=== PATIENT | male | born 1960 | race Caucasian/White ===

== ENCOUNTER 2021-08-30 08:23 | Inpatient (IN) ==
[2021-08-30] MEDS ORDERED: *HR* LORazepam 2 MG/ML VIAL ONE (09:04)
[2021-08-30 09:15] LABS: Basophils # 0.1 K/mcL (0.0-0.2); Basophils % 1.2 %; Eosinophils # 0.2 K/mcL (0.0-0.6); Eosinophils % 2.1 %; Hematocrit 46.3 % (37.5-50.1); Hemoglobin 14.9 g/dL (12.9-16.9); Immature Granulocytes % 0.4 % (0-4); Lymphocytes # 2.6 K/mcL (0.6-4.6); Lymphocytes % 27.7 %; Mean Corpuscular HGB Conc 32.2 g/dL (31.6-35.5); Mean Corpuscular Hemoglobin 30.9 pg (28.0-33.3); Mean Corpuscular Volume 96.1 fL (83.0-100.0); Mean Platelet Volume 11.6 fL (9.4-12.4); Monocytes # 0.8 K/mcL (0.0-1.3); Monocytes % 8.4 %; Neutrophils # 5.6 K/mcL (1.6-8.9); Platelet Count 204 K/mcL (140-400); Red Blood Count 4.82 M/mcL (4.19-5.50); Red Cell Distribution Width 13.8 % (11.5-14.5); Segmented Neutrophils % 60.2 %; White Blood Count 9.2 K/mcL (4.3-11.1)
[2021-08-30 09:22] LABS: INR 1.6; Prothrombin Time 17.9 Seconds (9.4-12.1)
[2021-08-30 09:30] LABS: BUN/Creatinine Ratio 19 (6-26); Blood Urea Nitrogen 21 mg/dL (8-23); Calcium 10.5 mg/dL (8.6-10.3); Carbon Dioxide 22 mEq/L (23-29); Chloride 104 mEq/L (98-107); Glucose 249 mg/dL (70-105); Osmolality,Calculated 291 (280-300); Sodium 135 mEq/L (136-145); eGFR For African Americans > 60 (> 60); eGFR For Non-African Americans > 60 (> 60)
[2021-08-30 09:31] LABS: Troponin I < 0.03 ng/mL (< 0.04)
[2021-08-30] MEDS ORDERED: Furosemide 40 MG/4 ML VIAL IVP ONE (10:01)
[2021-08-30 10:21] LABS: D-Dimer < 215 ng/mLFEU (0-500)
[2021-08-30] MEDS ORDERED: Naloxone 0.4 MG/ML INJ IVP PRN (10:59)
[2021-08-30] MEDS ORDERED: Ondansetron 4 MG/2 ML VIAL IVP PRN (10:59)
[2021-08-30] MEDS ORDERED: Acetaminophen 325 MG TABLET PO PRN (10:59)
[2021-08-30] MEDS ORDERED: Perflutren Lipid Microsphere 1.3 ML in 0.9 % Sodium Chloride 8.7 ML IVP PRN ×2 (11:10→13:25)
[2021-08-30] MEDS ORDERED: Ipratropium/Albuterol Neb 3 ML IH PRN (11:13)
[2021-08-30] MEDS ORDERED: *HR* Dextrose 50 % in Water (Syg) 50 ML SYRINGE IVP PRN (11:17)
[2021-08-30] MEDS ORDERED: Dextrose Gel 15 GM/37.5 ML TUBE PO PRN ×2 (11:17)
[2021-08-30] MEDS ORDERED: D5% in Water 1,000 ML IVC PRN (11:17)
[2021-08-30 11:44] LABS: Influenza A PCR Negative (Negative); Influenza B PCR Negative (Negative); Resp. Syncytial Virus PCR Negative (Negative); SARS-CoV-2 by PCR (In House) Negative (Negative)
[2021-08-30] MEDS ORDERED: Metoprolol XL (24 HR) Succ 25 MG TAB.ER.24H PO SCH (13:45)
[2021-08-30] MEDS ORDERED: Furosemide 40 MG/4 ML VIAL ONE (14:06)
[2021-08-30 15:53] LABS: Estimated Average Glucose 146 mg/dl; Hemoglobin A1C 6.7 %
[2021-08-30] MEDS: Furosemide 40 MG/4 ML VIAL IVP SCH (18:17)
[2021-08-30] MEDS: Insulin LISPRO 300 UNITS/3 ML VIAL SUBQ SCH ×2 (18:18→20:34)
[2021-08-30] MEDS: Spironolactone 25 MG TABLET PO SCH (18:18)
[2021-08-30] MEDS: *HR* Rivaroxaban 10 MG TABLET PO SCH (18:18)
[2021-08-30] MEDS: Metoprolol XL (24 HR) Succ 25 MG TAB.ER.24H PO SCH (20:34)
[2021-08-31 03:54] LABS: Basophils # 0.1 K/mcL (0.0-0.2); Basophils % 0.9 %; Eosinophils # 0.2 K/mcL (0.0-0.6); Eosinophils % 2.6 %; Hematocrit 42.6 % (37.5-50.1); Hemoglobin 13.7 g/dL (12.9-16.9); Immature Granulocytes % 0.4 % (0-4); Lymphocytes % 24.4 %; Mean Corpuscular HGB Conc 32.2 g/dL (31.6-35.5); Mean Corpuscular Hemoglobin 30.9 pg (28.0-33.3); Mean Corpuscular Volume 95.9 fL (83.0-100.0); Mean Platelet Volume 11.5 fL (9.4-12.4); Monocytes # 0.8 K/mcL (0.0-1.3); Monocytes % 9.5 %; Platelet Count 168 K/mcL (140-400); Red Blood Count 4.44 M/mcL (4.19-5.50); Red Cell Distribution Width 13.9 % (11.5-14.5); Segmented Neutrophils % 62.2 %; White Blood Count 8.1 K/mcL (4.3-11.1)
[2021-08-31 04:10] LABS: Alanine Aminotransferase 20 Units/L (7-52); Albumin 4.5 g/dL (3.5-5.7); Alkaline Phosphatase 27 Units/L (34-104); Aspartate Amino Transferase 15 Units/L (13-39); BUN/Creatinine Ratio 17 (6-26); Bilirubin,Total 1.5 mg/dL (0.3-1.0); Blood Urea Nitrogen 19 mg/dL (8-23); Calcium 9.8 mg/dL (8.6-10.3); Carbon Dioxide 29 mEq/L (23-29); Chloride 100 mEq/L (98-107); Chol/HDL Ratio 2.6 (0-4.9); Cholesterol 87 mg/dL (< 200); Globulin 2.2 g/dL (2.4-3.5); Glucose 136 mg/dL (70-105); HDL Cholesterol 34 mg/dL (40-59); LDL Cholesterol,Calculated 24 mg/dL (< 100); Osmolality,Calculated 292 (280-300); Potassium 3.8 mEq/L (3.5-5.1); Sodium 139 mEq/L (136-145); Total Protein 6.7 g/dL (6.4-8.9); Triglycerides 146 mg/dL (< 150); eGFR For African Americans > 60 (> 60); eGFR For Non-African Americans > 60 (> 60)
[2021-08-31] MEDS: Furosemide 40 MG/4 ML VIAL IVP SCH ×2 (08:51→17:53)
[2021-08-31] MEDS: Metoprolol XL (24 HR) Succ 25 MG TAB.ER.24H PO SCH ×2 (08:51→21:16)
[2021-08-31] MEDS: Spironolactone 25 MG TABLET PO SCH (08:51)
[2021-08-31] MEDS: Aspirin Enteric Coated 81 MG Tablet PO SCH (08:51)
[2021-08-31] MEDS: Insulin LISPRO 300 UNITS/3 ML VIAL SUBQ SCH ×4 (08:54→20:27)
[2021-08-31] MEDS ORDERED: Furosemide 40 MG/4 ML VIAL IVP SCH (09:00)
[2021-08-31 11:22] LABS: Magnesium 1.2 mg/dL (1.6-2.6); Phosphorous 4.2 mg/dL (2.7-4.5)
[2021-08-31] MEDS: metOLazone 5 MG TABLET PO SCH (12:18)
[2021-08-31] MEDS ORDERED: Magnesium Sulfate 1 GM/102 ML PIGGYBACK IVPB ONE (16:30)
[2021-08-31] MEDS: *HR* Rivaroxaban 10 MG TABLET PO SCH (17:53)
[2021-08-31 17:58] LABS: Bilirubin,Urine Negative (Negative); Blood,Urine Negative (Negative); Clarity,Urine Clear (Clear); Color,Urine Light-Yellow (Yellow); Glucose,Urine (UA) Normal (Normal); Ketones,Urine Negative (Negative); Leukocyte Esterase,Urine Negative (Negative); Nitrite,Urine Negative (Negative); PH,Urine 5.5 pH Units (5.0-8.0); Protein,Urine Negative (Neg-Trace); Specific Gravity,Urine 1.013 (1.010-1.025); Urobilinogen,Urine Normal (Normal)
[2021-09-01 04:29] LABS: Basophils # 0.1 K/mcL (0.0-0.2); Basophils % 1.1 %; Eosinophils # 0.2 K/mcL (0.0-0.6); Hematocrit 43.7 % (37.5-50.1); Hemoglobin 14.8 g/dL (12.9-16.9); Immature Granulocytes % 0.3 % (0-4); Lymphocytes # 2.3 K/mcL (0.6-4.6); Lymphocytes % 32.4 %; Mean Corpuscular HGB Conc 33.9 g/dL (31.6-35.5); Mean Corpuscular Hemoglobin 31.3 pg (28.0-33.3); Mean Corpuscular Volume 92.4 fL (83.0-100.0); Mean Platelet Volume 11.2 fL (9.4-12.4); Monocytes # 0.8 K/mcL (0.0-1.3); Monocytes % 11.9 %; Neutrophils # 3.6 K/mcL (1.6-8.9); Platelet Count 166 K/mcL (140-400); Red Blood Count 4.73 M/mcL (4.19-5.50); Red Cell Distribution Width 13.7 % (11.5-14.5); Segmented Neutrophils % 51.3 %
[2021-09-01 04:42] LABS: BUN/Creatinine Ratio 23 (6-26); Blood Urea Nitrogen 27 mg/dL (8-23); Calcium 10.2 mg/dL (8.6-10.3); Carbon Dioxide 30 mEq/L (23-29); Chloride 96 mEq/L (98-107); Glucose 159 mg/dL (70-105); Magnesium 1.7 mg/dL (1.6-2.6); Osmolality,Calculated 292 (280-300); Potassium 3.5 mEq/L (3.5-5.1); Sodium 137 mEq/L (136-145); eGFR For African Americans > 60 (> 60); eGFR For Non-African Americans > 60 (> 60)
[2021-09-01] MEDS ORDERED: *HR* Metoprolol 5 MG/5 ML VIAL IVP ONE (06:45)
[2021-09-01] MEDS: Furosemide 40 MG/4 ML VIAL IVP SCH ×2 (09:22→17:12)
[2021-09-01] MEDS: metOLazone 5 MG TABLET PO SCH (09:22)
[2021-09-01] MEDS: Aspirin Enteric Coated 81 MG Tablet PO SCH (09:22)
[2021-09-01] MEDS: Spironolactone 25 MG TABLET PO SCH (09:22)
[2021-09-01] MEDS: Metoprolol XL (24 HR) Succ 25 MG TAB.ER.24H PO SCH (09:22)
[2021-09-01] MEDS: Insulin LISPRO 300 UNITS/3 ML VIAL SUBQ SCH ×4 (09:23→20:11)
[2021-09-01] MEDS: *HR* Rivaroxaban 10 MG TABLET PO SCH (17:13)
[2021-09-01] MEDS: Metoprolol XL (24 HR) Succ 50 MG TAB.ER.24H PO SCH (20:11)
[2021-09-02 03:42] LABS: Basophils # 0.1 K/mcL (0.0-0.2); Basophils % 1.1 %; Eosinophils # 0.2 K/mcL (0.0-0.6); Hematocrit 45.7 % (37.5-50.1); Hemoglobin 15.1 g/dL (12.9-16.9); Immature Granulocytes % 0.3 % (0-4); Lymphocytes # 2.2 K/mcL (0.6-4.6); Lymphocytes % 27.5 %; Mean Corpuscular Hemoglobin 30.6 pg (28.0-33.3); Mean Corpuscular Volume 92.5 fL (83.0-100.0); Mean Platelet Volume 10.9 fL (9.4-12.4); Monocytes % 12.4 %; Neutrophils # 4.5 K/mcL (1.6-8.9); Platelet Count 171 K/mcL (140-400); Red Blood Count 4.94 M/mcL (4.19-5.50); Red Cell Distribution Width 13.8 % (11.5-14.5); Segmented Neutrophils % 55.7 %
[2021-09-02 04:14] LABS: BUN/Creatinine Ratio 28 (6-26); Blood Urea Nitrogen 40 mg/dL (8-23); Carbon Dioxide 29 mEq/L (23-29); Chloride 93 mEq/L (98-107); Glucose 206 mg/dL (70-105); Potassium 3.4 mEq/L (3.5-5.1); Sodium 137 mEq/L (136-145); eGFR For African Americans > 60 (> 60); eGFR For Non-African Americans 50 (> 60)
[2021-09-02 04:15] LABS: Calcium 10.5 mg/dL (8.6-10.3); Magnesium 1.6 mg/dL (1.6-2.6); Osmolality,Calculated 300 (280-300); Phosphorous 5.2 mg/dL (2.7-4.5)
[2021-09-02 04:20] VITALS: TEMP 97.6
[2021-09-02] MEDS: Insulin LISPRO 300 UNITS/3 ML VIAL SUBQ SCH ×2 (10:42→13:01)
[2021-09-02] MEDS: Spironolactone 25 MG TABLET PO SCH (10:43)
[2021-09-02] MEDS: Aspirin Enteric Coated 81 MG Tablet PO SCH (10:43)
[2021-09-02] MEDS: metOLazone 5 MG TABLET PO SCH (10:57)
[2021-09-02] MEDS: Furosemide 40 MG/4 ML VIAL IVP SCH (10:57)
[2021-09-02] MEDS: Metoprolol XL (24 HR) Succ 50 MG TAB.ER.24H PO SCH ×2 (10:58→12:30)
[2021-09-02 11:13] VITALS: BP 120/86; PULSE 91; O2SAT 94
[2021-09-02] MEDS ORDERED: Metoprolol XL (24 HR) Succ 50 MG TAB.ER.24H PO SCH (21:00)
[2021-09-03] MEDS ORDERED: Furosemide 40 MG TABLET PO SCH (09:00)
[2021-09-03] MEDS ORDERED: Metoprolol XL (24 HR) Succ 50 MG TAB.ER.24H PO ONE (09:26)
== END 2021-09-02 16:05 | disposition home or self-care (01) | DRG 291 ==
LOC: EMEROOARM 08:23 → 2ANU 08:23
PROVIDERS: ADMIT General Practice; ATTEND General Practice

== ENCOUNTER 2021-09-30 07:34 | Inpatient (IN) ==
[2021-09-30] MEDS ORDERED: 0.9 % Sodium Chloride 1,000 ML ONE ×2 (07:42→08:21)
[2021-09-30] MEDS ORDERED: ISOVUE-370 200 ML INFUS..BTL ONE (08:21)
[2021-09-30] MEDS ORDERED: *HR* Heparin 10,000 UNIT/10 ML VIAL ONE (08:21)
[2021-09-30] MEDS ORDERED: Heparin 1,000 UNITS/500 mL 500 ML ONE (08:21)
[2021-09-30] MEDS ORDERED: Nitroglycerin 1,000 MCG/5 ML VIAL IV ONE (08:21)
[2021-09-30 08:25] LABS: INR 1.3
[2021-09-30] MEDS ORDERED: *HR* FentaNYL (PF) 100 MCG/2 ML VIAL ONE (08:28)
[2021-09-30] MEDS ORDERED: *HR* Midazolam HCl 2 MG/2 ML VIAL ONE (08:29)
[2021-09-30] MEDS ORDERED: Tirofiban 12.5 MG/250ML 0 MG/0 ML BAG ONE (08:59)
[2021-09-30] MEDS ORDERED: *HR* Heparin 5,000 UNIT/ML VIAL IVP PRN ×2 (10:43)
[2021-09-30 12:22] LABS: Basophils # 0.1 K/mcL (0.0-0.2); Basophils % 1.7 %; Eosinophils # 0.7 K/mcL (0.0-0.6); Eosinophils % 12.6 %; Hematocrit 42.1 % (37.5-50.1); Hemoglobin 14.1 g/dL (12.9-16.9); Immature Granulocytes % 0.3 % (0-4); Lymphocytes # 1.1 K/mcL (0.6-4.6); Lymphocytes % 18.9 %; Mean Corpuscular HGB Conc 33.5 g/dL (31.6-35.5); Mean Corpuscular Hemoglobin 31.2 pg (28.0-33.3); Mean Corpuscular Volume 93.1 fL (83.0-100.0); Mean Platelet Volume 11.7 fL (9.4-12.4); Monocytes # 0.4 K/mcL (0.0-1.3); Monocytes % 7.1 %; Neutrophils # 3.5 K/mcL (1.6-8.9); Platelet Count 145 K/mcL (140-400); Red Blood Count 4.52 M/mcL (4.19-5.50); Red Cell Distribution Width 14.5 % (11.5-14.5); Segmented Neutrophils % 59.4 %; White Blood Count 5.9 K/mcL (4.3-11.1)
[2021-09-30 12:30] LABS: Activated Partial Thrombo Time 33.2 Seconds (26.0-36.0); Heparin anti-factor XA UFH < 0.04 IU/mL (0.30-0.70)
[2021-09-30 12:39] LABS: BUN/Creatinine Ratio 18 (6-26); Blood Urea Nitrogen 24 mg/dL (8-23); Calcium 10.2 mg/dL (8.6-10.3); Carbon Dioxide 27 mEq/L (23-29); Chloride 99 mEq/L (98-107); Glucose 262 mg/dL (70-105); Osmolality,Calculated 299 (280-300); Potassium 4.1 mEq/L (3.5-5.1); Sodium 138 mEq/L (136-145); eGFR For African Americans > 60 (> 60); eGFR For Non-African Americans 55 (> 60)
[2021-09-30] MEDS ORDERED: *HR* Heparin 5,000 UNIT/ML VIAL IVP ONE (13:00)
[2021-09-30] MEDS: Heparin 25,000UNIT/250ML 1/2NS 25,000 UNIT/250 ML IV.SOLN IVC SCH (13:16)
[2021-09-30] MEDS: Metoprolol XL (24 HR) Succ 50 MG TAB.ER.24H PO SCH (21:13)
[2021-09-30] MEDS: Pregabalin 75 MG CAPSULE PO SCH (21:13)
[2021-10-01 04:50] LABS: Basophils # 0.1 K/mcL (0.0-0.2); Basophils % 1.7 %; Eosinophils # 1.1 K/mcL (0.0-0.6); Eosinophils % 17.1 %; Hematocrit 43.2 % (37.5-50.1); Hemoglobin 13.8 g/dL (12.9-16.9); Immature Granulocytes % 0.2 % (0-4); Lymphocytes # 2.5 K/mcL (0.6-4.6); Mean Corpuscular HGB Conc 31.9 g/dL (31.6-35.5); Mean Corpuscular Hemoglobin 30.1 pg (28.0-33.3); Mean Corpuscular Volume 94.3 fL (83.0-100.0); Mean Platelet Volume 11.1 fL (9.4-12.4); Monocytes # 0.6 K/mcL (0.0-1.3); Monocytes % 9.7 %; Neutrophils # 2.2 K/mcL (1.6-8.9); Platelet Count 135 K/mcL (140-400); Red Blood Count 4.58 M/mcL (4.19-5.50); Red Cell Distribution Width 14.3 % (11.5-14.5); Segmented Neutrophils % 33.3 %; White Blood Count 6.6 K/mcL (4.3-11.1)
[2021-10-01 05:10] LABS: BUN/Creatinine Ratio 18 (6-26); Blood Urea Nitrogen 22 mg/dL (8-23); Carbon Dioxide 26 mEq/L (23-29); Chloride 101 mEq/L (98-107); Glucose 151 mg/dL (70-105); Osmolality,Calculated 292 (280-300); Potassium 3.9 mEq/L (3.5-5.1); Sodium 138 mEq/L (136-145); eGFR For African Americans > 60 (> 60); eGFR For Non-African Americans 59 (> 60)
[2021-10-01] MEDS: Heparin 25,000UNIT/250ML 1/2NS 25,000 UNIT/250 ML IV.SOLN IVC SCH (07:11)
[2021-10-01] MEDS: Spironolactone 25 MG TABLET PO SCH (08:04)
[2021-10-01] MEDS: Aspirin Enteric Coated 81 MG Tablet PO SCH (08:04)
[2021-10-01] MEDS: Fenofibrate 54 MG TABLET PO SCH (08:04)
[2021-10-01] MEDS: Finasteride 5 MG TABLET PO SCH (08:04)
[2021-10-01] MEDS: Metoprolol XL (24 HR) Succ 50 MG TAB.ER.24H PO SCH ×2 (08:04→20:33)
[2021-10-01] MEDS: Cholecalciferol (D-3) 1,000 UNIT (25MCG) TABLET PO SCH (08:04)
[2021-10-01] MEDS: Pregabalin 75 MG CAPSULE PO SCH ×2 (08:04→20:32)
[2021-10-01] MEDS: Furosemide 40 MG TABLET PO SCH (08:04)
[2021-10-01] MEDS: (Fish Oil/Dha/Epa [Fish Oil 1,200 Mg Fish Oil] 1 EACH PO SCH (08:07)
[2021-10-01] MEDS ORDERED: lisinopriL 20 MG TABLET PO SCH (09:00)
[2021-10-02] MEDS: Heparin 25,000UNIT/250ML 1/2NS 25,000 UNIT/250 ML IV.SOLN IVC SCH ×2 (01:56→09:03)
[2021-10-02 05:17] LABS: Basophils % 1.9 %; Immature Granulocytes % 0.2 % (0-4); Red Cell Distribution Width 14.6 % (11.5-14.5)
[2021-10-02 05:19] LABS: Basophils # 0.1 K/mcL (0.0-0.2); Eosinophils # 0.7 K/mcL (0.0-0.6); Eosinophils % 13.7 %; Hematocrit 40.9 % (37.5-50.1); Hemoglobin 13.5 g/dL (12.9-16.9); Immature Platelets 5.6 % (1.1-6.1); Lymphocytes # 2.2 K/mcL (0.6-4.6); Lymphocytes % 41.6 %; Mean Corpuscular Hemoglobin 30.8 pg (28.0-33.3); Mean Corpuscular Volume 93.2 fL (83.0-100.0); Mean Platelet Volume 11.1 fL (9.4-12.4); Monocytes # 0.6 K/mcL (0.0-1.3); Monocytes % 10.8 %; Neutrophils # 1.7 K/mcL (1.6-8.9); Platelet Count 129 K/mcL (140-400); Red Blood Count 4.39 M/mcL (4.19-5.50); Segmented Neutrophils % 31.8 %; White Blood Count 5.3 K/mcL (4.3-11.1)
[2021-10-02 05:57] LABS: BUN/Creatinine Ratio 19 (6-26); Blood Urea Nitrogen 26 mg/dL (8-23); Calcium 9.9 mg/dL (8.6-10.3); Carbon Dioxide 27 mEq/L (23-29); Chloride 102 mEq/L (98-107); Glucose 157 mg/dL (70-105); Osmolality,Calculated 292 (280-300); Potassium 3.9 mEq/L (3.5-5.1); Sodium 137 mEq/L (136-145); eGFR For African Americans > 60 (> 60); eGFR For Non-African Americans 53 (> 60)
[2021-10-02] MEDS: Aspirin Enteric Coated 81 MG Tablet PO SCH (07:39)
[2021-10-02] MEDS: Cholecalciferol (D-3) 1,000 UNIT (25MCG) TABLET PO SCH (07:39)
[2021-10-02] MEDS: Furosemide 40 MG TABLET PO SCH (07:39)
[2021-10-02] MEDS: Pregabalin 75 MG CAPSULE PO SCH ×2 (07:40→21:09)
[2021-10-02] MEDS: lisinopriL 20 MG TABLET PO SCH (07:40)
[2021-10-02] MEDS: (Fish Oil/Dha/Epa [Fish Oil 1,200 Mg Fish Oil] 1 EACH PO SCH (07:40)
[2021-10-02] MEDS: Metoprolol XL (24 HR) Succ 50 MG TAB.ER.24H PO SCH ×2 (07:40→21:09)
[2021-10-02] MEDS: Spironolactone 25 MG TABLET PO SCH (07:40)
[2021-10-02] MEDS: Finasteride 5 MG TABLET PO SCH (07:40)
[2021-10-02] MEDS: Fenofibrate 54 MG TABLET PO SCH (07:40)
[2021-10-02] MEDS ORDERED: CeFAZolin Syr 2,000MG/20 ML 2,000 MG/20 ML SYRINGE IVPB ONE (15:22)
[2021-10-02] MEDS ORDERED: Heparin 1,000 UNITS/500 mL 1,000 ML ONE (15:39)
[2021-10-02 16:20] LABS: Basophils # 0.1 K/mcL (0.0-0.2); Basophils % 2.1 %; Eosinophils # 0.4 K/mcL (0.0-0.6); Eosinophils % 9.2 %; Hematocrit 44.4 % (37.5-50.1); Hemoglobin 14.7 g/dL (12.9-16.9); Immature Granulocytes % 0.2 % (0-4); Immature Platelets 5.3 % (1.1-6.1); Lymphocytes # 1.7 K/mcL (0.6-4.6); Lymphocytes % 35.9 %; Mean Corpuscular HGB Conc 33.1 g/dL (31.6-35.5); Mean Corpuscular Volume 93.7 fL (83.0-100.0); Mean Platelet Volume 10.8 fL (9.4-12.4); Monocytes # 0.5 K/mcL (0.0-1.3); Monocytes % 11.1 %; Platelet Count 136 K/mcL (140-400); Red Blood Count 4.74 M/mcL (4.19-5.50); Red Cell Distribution Width 14.4 % (11.5-14.5); Segmented Neutrophils % 41.5 %; White Blood Count 4.8 K/mcL (4.3-11.1)
[2021-10-02 16:29] LABS: INR 1.2; Prothrombin Time 13.6 Seconds (9.4-12.1)
[2021-10-02 16:32] LABS: Activated Partial Thrombo Time 62.7 Seconds (26.0-36.0)
[2021-10-02 16:51] LABS: Estimated Average Glucose 146 mg/dl; Hemoglobin A1C 6.7 %
[2021-10-02] MEDS ORDERED: *HR* FentaNYL (PF) 100 MCG/2 ML VIAL ONE (16:55)
[2021-10-02] MEDS ORDERED: *HR* Midazolam HCl 2 MG/2 ML VIAL ONE (16:55)
[2021-10-02 16:59] LABS: BUN/Creatinine Ratio 17 (6-26); Blood Urea Nitrogen 23 mg/dL (8-23); Calcium 10.7 mg/dL (8.6-10.3); Carbon Dioxide 27 mEq/L (23-29); Chloride 102 mEq/L (98-107); Chol/HDL Ratio 3.2 (0-4.9); Cholesterol 93 mg/dL (< 200); Glucose 136 mg/dL (70-105); HDL Cholesterol 29 mg/dL (40-59); LDL Cholesterol,Calculated 37 mg/dL (< 100); Osmolality,Calculated 296 (280-300); Potassium 4.3 mEq/L (3.5-5.1); Sodium 140 mEq/L (136-145); Triglycerides 137 mg/dL (< 150); eGFR For African Americans > 60 (> 60); eGFR For Non-African Americans 52 (> 60)
[2021-10-02] MEDS ORDERED: 0.9 % Sodium Chloride 250 ML ONE (17:08)
[2021-10-02 19:20] LABS: Basophils # 0.1 K/mcL (0.0-0.2); Basophils % 1.3 %; Eosinophils # 0.4 K/mcL (0.0-0.6); Eosinophils % 7.6 %; Hematocrit 42.9 % (37.5-50.1); Immature Platelets 5.1 % (1.1-6.1); Lymphocytes # 1.7 K/mcL (0.6-4.6); Lymphocytes % 37.2 %; Mean Corpuscular HGB Conc 32.6 g/dL (31.6-35.5); Mean Corpuscular Hemoglobin 30.6 pg (28.0-33.3); Mean Corpuscular Volume 93.7 fL (83.0-100.0); Mean Platelet Volume 10.7 fL (9.4-12.4); Monocytes # 0.5 K/mcL (0.0-1.3); Monocytes % 10.4 %; Platelet Count 127 K/mcL (140-400); Red Blood Count 4.58 M/mcL (4.19-5.50); Red Cell Distribution Width 14.3 % (11.5-14.5); Segmented Neutrophils % 43.5 %; White Blood Count 4.6 K/mcL (4.3-11.1)
[2021-10-02 19:23] LABS: INR 1.2; Prothrombin Time 13.9 Seconds (9.4-12.1)
[2021-10-02 19:26] LABS: Activated Partial Thrombo Time 42.5 Seconds (26.0-36.0)
[2021-10-02] MEDS: Chlorhexidine Rinse 15 ML MOUTHWASH MM SCH (21:09)
[2021-10-03] MEDS: Heparin 25,000UNIT/250ML 1/2NS 25,000 UNIT/250 ML IV.SOLN IVC SCH ×2 (01:00→13:41)
[2021-10-03] MEDS ORDERED: Aspirin 81 MG TAB.CHEW PO ONE (06:00)
[2021-10-03] MEDS ORDERED: CeFAZolin Syr 2,000MG/20 ML 2,000 MG/20 ML SYRINGE IVPB ONE ×2 (07:00→12:00)
[2021-10-03] MEDS: Aspirin Enteric Coated 81 MG Tablet PO SCH (07:11)
[2021-10-03] MEDS: Chlorhexidine Rinse 15 ML MOUTHWASH MM SCH ×2 (07:11→19:44)
[2021-10-03] MEDS: Pregabalin 75 MG CAPSULE PO SCH (07:11)
[2021-10-03] MEDS: Finasteride 5 MG TABLET PO SCH (07:12)
[2021-10-03] MEDS: Fenofibrate 54 MG TABLET PO SCH (07:12)
[2021-10-03] MEDS: Spironolactone 25 MG TABLET PO SCH (07:12)
[2021-10-03] MEDS: Cholecalciferol (D-3) 1,000 UNIT (25MCG) TABLET PO SCH (07:12)
[2021-10-03] MEDS: Furosemide 40 MG TABLET PO SCH (07:12)
[2021-10-03] MEDS: (Fish Oil/Dha/Epa [Fish Oil 1,200 Mg Fish Oil] 1 EACH PO SCH (07:15)
[2021-10-03] MEDS ORDERED: DOBUTamine 1,000 MG/250 ML BAG IVC SCH (07:15)
[2021-10-03] MEDS: lisinopriL 20 MG TABLET PO SCH (07:17)
[2021-10-03 07:28] LABS: Basophils % 1.3 %; Hemoglobin 14.1 g/dL (12.9-16.9); Monocytes % 9.9 %; Red Cell Distribution Width 14.5 % (11.5-14.5)
[2021-10-03 07:30] LABS: Basophils # 0.1 K/mcL (0.0-0.2); Eosinophils # 0.3 K/mcL (0.0-0.6); Eosinophils % 4.6 %; Hematocrit 42.9 % (37.5-50.1); Immature Granulocytes % 0.2 % (0-4); Immature Platelets 5.6 % (1.1-6.1); Lymphocytes # 1.6 K/mcL (0.6-4.6); Mean Corpuscular HGB Conc 32.9 g/dL (31.6-35.5); Mean Corpuscular Hemoglobin 30.7 pg (28.0-33.3); Mean Corpuscular Volume 93.5 fL (83.0-100.0); Mean Platelet Volume 10.9 fL (9.4-12.4); Monocytes # 0.6 K/mcL (0.0-1.3); Neutrophils # 3.7 K/mcL (1.6-8.9); Platelet Count 125 K/mcL (140-400); Red Blood Count 4.59 M/mcL (4.19-5.50); White Blood Count 6.3 K/mcL (4.3-11.1)
[2021-10-03] MEDS ORDERED: Norepinephrine 4 MG in 0.9 % Sodium Chloride 250 ML IVC PRN ×2 (07:45→16:28)
[2021-10-03] MEDS ORDERED: Buckersberg's Blood Cardioplegia PF SCH (07:45)
[2021-10-03] MEDS ORDERED: Heparin 15,000 UNIT in 0.9 % Sodium Chloride 500 ML IV ONE (07:45)
[2021-10-03 08:18] LABS: BUN/Creatinine Ratio 17 (6-26); Blood Urea Nitrogen 22 mg/dL (8-23); Calcium 9.9 mg/dL (8.6-10.3); Carbon Dioxide 29 mEq/L (23-29); Chloride 101 mEq/L (98-107); Glucose 159 mg/dL (70-105); Osmolality,Calculated 295 (280-300); Potassium 4.1 mEq/L (3.5-5.1); Sodium 139 mEq/L (136-145); eGFR For African Americans > 60 (> 60); eGFR For Non-African Americans 55 (> 60)
[2021-10-03] MEDS: Metoprolol XL (24 HR) Succ 50 MG TAB.ER.24H PO SCH (08:44)
[2021-10-03] MEDS: Albumin Human 5% 50.0 GM/1,000 ML IV.SOLN ONE ×2 (09:32→16:17)
[2021-10-03] MEDS ORDERED: NiCARdipine 2.5 MG/10 ML Syringe IVPB ONE (10:29)
[2021-10-03] MEDS ORDERED: *HR* Vasopressin 20 UNIT/ML VIAL ONE (10:29)
[2021-10-03] MEDS ORDERED: Papaverine 60 MG/2 ML VIAL IVP ONE (10:39)
[2021-10-03] MEDS ORDERED: *HR* Midazolam HCl 5 MG/5 ML VIAL IVP ONE (10:43)
[2021-10-03] MEDS ORDERED: *HR* FentaNYL (PF) 1,000 MCG/20 ML VIAL ONE (10:43)
[2021-10-03] MEDS ORDERED: *HR* Propofol 200 MG/20 ML VIAL IVP ONE (10:43)
[2021-10-03] MEDS ORDERED: *HR* Magnesium Sulfate 1 GM/2 ML VIAL ONE (10:47)
[2021-10-03] MEDS ORDERED: Famotidine 20 MG/2 ML VIAL ONE (10:47)
[2021-10-03] MEDS ORDERED: Tranexamic Acid 1,000 MG/10 ML VIAL ONE (10:52)
[2021-10-03] MEDS ORDERED: Lidocaine 2% Syringe 100 MG/5 ML ONE (10:57)
[2021-10-03] MEDS ORDERED: *HR* Rocuronium Bromide 50 MG/5 ML VIAL ONE ×2 (10:59→13:37)
[2021-10-03] MEDS ORDERED: Albumin Human 5% 12.5 GM/250 ML IV.SOLN ONE ×2 (11:01→14:54)
[2021-10-03] MEDS ORDERED: Heparin 1,000 UNITS/500 mL IV.SOLN IR ONE (13:00)
[2021-10-03] MEDS ORDERED: D5% in Water 250 ML IV BAG IV ONE (13:00)
[2021-10-03 13:23] LABS: ABG Base Excess 2 mEq/L (-2 to 3); ABG Chloride 101 mEq/L (98-107); ABG Glucose 147 mg/dL (60-95); ABG HCO3 31 mEq/L (21-27); ABG Ionized Calcium 1.32 mmol/L (1.15-1.35); ABG Oxygen Saturation 100 % (95-98); ABG PCO2 64 mmHg (35-45); ABG PO2 324 mmHg (85-104); ABG TCO2 33 mEq/L (20-26)
[2021-10-03] MEDS ORDERED: *HR* Metoprolol 5 MG/5 ML VIAL IVP ONE (13:56)
[2021-10-03 14:22] LABS: ABG Base Excess 1 mEq/L (-2 to 3); ABG Chloride 102 mEq/L (98-107); ABG Glucose 170 mg/dL (60-95); ABG HCO3 26 mEq/L (21-27); ABG Ionized Calcium 1.19 mmol/L (1.15-1.35); ABG Oxygen Saturation 98 % (95-98); ABG PCO2 40 mmHg (35-45); ABG PH 7.42 pH Units (7.32-7.45); ABG PO2 96 mmHg (85-104); ABG TCO2 27 mEq/L (20-26)
[2021-10-03] MEDS ORDERED: Calcium Gluconate 1,000 MG/10 ML VIAL ONE (14:51)
[2021-10-03] MEDS ORDERED: Protamine Sulfate 250 MG/25 ML VIAL IVP ONE (14:51)
[2021-10-03 14:56] LABS: ABG Base Excess -1 mEq/L (-2 to 3); ABG Chloride 103 mEq/L (98-107); ABG Glucose 245 mg/dL (60-95); ABG HCO3 23 mEq/L (21-27); ABG Ionized Calcium 1.15 mmol/L (1.15-1.35); ABG Oxygen Saturation 100 % (95-98); ABG PCO2 34 mmHg (35-45); ABG PH 7.43 pH Units (7.32-7.45); ABG PO2 216 mmHg (85-104); ABG TCO2 24 mEq/L (20-26)
[2021-10-03] MEDS ORDERED: *HR* Amiodarone 150 MG/3 ML VIAL IVPB ONE (15:03)
[2021-10-03] MEDS ORDERED: Amiodarone Premix 360 MG/200 ML BAG IVC ONE ×3 (15:03→16:28)
[2021-10-03] MEDS ORDERED: Sennosides 8.6 MG TABLET PO PRN ×2 (16:01→16:28)
[2021-10-03] MEDS ORDERED: Potassium Chloride 40 MEQ/200 ML BAG IVPB PRN ×2 (16:01→16:28)
[2021-10-03] MEDS ORDERED: *HR* OxyCODONE/APAP 5/325 TABLET PO PRN ×2 (16:01→16:28)
[2021-10-03] MEDS ORDERED: *HR* FentaNYL (PF) 100 MCG/2 ML VIAL IVP PRN ×2 (16:01→16:28)
[2021-10-03] MEDS ORDERED: Insulin Regular, Human 100 UNIT/ML IV PRN ×2 (16:01→16:28)
[2021-10-03] MEDS ORDERED: Acetaminophen 325 MG TABLET PO PRN (16:01)
[2021-10-03] MEDS ORDERED: Ondansetron 4 MG/2 ML VIAL IVP PRN ×2 (16:01→16:28)
[2021-10-03] MEDS ORDERED: *HR* Dextrose 50 % in Water (Syg) 50 ML SYRINGE IVP PRN ×2 (16:01→16:28)
[2021-10-03] MEDS ORDERED: Calcium Gluconate 1gm/50mL 1 GM/50 ML BAG IVPB PRN ×2 (16:01→16:28)
[2021-10-03] MEDS ORDERED: Norepinephrine 4 MG/254 ML IV.SOLN IVC SCH (16:15)
[2021-10-03 16:24] LABS: ABG Base Excess -4 mEq/L (-2 to 3); ABG HCO3 23 mEq/L (21-27); ABG Oxygen Saturation 97 % (95-98); ABG PCO2 45 mmHg (35-45); ABG PH 7.31 pH Units (7.32-7.45); ABG PO2 97 mmHg (85-104); ABG TCO2 24 mEq/L (20-26); Blood Gas VT 500 cc
[2021-10-03] MEDS ORDERED: Heparin 25,000UNIT/250ML 1/2NS 25,000 UNIT/250 ML IV.SOLN IVC SCH (16:28)
[2021-10-03] MEDS ORDERED: *HR* Heparin 5,000 UNIT/ML VIAL IVP PRN ×2 (16:28)
[2021-10-03 16:30] LABS: Basophils # 0.2 K/mcL (0.0-0.2); Basophils % 0.9 %; Eosinophils # 0.3 K/mcL (0.0-0.6); Eosinophils % 1.4 %; Hematocrit 40.7 % (37.5-50.1); Hemoglobin 13.4 g/dL (12.9-16.9); Immature Granulocytes % 1.1 % (0-4); Lymphocytes # 1.3 K/mcL (0.6-4.6); Lymphocytes % 6.9 %; Mean Corpuscular HGB Conc 32.9 g/dL (31.6-35.5); Mean Corpuscular Hemoglobin 31.1 pg (28.0-33.3); Mean Corpuscular Volume 94.4 fL (83.0-100.0); Mean Platelet Volume 11.3 fL (9.4-12.4); Monocytes # 0.9 K/mcL (0.0-1.3); Monocytes % 4.7 %; Neutrophils # 15.7 K/mcL (1.6-8.9); Platelet Count 194 K/mcL (140-400); Red Blood Count 4.31 M/mcL (4.19-5.50); Red Cell Distribution Width 14.2 % (11.5-14.5)
[2021-10-03 16:32] LABS: White Blood Count 18.5 K/mcL (4.3-11.1)
[2021-10-03 16:36] LABS: INR 1.5; Prothrombin Time 16.4 Seconds (9.4-12.1)
[2021-10-03 16:38] LABS: ABG Base Excess -3 mEq/L (-2 to 3); ABG HCO3 23 mEq/L (21-27); ABG Oxygen Saturation 99 % (95-98); ABG PCO2 45 mmHg (35-45); ABG PH 7.32 pH Units (7.32-7.45); ABG PO2 149 mmHg (85-104); ABG TCO2 25 mEq/L (20-26)
[2021-10-03 16:38] LABS: Activated Partial Thrombo Time 23.1 Seconds (26.0-36.0)
[2021-10-03 16:45] LABS: BUN/Creatinine Ratio 16 (6-26); Blood Urea Nitrogen 22 mg/dL (8-23); Calcium 9.4 mg/dL (8.6-10.3); Carbon Dioxide 24 mEq/L (23-29); Chloride 102 mEq/L (98-107); Glucose 289 mg/dL (70-105); Magnesium 1.6 mg/dL (1.6-2.6); Osmolality,Calculated 298 (280-300); Potassium 3.8 mEq/L (3.5-5.1); Sodium 137 mEq/L (136-145); eGFR For African Americans > 60 (> 60); eGFR For Non-African Americans 54 (> 60)
[2021-10-03] MEDS: Dexmedetomidine HCl 400 MCG/100 ML MLS IVC SCH ×2 (17:35→23:04)
[2021-10-03] MEDS: FentaNYL (PF) 1,000 MCG/100 ML IV.SOLN IVC SCH (17:36)
[2021-10-03] MEDS: Norepinephrine 4 MG/254 ML IV.SOLN IVC SCH ×2 (17:37→23:36)
[2021-10-03] MEDS ORDERED: Albumin Human 5% 25.0 GM/500 ML IV.SOLN ONE (17:38)
[2021-10-03] MEDS: Albumin Human 5% 12.5 GM/250 ML IV.SOLN IVPB PRN ×9 (17:40→21:13)
[2021-10-03] MEDS: DOBUTamine 1,000 MG/250 ML BAG IVC SCH (17:41)
[2021-10-03] MEDS ORDERED: 0.9 % Sodium Chloride 500 ML ONE (18:36)
[2021-10-03] MEDS ORDERED: 0.9 % Sodium Chloride 500 ML IVC PRN (18:39)
[2021-10-03] MEDS: CeFAZolin 2 GM/120 ML BAG IVPB SCH (19:45)
[2021-10-03] MEDS ORDERED: CeFAZolin 2 GM/120 ML BAG IVPB SCH (20:00)
[2021-10-03 20:13] LABS: ABG Base Excess -2 mEq/L (-2 to 3); ABG HCO3 24 mEq/L (21-27); ABG Oxygen Saturation 95 % (95-98); ABG PCO2 44 mmHg (35-45); ABG PH 7.33 pH Units (7.32-7.45); ABG PO2 83 mmHg (85-104); ABG TCO2 25 mEq/L (20-26); Blood Gas Modality ASSIST CONTROL; Blood Gas VT 500 cc
[2021-10-03] MEDS: Amiodarone Premix 360 MG/200 ML BAG IVC SCH (20:19)
[2021-10-03] MEDS ORDERED: Chlorhexidine Rinse 15 ML MOUTHWASH MM SCH (21:00)
[2021-10-03] MEDS ORDERED: Amiodarone Premix 360 MG/200 ML BAG IVC SCH (22:04)
[2021-10-04] MEDS ORDERED: Furosemide 20 MG/2 ML VIAL IVP ONE (00:08)
[2021-10-04 00:09] LABS: ABG Base Excess -4 mEq/L (-2 to 3); ABG HCO3 23 mEq/L (21-27); ABG Oxygen Saturation 93 % (95-98); ABG PCO2 49 mmHg (35-45); ABG PH 7.28 pH Units (7.32-7.45); ABG PO2 74 mmHg (85-104); ABG TCO2 24 mEq/L (20-26); Blood Gas VT 500 cc
[2021-10-04] MEDS: Acetaminophen 325 MG TABLET PO PRN ×2 (02:48→20:53)
[2021-10-04] MEDS: Dexmedetomidine HCl 400 MCG/100 ML MLS IVC SCH ×8 (02:54→23:17)
[2021-10-04 03:18] LABS: Basophils % 0.2 %; Eosinophils % 0.1 %; Hematocrit 31.6 % (37.5-50.1); Hemoglobin 10.5 g/dL (12.9-16.9); Immature Granulocytes % 0.5 % (0-4); Immature Platelets 8.2 % (1.1-6.1); Lymphocytes # 0.8 K/mcL (0.6-4.6); Lymphocytes % 6.5 %; Mean Corpuscular HGB Conc 33.2 g/dL (31.6-35.5); Mean Corpuscular Hemoglobin 31.4 pg (28.0-33.3); Mean Corpuscular Volume 94.6 fL (83.0-100.0); Mean Platelet Volume 11.5 fL (9.4-12.4); Monocytes # 1.2 K/mcL (0.0-1.3); Monocytes % 10.2 %; Neutrophils # 10.1 K/mcL (1.6-8.9); Platelet Count 134 K/mcL (140-400); Red Blood Count 3.34 M/mcL (4.19-5.50); Segmented Neutrophils % 82.5 %; White Blood Count 12.2 K/mcL (4.3-11.1)
[2021-10-04 03:22] LABS: INR 1.6; Prothrombin Time 17.4 Seconds (9.4-12.1)
[2021-10-04] MEDS: CeFAZolin 2 GM/120 ML BAG IVPB SCH (03:38)
[2021-10-04 04:00] LABS: Calcium 9.2 mg/dL (8.6-10.3); Magnesium 1.9 mg/dL (1.6-2.6); Potassium 4.8 mEq/L (3.5-5.1)
[2021-10-04] MEDS: FentaNYL (PF) 1,000 MCG/100 ML IV.SOLN IVC SCH ×4 (04:06→21:08)
[2021-10-04 04:18] LABS: ABG Base Excess -3 mEq/L (-2 to 3); ABG HCO3 24 mEq/L (21-27); ABG Oxygen Saturation 93 % (95-98); ABG PCO2 52 mmHg (35-45); ABG PH 7.27 pH Units (7.32-7.45); ABG PO2 75 mmHg (85-104); ABG TCO2 26 mEq/L (20-26); Blood Gas VT 500 cc
[2021-10-04] MEDS ORDERED: Furosemide 40 MG/4 ML VIAL IVP ONE (06:11)
[2021-10-04] MEDS ORDERED: Furosemide 40 MG/4 ML VIAL ONE (06:12)
[2021-10-04] MEDS: DOBUTamine 1,000 MG/250 ML BAG IVC SCH (06:22)
[2021-10-04] MEDS ORDERED: *HR* Midazolam HCl 5 MG/5 ML VIAL IVP ONE ×3 (07:03→12:45)
[2021-10-04] MEDS ORDERED: *HR* Midazolam HCl 2 MG/2 ML VIAL IVP ONE (07:40)
[2021-10-04] MEDS: Amiodarone Premix 360 MG/200 ML BAG IVC SCH (07:46)
[2021-10-04] MEDS: Pantoprazole 40 MG VIAL IVP SCH (08:26)
[2021-10-04] MEDS: Fenofibrate 54 MG TABLET PO SCH (08:27)
[2021-10-04] MEDS: Finasteride 5 MG TABLET PO SCH (08:28)
[2021-10-04] MEDS: lisinopriL 20 MG TABLET PO SCH (08:28)
[2021-10-04] MEDS: Chlorhexidine Rinse 15 ML MOUTHWASH MM SCH ×2 (08:28→20:03)
[2021-10-04] MEDS: Aspirin 81 MG TAB.CHEW PO SCH (08:35)
[2021-10-04] MEDS: Docusate Oral Soln 100 MG/10 ML UDC GTUBE SCH ×2 (08:35→20:03)
[2021-10-04] MEDS: Norepinephrine 4 MG/254 ML IV.SOLN IVC SCH ×6 (08:50→20:15)
[2021-10-04] MEDS ORDERED: Pantoprazole 40 MG VIAL IVP SCH (09:00)
[2021-10-04] MEDS ORDERED: Aspirin Enteric Coated 81 MG Tablet PO SCH (09:00)
[2021-10-04] MEDS: Patient Taking Own Medication 1 EACH PO SCH (09:41)
[2021-10-04 10:08] LABS: ABG Base Excess 0 mEq/L (-2 to 3); ABG HCO3 25 mEq/L (21-27); ABG Oxygen Saturation 92 % (95-98); ABG PCO2 40 mmHg (35-45); ABG PO2 63 mmHg (85-104); ABG TCO2 26 mEq/L (20-26); Blood Gas Modality ASSIST CONTROL; Blood Gas VT 500 cc
[2021-10-04] MEDS: Furosemide 240 MG in 0.9 % Sodium Chloride 96 ML IVC SCH (11:05)
[2021-10-04] MEDS: Albumin 25% 25gram/100mL 25 GM/100 ML IV.SOLN IVPB SCH ×3 (11:19→23:00)
[2021-10-04] MEDS: ceFAZolin 2,000 MG in 0.9 % Sodium Chloride 100 ML IVPB SCH ×2 (11:41→19:03)
[2021-10-04] MEDS: *HR* Heparin 5,000 UNIT/ML VIAL SQ SCH ×2 (14:07→21:02)
[2021-10-04] MEDS: niCARdipine 20 MG/200 ML MLS IVC SCH ×4 (15:08→20:15)
[2021-10-04] MEDS: Artificial Tears SOLN 15 ML BOTTLE BOTH EYES SCH ×3 (15:11→20:02)
[2021-10-04] MEDS: Insulin LISPRO 300 UNITS/3 ML VIAL SUBQ SCH ×2 (19:07→23:00)
[2021-10-04 20:06] LABS: ABG Base Excess 0 mEq/L (-2 to 3); ABG HCO3 25 mEq/L (21-27); ABG Oxygen Saturation 94 % (95-98); ABG PCO2 41 mmHg (35-45); ABG PH 7.39 pH Units (7.32-7.45); ABG PO2 72 mmHg (85-104); ABG TCO2 26 mEq/L (20-26); Blood Gas VT 500 cc
[2021-10-05] MEDS: FentaNYL (PF) 1,000 MCG/100 ML IV.SOLN IVC SCH ×6 (01:25→23:00)
[2021-10-05] MEDS: Dexmedetomidine HCl 400 MCG/100 ML MLS IVC SCH ×10 (01:32→23:09)
[2021-10-05] MEDS: ceFAZolin 2,000 MG in 0.9 % Sodium Chloride 100 ML IVPB SCH (03:01)
[2021-10-05] MEDS: Insulin LISPRO 300 UNITS/3 ML VIAL SUBQ SCH ×6 (03:03→23:00)
[2021-10-05 03:15] LABS: VBG Ionized Calcium 1.12 mmol/L (1.15-1.35)
[2021-10-05 03:19] LABS: Red Cell Distribution Width 14.3 % (11.5-14.5)
[2021-10-05 03:21] LABS: Basophils # 0.1 K/mcL (0.0-0.2); Basophils % 0.6 %; Eosinophils % 0.5 %; Hematocrit 29.9 % (37.5-50.1); Hemoglobin 9.6 g/dL (12.9-16.9); Immature Granulocytes % 0.8 % (0-4); Immature Platelets 8.6 % (1.1-6.1); Lymphocytes # 0.9 K/mcL (0.6-4.6); Lymphocytes % 10.7 %; Mean Corpuscular HGB Conc 32.1 g/dL (31.6-35.5); Mean Corpuscular Hemoglobin 30.9 pg (28.0-33.3); Mean Corpuscular Volume 96.1 fL (83.0-100.0); Mean Platelet Volume 11.2 fL (9.4-12.4); Monocytes % 12.4 %; Neutrophils # 6.2 K/mcL (1.6-8.9); Red Blood Count 3.11 M/mcL (4.19-5.50); White Blood Count 8.2 K/mcL (4.3-11.1)
[2021-10-05 03:23] LABS: Platelet Count 72 K/mcL (140-400)
[2021-10-05] MEDS: Amiodarone Premix 360 MG/200 ML BAG IVC SCH (03:23)
[2021-10-05 03:36] LABS: Calcium 9.3 mg/dL (8.6-10.3); Phosphorous 3.3 mg/dL (2.7-4.5); Potassium 3.9 mEq/L (3.5-5.1)
[2021-10-05 04:30] LABS: ABG Base Excess 2 mEq/L (-2 to 3); ABG HCO3 27 mEq/L (21-27); ABG Oxygen Saturation 91 % (95-98); ABG PCO2 42 mmHg (35-45); ABG PH 7.41 pH Units (7.32-7.45); ABG PO2 61 mmHg (85-104); ABG TCO2 28 mEq/L (20-26); Blood Gas VT 500 cc
[2021-10-05] MEDS: *HR* Heparin 5,000 UNIT/ML VIAL SQ SCH ×3 (05:05→21:00)
[2021-10-05] MEDS: Albumin 25% 25gram/100mL 25 GM/100 ML IV.SOLN IVPB SCH ×3 (07:07→23:00)
[2021-10-05] MEDS: Artificial Tears SOLN 15 ML BOTTLE BOTH EYES SCH ×4 (07:08→20:01)
[2021-10-05] MEDS: Chlorhexidine Rinse 15 ML MOUTHWASH MM SCH ×2 (07:12→20:00)
[2021-10-05] MEDS: Docusate Oral Soln 100 MG/10 ML UDC GTUBE SCH ×2 (07:12→20:00)
[2021-10-05] MEDS: Pantoprazole 40 MG VIAL IVP SCH (07:13)
[2021-10-05] MEDS: lisinopriL 20 MG TABLET PO SCH (07:13)
[2021-10-05] MEDS: Fenofibrate 54 MG TABLET PO SCH (07:13)
[2021-10-05] MEDS: Aspirin 81 MG TAB.CHEW PO SCH (07:13)
[2021-10-05] MEDS: Finasteride 5 MG TABLET PO SCH (07:13)
[2021-10-05] MEDS: Patient Taking Own Medication 1 EACH PO SCH (07:15)
[2021-10-05] MEDS: niCARdipine 20 MG/200 ML MLS IVC SCH ×5 (07:15→20:26)
[2021-10-05] MEDS: Norepinephrine 4 MG/254 ML IV.SOLN IVC SCH ×4 (08:14→21:01)
[2021-10-05] MEDS: Furosemide 240 MG in 0.9 % Sodium Chloride 96 ML IVC SCH ×2 (08:16→09:42)
[2021-10-05] MEDS: Pregabalin 75 MG CAPSULE PO SCH ×2 (08:22→20:00)
[2021-10-05] MEDS ORDERED: Insulin DETEMIR 100 UNIT/ML X5UNITS SUBQ ONE (09:48)
[2021-10-05] MEDS: Acetaminophen 325 MG TABLET PO PRN ×2 (10:37→22:02)
[2021-10-05] MEDS: DOBUTamine 1,000 MG/250 ML BAG IVC SCH (13:39)
[2021-10-05 14:52] LABS: Magnesium 2.6 mg/dL (1.6-2.6)
[2021-10-05] MEDS: QUEtiapine Fumarate 25 MG TABLET PO SCH (20:00)
[2021-10-05] MEDS ORDERED: *HR* Metoprolol 5 MG/5 ML VIAL IVP ONE ×2 (20:18→20:20)
[2021-10-05] MEDS ORDERED: Insulin DETEMIR 100 UNIT/ML X5UNITS SUBQ SCH (21:00)
[2021-10-06] MEDS: Amiodarone Premix 360 MG/200 ML BAG IVC SCH ×2 (01:00→19:10)
[2021-10-06] MEDS: Dexmedetomidine HCl 400 MCG/100 ML MLS IVC SCH ×11 (01:00→23:47)
[2021-10-06] MEDS: Insulin LISPRO 300 UNITS/3 ML VIAL SUBQ SCH ×6 (03:01→23:06)
[2021-10-06] MEDS: FentaNYL (PF) 1,000 MCG/100 ML IV.SOLN IVC SCH ×5 (03:13→22:35)
[2021-10-06 03:14] LABS: VBG Ionized Calcium 1.18 mmol/L (1.15-1.35)
[2021-10-06 03:31] LABS: Albumin 4.9 g/dL (3.5-5.7); Albumin/Globulin Ratio 3.1 (1.1-2.2); Basophils # 0.1 K/mcL (0.0-0.2); Basophils % 0.8 %; Bilirubin,Total 1.5 mg/dL (0.3-1.0); Calcium 9.5 mg/dL (8.6-10.3); Eosinophils % 0.1 %; Globulin 1.6 g/dL (2.4-3.5); Hematocrit 27.5 % (37.5-50.1); Hemoglobin 8.8 g/dL (12.9-16.9); Immature Granulocytes % 0.7 % (0-4); Lymphocytes # 1.5 K/mcL (0.6-4.6); Lymphocytes % 17.9 %; Magnesium 2.3 mg/dL (1.6-2.6); Mean Corpuscular Hemoglobin 30.9 pg (28.0-33.3); Mean Corpuscular Volume 96.5 fL (83.0-100.0); Mean Platelet Volume 11.7 fL (9.4-12.4); Phosphorous 2.2 mg/dL (2.7-4.5); Potassium 3.8 mEq/L (3.5-5.1); Red Blood Count 2.85 M/mcL (4.19-5.50); Red Cell Distribution Width 14.3 % (11.5-14.5); Segmented Neutrophils % 69.5 %; Total Protein 6.5 g/dL (6.4-8.9); White Blood Count 8.6 K/mcL (4.3-11.1)
[2021-10-06 03:32] LABS: Platelet Count 84 K/mcL (140-400)
[2021-10-06 04:08] LABS: ABG Base Excess 2 mEq/L (-2 to 3); ABG HCO3 26 mEq/L (21-27); ABG Oxygen Saturation 90 % (95-98); ABG PCO2 37 mmHg (35-45); ABG PH 7.46 pH Units (7.32-7.45); ABG PO2 55 mmHg (85-104); ABG TCO2 27 mEq/L (20-26); Blood Gas VT 500 cc
[2021-10-06] MEDS: *HR* Heparin 5,000 UNIT/ML VIAL SQ SCH ×3 (05:02→21:01)
[2021-10-06] MEDS: niCARdipine 20 MG/200 ML MLS IVC SCH ×5 (08:21→22:39)
[2021-10-06] MEDS: Albumin 25% 25gram/100mL 25 GM/100 ML IV.SOLN IVPB SCH ×3 (08:30→23:05)
[2021-10-06] MEDS: Chlorhexidine Rinse 15 ML MOUTHWASH MM SCH ×2 (08:31→20:01)
[2021-10-06] MEDS: Docusate Oral Soln 100 MG/10 ML UDC GTUBE SCH ×2 (08:31→20:01)
[2021-10-06] MEDS: Piperacillin/Tazobactam 3.375 GM in 0.9 % Sodium Chloride Mini Bag 100 ML IVPB SCH ×3 (08:31→23:05)
[2021-10-06] MEDS: Finasteride 5 MG TABLET PO SCH (08:32)
[2021-10-06] MEDS: Aspirin 81 MG TAB.CHEW PO SCH (08:32)
[2021-10-06] MEDS: Pregabalin 75 MG CAPSULE PO SCH ×2 (08:32→20:01)
[2021-10-06] MEDS: Pantoprazole 40 MG VIAL IVP SCH (08:33)
[2021-10-06] MEDS: Patient Taking Own Medication 1 EACH PO SCH (08:33)
[2021-10-06] MEDS: Fenofibrate 54 MG TABLET PO SCH (08:33)
[2021-10-06 08:34] LABS: Bacteria,Urine Few per hpf (None-Few); Bilirubin,Urine Negative (Negative); Blood,Urine Large (Negative); Clarity,Urine Clear (Clear); Color,Urine Light-Yellow (Yellow); Glucose,Urine (UA) 500 mg/dL (Normal); Hyaline Casts,Urine Many per lpf (None Seen); Ketones,Urine Negative (Negative); Leukocyte Esterase,Urine Trace (Negative); Mucus,Urine Moderate per lpf (None-Few); Nitrite,Urine Negative (Negative); PH,Urine 5.5 pH Units (5.0-8.0); Protein,Urine 30 mg/dL (Neg-Trace); Specific Gravity,Urine 1.014 (1.010-1.025); Squamous Epithelial Cell,Urine Moderate per hpf (None-Few); Urobilinogen,Urine Normal (Normal)
[2021-10-06] MEDS: Artificial Tears SOLN 15 ML BOTTLE BOTH EYES SCH ×4 (08:34→20:10)
[2021-10-06] MEDS ORDERED: Vancomycin 1,750 MG/517.5 ML IV.SOLN IVPB SCH (09:00)
[2021-10-06] MEDS ORDERED: Amiodarone Premix 150 MG/100 ML BAG IVPB ONE (10:30)
[2021-10-06] MEDS: Furosemide 240 MG in 0.9 % Sodium Chloride 96 ML IVC SCH (10:39)
[2021-10-06] MEDS ORDERED: Albumin Human 5% 12.5 GM/250 ML IV.SOLN IVPB ONE (11:03)
[2021-10-06 15:18] LABS: Protein/Creatinine Ratio,Urine 0.52 mg/mg (0.00-0.20); Sodium, Urine 12.6 mEq/L
[2021-10-06] MEDS: DOBUTamine 1,000 MG/250 ML BAG IVC SCH (15:46)
[2021-10-06] MEDS: Acetaminophen IV 1,000 MG/100 ML BAG IVPB SCH ×2 (16:47→21:01)
[2021-10-06] MEDS: Norepinephrine 4 MG/254 ML IV.SOLN IVC SCH ×3 (18:40→23:47)
[2021-10-06] MEDS: Insulin DETEMIR 100 UNIT/ML X5UNITS SUBQ SCH (19:42)
[2021-10-06] MEDS: QUEtiapine Fumarate 25 MG TABLET PO SCH (20:01)
[2021-10-07] MEDS: Dexmedetomidine HCl 400 MCG/100 ML MLS IVC SCH ×8 (02:05→23:45)
[2021-10-07] MEDS: Acetaminophen IV 1,000 MG/100 ML BAG IVPB SCH ×4 (03:10→22:49)
[2021-10-07 03:24] LABS: Basophils # 0.1 K/mcL (0.0-0.2); Basophils % 1.2 %; Eosinophils # 0.1 K/mcL (0.0-0.6); Hematocrit 26.1 % (37.5-50.1); Hemoglobin 8.4 g/dL (12.9-16.9); Immature Granulocytes % 0.4 % (0-4); Lymphocytes # 1.5 K/mcL (0.6-4.6); Lymphocytes % 16.9 %; Mean Corpuscular HGB Conc 32.2 g/dL (31.6-35.5); Mean Corpuscular Hemoglobin 31.1 pg (28.0-33.3); Mean Corpuscular Volume 96.7 fL (83.0-100.0); Mean Platelet Volume 11.3 fL (9.4-12.4); Monocytes # 1.2 K/mcL (0.0-1.3); Monocytes % 13.5 %; Platelet Count 107 K/mcL (140-400); Red Cell Distribution Width 14.6 % (11.5-14.5); White Blood Count 8.9 K/mcL (4.3-11.1)
[2021-10-07 03:48] LABS: Calcium 9.3 mg/dL (8.6-10.3); Magnesium 2.4 mg/dL (1.6-2.6); Phosphorous 2.7 mg/dL (2.7-4.5); Potassium 3.9 mEq/L (3.5-5.1)
[2021-10-07] MEDS: FentaNYL (PF) 1,000 MCG/100 ML IV.SOLN IVC SCH ×4 (04:00→22:00)
[2021-10-07 04:01] LABS: ABG Base Excess 0 mEq/L (-2 to 3); ABG HCO3 24 mEq/L (21-27); ABG Oxygen Saturation 93 % (95-98); ABG PCO2 33 mmHg (35-45); ABG PH 7.47 pH Units (7.32-7.45); ABG PO2 62 mmHg (85-104); ABG TCO2 25 mEq/L (20-26); Blood Gas VT 500 cc
[2021-10-07] MEDS: Insulin LISPRO 300 UNITS/3 ML VIAL SUBQ SCH ×2 (04:04→07:15)
[2021-10-07] MEDS: *HR* Heparin 5,000 UNIT/ML VIAL SQ SCH ×3 (05:02→21:02)
[2021-10-07] MEDS: Amiodarone Premix 360 MG/200 ML BAG IVC SCH (06:21)
[2021-10-07] MEDS: niCARdipine 20 MG/200 ML MLS IVC SCH ×5 (06:49→22:55)
[2021-10-07] MEDS: Albumin 25% 25gram/100mL 25 GM/100 ML IV.SOLN IVPB SCH ×2 (06:50→14:57)
[2021-10-07] MEDS: Piperacillin/Tazobactam 3.375 GM in 0.9 % Sodium Chloride Mini Bag 100 ML IVPB SCH ×2 (06:54→14:59)
[2021-10-07] MEDS: Furosemide 240 MG in 0.9 % Sodium Chloride 96 ML IVC SCH (07:08)
[2021-10-07] MEDS: Finasteride 5 MG TABLET PO SCH (07:13)
[2021-10-07] MEDS: Chlorhexidine Rinse 15 ML MOUTHWASH MM SCH ×2 (07:13→20:53)
[2021-10-07] MEDS: Pantoprazole 40 MG VIAL IVP SCH (07:13)
[2021-10-07] MEDS: Docusate Oral Soln 100 MG/10 ML UDC GTUBE SCH ×2 (07:13→20:56)
[2021-10-07] MEDS: Aspirin 81 MG TAB.CHEW PO SCH (07:13)
[2021-10-07] MEDS: Fenofibrate 54 MG TABLET PO SCH (07:13)
[2021-10-07] MEDS: Pregabalin 75 MG CAPSULE PO SCH ×2 (07:13→20:57)
[2021-10-07] MEDS: Norepinephrine 4 MG/254 ML IV.SOLN IVC SCH ×4 (07:14→20:20)
[2021-10-07] MEDS: Cholecalciferol (D-3) 1,000 UNIT (25MCG) TABLET PO SCH (07:14)
[2021-10-07] MEDS: Artificial Tears SOLN 15 ML BOTTLE BOTH EYES SCH ×4 (07:15→20:47)
[2021-10-07] MEDS: Patient Taking Own Medication 1 EACH PO SCH (07:16)
[2021-10-07] MEDS: Insulin DETEMIR 100 UNIT/ML X5UNITS SUBQ SCH (07:16)
[2021-10-07] MEDS ORDERED: *HR* Metoprolol 5 MG/5 ML VIAL IVP PRN (08:47)
[2021-10-07] MEDS ORDERED: carvediloL 6.25 MG TABLET PO SCH (09:15)
[2021-10-07] MEDS ORDERED: 0.9 % Sodium Chloride 1,000 ML ONE ×2 (10:50→15:54)
[2021-10-07] MEDS: DOBUTamine 1,000 MG/250 ML BAG IVC SCH (13:20)
[2021-10-07] MEDS ORDERED: Lidocaine -MPF 1% 5 ML AMPUL INFILT ONE (13:40)
[2021-10-07] MEDS: MethylPREDNISolone 40 MG/ML VIAL IVP SCH (18:10)
[2021-10-07] MEDS: QUEtiapine Fumarate 25 MG TABLET PO SCH (20:57)
[2021-10-07 21:38] LABS: ABG Base Excess 0 mEq/L (-2 to 3); ABG HCO3 25 mEq/L (21-27); ABG Oxygen Saturation 87 % (95-98); ABG PCO2 44 mmHg (35-45); ABG PH 7.37 pH Units (7.32-7.45); ABG PO2 55 mmHg (85-104); ABG TCO2 27 mEq/L (20-26); Blood Gas Modality ASSIST CONTROL; Blood Gas VT 500 cc
[2021-10-07] MEDS ORDERED: *HR* Midazolam HCl 5 MG/5 ML VIAL IVP ONE ×2 (21:45→21:47)
[2021-10-07] MEDS ORDERED: Furosemide 40 MG/4 ML VIAL IVP ONE (21:58)
[2021-10-08] MEDS ORDERED: MethylPREDNISolone 40 MG/ML VIAL IVP SCH
[2021-10-08] MEDS: MethylPREDNISolone 40 MG/ML VIAL IVP SCH ×3 (00:39→15:44)
[2021-10-08] MEDS: Albumin 25% 25gram/100mL 25 GM/100 ML IV.SOLN IVPB SCH ×3 (00:41→15:45)
[2021-10-08] MEDS: Piperacillin/Tazobactam 3.375 GM in 0.9 % Sodium Chloride Mini Bag 100 ML IVPB SCH ×2 (00:44→08:27)
[2021-10-08] MEDS: Dexmedetomidine HCl 400 MCG/100 ML MLS IVC SCH ×9 (02:40→22:51)
[2021-10-08] MEDS: niCARdipine 20 MG/200 ML MLS IVC SCH ×6 (02:59→23:42)
[2021-10-08] MEDS: Amiodarone Premix 360 MG/200 ML BAG IVC SCH (03:25)
[2021-10-08] MEDS: FentaNYL (PF) 1,000 MCG/100 ML IV.SOLN IVC SCH ×3 (04:00→17:37)
[2021-10-08] MEDS: Acetaminophen IV 1,000 MG/100 ML BAG IVPB SCH ×4 (04:00→22:00)
[2021-10-08 04:29] LABS: VBG Ionized Calcium 1.15 mmol/L (1.15-1.35)
[2021-10-08 04:31] LABS: Basophils % 0.4 %; Eosinophils % 0.2 %; Hemoglobin 8.4 g/dL (12.9-16.9); Immature Granulocytes % 0.4 % (0-4); Lymphocytes # 0.3 K/mcL (0.6-4.6); Lymphocytes % 4.6 %; Mean Corpuscular HGB Conc 32.3 g/dL (31.6-35.5); Mean Corpuscular Hemoglobin 30.8 pg (28.0-33.3); Mean Corpuscular Volume 95.2 fL (83.0-100.0); Mean Platelet Volume 11.9 fL (9.4-12.4); Monocytes # 0.3 K/mcL (0.0-1.3); Monocytes % 4.6 %; Neutrophils # 5.1 K/mcL (1.6-8.9); Platelet Count 113 K/mcL (140-400); Red Blood Count 2.73 M/mcL (4.19-5.50); Red Cell Distribution Width 14.6 % (11.5-14.5); Segmented Neutrophils % 89.8 %; White Blood Count 5.7 K/mcL (4.3-11.1)
[2021-10-08 04:34] LABS: ABG Base Excess 2 mEq/L (-2 to 3); ABG HCO3 27 mEq/L (21-27); ABG Oxygen Saturation 90 % (95-98); ABG PCO2 43 mmHg (35-45); ABG PH 7.41 pH Units (7.32-7.45); ABG PO2 58 mmHg (85-104); ABG TCO2 29 mEq/L (20-26); Blood Gas Modality ASSIST CONTROL; Blood Gas VT 500 cc
[2021-10-08 04:53] LABS: Albumin 4.9 g/dL (3.5-5.7); Albumin/Globulin Ratio 2.9 (1.1-2.2); Bilirubin,Direct 0.7 mg/dL (0.0-0.2); Bilirubin,Indirect 0.7 mg/dL (0.0-1.0); Bilirubin,Total 1.4 mg/dL (0.3-1.0); Calcium 9.4 mg/dL (8.6-10.3); Globulin 1.7 g/dL (2.4-3.5); Magnesium 2.5 mg/dL (1.6-2.6); Phosphorous 2.5 mg/dL (2.7-4.5); Potassium 4.1 mEq/L (3.5-5.1); Total Protein 6.6 g/dL (6.4-8.9)
[2021-10-08] MEDS: *HR* Heparin 5,000 UNIT/ML VIAL SQ SCH ×3 (05:59→21:59)
[2021-10-08] MEDS: Norepinephrine 4 MG/254 ML IV.SOLN IVC SCH (06:09)
[2021-10-08 07:24] LABS: ABG Base Excess -3 mEq/L (-2 to 3); ABG Chloride 105 mEq/L (98-107); ABG Glucose 239 mg/dL (60-95); ABG HCO3 22 mEq/L (21-27); ABG Ionized Calcium 1.22 mmol/L (1.15-1.35); ABG Oxygen Saturation 98 % (95-98); ABG PCO2 37 mmHg (35-45); ABG PH 7.38 pH Units (7.32-7.45); ABG PO2 99 mmHg (85-104); ABG TCO2 23 mEq/L (20-26)
[2021-10-08] MEDS: Artificial Tears SOLN 15 ML BOTTLE BOTH EYES SCH ×4 (08:29→21:54)
[2021-10-08] MEDS: Aspirin 81 MG TAB.CHEW PO SCH (08:30)
[2021-10-08] MEDS: Cholecalciferol (D-3) 1,000 UNIT (25MCG) TABLET PO SCH (08:30)
[2021-10-08] MEDS: Docusate Oral Soln 100 MG/10 ML UDC GTUBE SCH ×2 (08:30→20:46)
[2021-10-08] MEDS: Chlorhexidine Rinse 15 ML MOUTHWASH MM SCH ×2 (08:30→20:46)
[2021-10-08] MEDS: Fenofibrate 54 MG TABLET PO SCH (08:30)
[2021-10-08] MEDS: Finasteride 5 MG TABLET PO SCH (08:30)
[2021-10-08] MEDS: Pregabalin 75 MG CAPSULE PO SCH (08:30)
[2021-10-08] MEDS: Pantoprazole 40 MG VIAL IVP SCH (08:31)
[2021-10-08] MEDS: Patient Taking Own Medication 1 EACH PO SCH (09:05)
[2021-10-08] MEDS: Ertapenem 1,000 MG in 0.9 % Sodium Chloride Mini Bag 100 ML IVPB SCH (09:08)
[2021-10-08] MEDS ORDERED: Albumin 25% 25gram/100mL 25 GM/100 ML IV.SOLN IVPB ONE (09:58)
[2021-10-08] MEDS ORDERED: Furosemide 40 MG/4 ML VIAL IVP ONE ×2 (10:45→12:02)
[2021-10-08 10:54] LABS: Appearance of Body Fluid Hazy (Clear); Volume of Body Fluid 18 mL
[2021-10-08] MEDS ORDERED: Furosemide 20 MG/2 ML VIAL IVP SCH (12:00)
[2021-10-08] MEDS: Furosemide 240 MG in 0.9 % Sodium Chloride 96 ML IVC SCH (13:28)
[2021-10-08] MEDS ORDERED: Insulin Regular, Human 100 UNIT/ML IV PRN (15:01)
[2021-10-08] MEDS ORDERED: Artificial Tears SOLN 15 ML BOTTLE BOTH EYES PRN (15:15)
[2021-10-08 18:48] LABS: ABG Base Excess 2 mEq/L (-2 to 3); ABG HCO3 27 mEq/L (21-27); ABG Oxygen Saturation 93 % (95-98); ABG PCO2 43 mmHg (35-45); ABG PH 7.41 pH Units (7.32-7.45); ABG PO2 67 mmHg (85-104); ABG TCO2 28 mEq/L (20-26); Blood Gas Modality ASSIST CONTROL; Blood Gas VT 500 cc
[2021-10-08] MEDS: QUEtiapine Fumarate 25 MG TABLET PO SCH (20:44)
[2021-10-08] MEDS: DOBUTamine 1,000 MG/250 ML BAG IVC SCH (22:45)
[2021-10-09] MEDS: Albumin 25% 25gram/100mL 25 GM/100 ML IV.SOLN IVPB SCH ×4 (00:40→23:54)
[2021-10-09] MEDS: FentaNYL (PF) 1,000 MCG/100 ML IV.SOLN IVC SCH ×5 (01:25→22:51)
[2021-10-09] MEDS: Dexmedetomidine HCl 400 MCG/100 ML MLS IVC SCH ×9 (01:27→22:08)
[2021-10-09] MEDS: Amiodarone Premix 360 MG/200 ML BAG IVC SCH ×2 (03:05→18:23)
[2021-10-09 04:37] LABS: ABG Base Excess 2 mEq/L (-2 to 3); ABG HCO3 27 mEq/L (21-27); ABG Oxygen Saturation 95 % (95-98); ABG PCO2 40 mmHg (35-45); ABG PH 7.43 pH Units (7.32-7.45); ABG PO2 73 mmHg (85-104); ABG TCO2 28 mEq/L (20-26); Blood Gas Modality AF; Blood Gas VT 500 cc
[2021-10-09] MEDS: niCARdipine 20 MG/200 ML MLS IVC SCH ×4 (04:37→17:05)
[2021-10-09] MEDS: Acetaminophen IV 1,000 MG/100 ML BAG IVPB SCH ×3 (04:38→17:06)
[2021-10-09 04:45] LABS: VBG Ionized Calcium 1.19 mmol/L (1.15-1.35)
[2021-10-09 05:18] LABS: Basophils % 0.1 %; Hematocrit 27.1 % (37.5-50.1); Hemoglobin 8.5 g/dL (12.9-16.9); Immature Granulocytes % 0.4 % (0-4); Lymphocytes # 0.4 K/mcL (0.6-4.6); Lymphocytes % 5.9 %; Mean Corpuscular HGB Conc 31.4 g/dL (31.6-35.5); Mean Corpuscular Hemoglobin 30.2 pg (28.0-33.3); Mean Corpuscular Volume 96.4 fL (83.0-100.0); Mean Platelet Volume 12.1 fL (9.4-12.4); Monocytes # 0.6 K/mcL (0.0-1.3); Monocytes % 8.6 %; Neutrophils # 6.3 K/mcL (1.6-8.9); Nucleated Red Blood Cells 0.3 /100 WBC (0); Platelet Count 167 K/mcL (140-400); Red Blood Count 2.81 M/mcL (4.19-5.50); White Blood Count 7.4 K/mcL (4.3-11.1)
[2021-10-09 05:30] LABS: Magnesium 2.6 mg/dL (1.6-2.6); Phosphorous 2.2 mg/dL (2.7-4.5)
[2021-10-09] MEDS: *HR* Heparin 5,000 UNIT/ML VIAL SQ SCH ×3 (05:52→22:06)
[2021-10-09 05:58] LABS: Calcium 9.6 mg/dL (8.6-10.3); Potassium 3.8 mEq/L (3.5-5.1)
[2021-10-09] MEDS: Chlorhexidine Rinse 15 ML MOUTHWASH MM SCH ×2 (08:55→20:07)
[2021-10-09] MEDS: Fenofibrate 54 MG TABLET PO SCH (08:55)
[2021-10-09] MEDS: Docusate Oral Soln 100 MG/10 ML UDC GTUBE SCH ×2 (08:55→20:07)
[2021-10-09] MEDS: Finasteride 5 MG TABLET PO SCH (08:55)
[2021-10-09] MEDS: Cholecalciferol (D-3) 1,000 UNIT (25MCG) TABLET PO SCH (08:56)
[2021-10-09] MEDS: Ertapenem 1,000 MG in 0.9 % Sodium Chloride Mini Bag 100 ML IVPB SCH (08:56)
[2021-10-09] MEDS: Artificial Tears SOLN 15 ML BOTTLE BOTH EYES SCH ×4 (08:58→20:07)
[2021-10-09] MEDS: Aspirin 81 MG TAB.CHEW PO SCH (08:59)
[2021-10-09] MEDS: Pantoprazole 40 MG VIAL IVP SCH (09:01)
[2021-10-09] MEDS: *HR* LORazepam 2 MG/ML VIAL IVP PRN (15:23)
[2021-10-09] MEDS: QUEtiapine Fumarate 25 MG TABLET PO SCH (20:07)
[2021-10-09 21:34] LABS: VBG Ionized Calcium 1.18 mmol/L (1.15-1.35)
[2021-10-09 21:42] LABS: Calcium 9.5 mg/dL (8.6-10.3); Magnesium 2.5 mg/dL (1.6-2.6); Potassium 3.7 mEq/L (3.5-5.1)
[2021-10-09] MEDS: Norepinephrine 4 MG/254 ML IV.SOLN IVC SCH (23:53)
[2021-10-10] MEDS: Dexmedetomidine HCl 400 MCG/100 ML MLS IVC SCH ×10 (00:21→21:48)
[2021-10-10] MEDS: Acetaminophen IV 1,000 MG/100 ML BAG IVPB SCH ×4 (02:40→15:28)
[2021-10-10 03:36] LABS: Hematocrit 26.2 % (37.5-50.1); Hemoglobin 8.1 g/dL (12.9-16.9); Immature Granulocytes % 0.4 % (0-4); Lymphocytes % 14.2 %; Mean Corpuscular HGB Conc 30.9 g/dL (31.6-35.5); Mean Corpuscular Hemoglobin 29.8 pg (28.0-33.3); Mean Corpuscular Volume 96.3 fL (83.0-100.0); Monocytes # 0.9 K/mcL (0.0-1.3); Neutrophils # 4.9 K/mcL (1.6-8.9); Nucleated Red Blood Cells 0.3 /100 WBC (0); Platelet Count 186 K/mcL (140-400); Red Blood Count 2.72 M/mcL (4.19-5.50); Red Cell Distribution Width 14.2 % (11.5-14.5); Segmented Neutrophils % 72.4 %; White Blood Count 6.7 K/mcL (4.3-11.1)
[2021-10-10 03:51] LABS: Calcium 9.6 mg/dL (8.6-10.3); Potassium 3.8 mEq/L (3.5-5.1)
[2021-10-10] MEDS: FentaNYL (PF) 1,000 MCG/100 ML IV.SOLN IVC SCH ×5 (04:21→21:49)
[2021-10-10 04:23] LABS: ABG Base Excess 4 mEq/L (-2 to 3); ABG HCO3 29 mEq/L (21-27); ABG Oxygen Saturation 96 % (95-98); ABG PCO2 44 mmHg (35-45); ABG PH 7.43 pH Units (7.32-7.45); ABG PO2 79 mmHg (85-104); ABG TCO2 30 mEq/L (20-26); Blood Gas VT 500 cc
[2021-10-10] MEDS: Amiodarone Premix 360 MG/200 ML BAG IVC SCH (05:16)
[2021-10-10] MEDS: *HR* Heparin 5,000 UNIT/ML VIAL SQ SCH ×3 (05:17→21:15)
[2021-10-10] MEDS: Norepinephrine 4 MG/254 ML IV.SOLN IVC SCH ×5 (07:19→17:39)
[2021-10-10] MEDS: Furosemide 240 MG in 0.9 % Sodium Chloride 96 ML IVC SCH ×3 (07:20→13:01)
[2021-10-10] MEDS: DOBUTamine 1,000 MG/250 ML BAG IVC SCH (07:21)
[2021-10-10] MEDS: niCARdipine 20 MG/200 ML MLS IVC SCH ×4 (07:21→12:13)
[2021-10-10] MEDS: Albumin 25% 25gram/100mL 25 GM/100 ML IV.SOLN IVPB SCH ×2 (07:34→15:58)
[2021-10-10] MEDS: Ertapenem 1,000 MG in 0.9 % Sodium Chloride Mini Bag 100 ML IVPB SCH (07:35)
[2021-10-10] MEDS: Docusate Oral Soln 100 MG/10 ML UDC GTUBE SCH ×2 (07:35→21:16)
[2021-10-10] MEDS: Pantoprazole 40 MG VIAL IVP SCH (07:35)
[2021-10-10] MEDS: Chlorhexidine Rinse 15 ML MOUTHWASH MM SCH ×2 (07:35→21:15)
[2021-10-10] MEDS: Fenofibrate 54 MG TABLET PO SCH (07:36)
[2021-10-10] MEDS: Aspirin 81 MG TAB.CHEW PO SCH (07:37)
[2021-10-10] MEDS: Cholecalciferol (D-3) 1,000 UNIT (25MCG) TABLET PO SCH (07:37)
[2021-10-10] MEDS: Finasteride 5 MG TABLET PO SCH (07:37)
[2021-10-10] MEDS: Artificial Tears SOLN 15 ML BOTTLE BOTH EYES SCH ×4 (07:38→21:16)
[2021-10-10 08:21] LABS: Alpha 2 Globulin (PEP) 0.82 g/dL (0.48-1.05); Beta Globulin (PEP) 0.47 g/dL (0.48-1.10)
[2021-10-10] MEDS: *HR* LORazepam 2 MG/ML VIAL IVP PRN (10:28)
[2021-10-10 11:10] LABS: IFE Reflexed IFE Done; Immunoglobulin A 114 mg/dL (68-408); Immunoglobulin G 297 mg/dL (768-1632); Immunoglobulin M 18 mg/dL (35-263)
[2021-10-10] MEDS: *HR* Amiodarone 200 MG TABLET PO SCH (16:48)
[2021-10-10] MEDS: Nystatin SUSP 5 ML UD.LIQ PO SCH ×2 (17:35→21:00)
[2021-10-10] MEDS: QUEtiapine Fumarate 25 MG TABLET PO SCH (21:14)
[2021-10-11] MEDS: niCARdipine 20 MG/200 ML MLS IVC SCH ×6 (00:10→17:07)
[2021-10-11] MEDS: Albumin 25% 25gram/100mL 25 GM/100 ML IV.SOLN IVPB SCH ×3 (00:22→16:41)
[2021-10-11] MEDS: Dexmedetomidine HCl 400 MCG/100 ML MLS IVC SCH ×10 (00:31→22:00)
[2021-10-11] MEDS: FentaNYL (PF) 1,000 MCG/100 ML IV.SOLN IVC SCH ×5 (02:52→22:26)
[2021-10-11 04:15] LABS: ABG Base Excess 7 mEq/L (-2 to 3); ABG HCO3 33 mEq/L (21-27); ABG Oxygen Saturation 95 % (95-98); ABG PCO2 51 mmHg (35-45); ABG PH 7.42 pH Units (7.32-7.45); ABG PO2 74 mmHg (85-104); ABG TCO2 34 mEq/L (20-26); Blood Gas VT 500 cc
[2021-10-11 04:50] LABS: INR 1.4; Prothrombin Time 15.8 Seconds (9.4-12.1)
[2021-10-11 04:51] LABS: Activated Partial Thrombo Time 26.3 Seconds (26.0-36.0)
[2021-10-11 05:09] LABS: Calcium 10.1 mg/dL (8.6-10.3); Potassium 3.6 mEq/L (3.5-5.1)
[2021-10-11] MEDS ORDERED: Potassium Chloride 40 MEQ/200 ML BAG IVPB PRN (05:17)
[2021-10-11] MEDS: *HR* Heparin 5,000 UNIT/ML VIAL SQ SCH ×3 (05:24→21:19)
[2021-10-11 06:19] LABS: Basophils % 0.4 %; Eosinophils # 0.2 K/mcL (0.0-0.6); Eosinophils % 2.6 %; Hematocrit 28.6 % (37.5-50.1); Immature Granulocytes % 0.3 % (0-4); Lymphocytes # 1.2 K/mcL (0.6-4.6); Lymphocytes % 16.5 %; Mean Corpuscular HGB Conc 31.5 g/dL (31.6-35.5); Mean Corpuscular Hemoglobin 30.7 pg (28.0-33.3); Mean Corpuscular Volume 97.6 fL (83.0-100.0); Mean Platelet Volume 10.6 fL (9.4-12.4); Monocytes # 0.9 K/mcL (0.0-1.3); Monocytes % 12.4 %; Neutrophils # 4.9 K/mcL (1.6-8.9); Platelet Count 212 K/mcL (140-400); Red Blood Count 2.93 M/mcL (4.19-5.50); Red Cell Distribution Width 14.5 % (11.5-14.5); Segmented Neutrophils % 67.8 %; White Blood Count 7.3 K/mcL (4.3-11.1)
[2021-10-11] MEDS: Norepinephrine 4 MG/254 ML IV.SOLN IVC SCH ×4 (07:34→17:07)
[2021-10-11] MEDS: Ertapenem 1,000 MG in 0.9 % Sodium Chloride Mini Bag 100 ML IVPB SCH (08:00)
[2021-10-11] MEDS: Docusate Oral Soln 100 MG/10 ML UDC GTUBE SCH ×2 (08:01→21:19)
[2021-10-11] MEDS: *HR* Amiodarone 200 MG TABLET PO SCH ×2 (08:01→21:00)
[2021-10-11] MEDS: Fenofibrate 54 MG TABLET PO SCH (08:01)
[2021-10-11] MEDS: Chlorhexidine Rinse 15 ML MOUTHWASH MM SCH ×2 (08:01→21:20)
[2021-10-11] MEDS: Nystatin SUSP 5 ML UD.LIQ PO SCH ×4 (08:01→21:19)
[2021-10-11] MEDS: Pantoprazole 40 MG VIAL IVP SCH (08:01)
[2021-10-11 08:02] LABS: Magnesium 2.1 mg/dL (1.6-2.6); Phosphorous 2.9 mg/dL (2.7-4.5)
[2021-10-11] MEDS: Aspirin 81 MG TAB.CHEW PO SCH (08:02)
[2021-10-11] MEDS: Artificial Tears SOLN 15 ML BOTTLE BOTH EYES SCH ×4 (08:02→21:29)
[2021-10-11] MEDS: Cholecalciferol (D-3) 1,000 UNIT (25MCG) TABLET PO SCH (08:02)
[2021-10-11] MEDS: Finasteride 5 MG TABLET PO SCH (08:02)
[2021-10-11 10:01] LABS: Bilirubin,Urine Negative (Negative); Blood,Urine Moderate (Negative); Clarity,Urine Clear (Clear); Color,Urine Light-Yellow (Yellow); Glucose,Urine (UA) Normal (Normal); Hyaline Casts,Urine Few per lpf (None Seen); Ketones,Urine Negative (Negative); Leukocyte Esterase,Urine Small (Negative); Mucus,Urine Few per lpf (None-Few); Nitrite,Urine Negative (Negative); PH,Urine 5.5 pH Units (5.0-8.0); Protein,Urine Negative (Neg-Trace); RBC,Urine 15-30 per hpf (0-3); Specific Gravity,Urine 1.012 (1.010-1.025); Squamous Epithelial Cell,Urine Few per hpf (None-Few); Urobilinogen,Urine Normal (Normal)
[2021-10-11 15:40] LABS: VBG Ionized Calcium 1.23 mmol/L (1.15-1.35)
[2021-10-11 15:45] LABS: Calcium 10.2 mg/dL (8.6-10.3); Magnesium 2.2 mg/dL (1.6-2.6); Phosphorous 3.5 mg/dL (2.7-4.5); Potassium 3.9 mEq/L (3.5-5.1)
[2021-10-11] MEDS ORDERED: Potassium Chloride Elixir 20 MEQ/15 ML UDC GTUBE ONE (16:06)
[2021-10-11] MEDS: Phenylephrine 20 MG in 0.9 % Sodium Chloride 250 ML IVC SCH (17:06)
[2021-10-11] MEDS: DOBUTamine 1,000 MG/250 ML BAG IVC SCH (17:07)
[2021-10-11] MEDS: Furosemide 240 MG in 0.9 % Sodium Chloride 96 ML IVC SCH (18:41)
[2021-10-11] MEDS: QUEtiapine Fumarate 25 MG TABLET PO SCH (21:19)
[2021-10-11 22:35] LABS: Calcium 10.4 mg/dL (8.6-10.3); Potassium 4.1 mEq/L (3.5-5.1)
[2021-10-12] MEDS: Dexmedetomidine HCl 400 MCG/100 ML MLS IVC SCH ×11 (00:21→22:54)
[2021-10-12] MEDS: Norepinephrine 4 MG/254 ML IV.SOLN IVC SCH ×5 (02:39→23:34)
[2021-10-12] MEDS: FentaNYL (PF) 1,000 MCG/100 ML IV.SOLN IVC SCH ×3 (03:08→14:42)
[2021-10-12 04:20] LABS: VBG Ionized Calcium 1.22 mmol/L (1.15-1.35)
[2021-10-12 04:21] LABS: Basophils % 0.3 %; Eosinophils # 0.5 K/mcL (0.0-0.6); Eosinophils % 6.6 %; Hematocrit 27.9 % (37.5-50.1); Hemoglobin 8.7 g/dL (12.9-16.9); Immature Granulocytes % 0.3 % (0-4); Lymphocytes % 14.9 %; Mean Corpuscular HGB Conc 31.2 g/dL (31.6-35.5); Mean Corpuscular Hemoglobin 30.6 pg (28.0-33.3); Mean Corpuscular Volume 98.2 fL (83.0-100.0); Mean Platelet Volume 10.6 fL (9.4-12.4); Monocytes # 0.9 K/mcL (0.0-1.3); Monocytes % 12.5 %; Neutrophils # 4.4 K/mcL (1.6-8.9); Platelet Count 230 K/mcL (140-400); Red Blood Count 2.84 M/mcL (4.19-5.50); Red Cell Distribution Width 14.5 % (11.5-14.5); Segmented Neutrophils % 65.4 %; White Blood Count 6.8 K/mcL (4.3-11.1)
[2021-10-12 04:22] LABS: ABG Base Excess 11 mEq/L (-2 to 3); ABG HCO3 37 mEq/L (21-27); ABG Oxygen Saturation 94 % (95-98); ABG PCO2 53 mmHg (35-45); ABG PH 7.45 pH Units (7.32-7.45); ABG PO2 70 mmHg (85-104); ABG TCO2 38 mEq/L (20-26); Blood Gas VT 500 cc
[2021-10-12 04:35] LABS: Calcium 10.7 mg/dL (8.6-10.3); Potassium 4.1 mEq/L (3.5-5.1)
[2021-10-12 04:37] LABS: Albumin 5.1 g/dL (3.5-5.7); Albumin/Globulin Ratio 3.2 (1.1-2.2); Bilirubin,Direct 0.5 mg/dL (0.0-0.2); Bilirubin,Indirect 0.9 mg/dL (0.0-1.0); Bilirubin,Total 1.4 mg/dL (0.3-1.0); Calcium 10.4 mg/dL (8.6-10.3); Globulin 1.6 g/dL (2.4-3.5); Magnesium 2.4 mg/dL (1.6-2.6); Phosphorous 3.1 mg/dL (2.7-4.5); Potassium 4.1 mEq/L (3.5-5.1); Total Protein 6.7 g/dL (6.4-8.9)
[2021-10-12] MEDS: niCARdipine 20 MG/200 ML MLS IVC SCH ×6 (04:42→23:18)
[2021-10-12] MEDS: *HR* Heparin 5,000 UNIT/ML VIAL SQ SCH ×3 (05:35→21:35)
[2021-10-12] MEDS: Docusate Oral Soln 100 MG/10 ML UDC GTUBE SCH ×2 (08:23→20:36)
[2021-10-12] MEDS: Chlorhexidine Rinse 15 ML MOUTHWASH MM SCH ×2 (08:23→20:36)
[2021-10-12] MEDS: Pantoprazole 40 MG VIAL IVP SCH (08:23)
[2021-10-12] MEDS: Ertapenem 1,000 MG in 0.9 % Sodium Chloride Mini Bag 100 ML IVPB SCH (08:28)
[2021-10-12] MEDS: Artificial Tears SOLN 15 ML BOTTLE BOTH EYES SCH ×4 (08:33→23:35)
[2021-10-12] MEDS: Finasteride 5 MG TABLET PO SCH (08:34)
[2021-10-12] MEDS: Fenofibrate 54 MG TABLET PO SCH (08:34)
[2021-10-12] MEDS: Cholecalciferol (D-3) 1,000 UNIT (25MCG) TABLET PO SCH (08:35)
[2021-10-12] MEDS: Pregabalin 75 MG CAPSULE GTUBE SCH ×2 (08:36→20:37)
[2021-10-12] MEDS: Albumin 25% 25gram/100mL 25 GM/100 ML IV.SOLN IVPB SCH ×4 (08:36→23:02)
[2021-10-12] MEDS: Aspirin 81 MG TAB.CHEW PO SCH (08:36)
[2021-10-12] MEDS: Nystatin SUSP 5 ML UD.LIQ PO SCH ×4 (08:37→20:36)
[2021-10-12] MEDS: *HR* Amiodarone 200 MG TABLET PO SCH ×2 (08:38→20:37)
[2021-10-12] MEDS ORDERED: *HR* Midazolam HCl 5 MG/5 ML VIAL IVP ONE ×2 (08:59→09:04)
[2021-10-12 11:02] LABS: Adenovirus Not Detected (Not Detect); Bordetella Pertussis Not Detected (Not Detect); Chlamydophila pneumoniae Not Detected (Not Detect); Coronavirus 229E Not Detected (Not Detect); Coronavirus HKU1 Not Detected (Not Detect); Coronavirus NL63 Not Detected (Not Detect); Coronavirus OC43 Not Detected (Not Detect); Human Metapneumovirus Not Detected (Not Detect); Human Rhinovirus/Enterovirus Not Detected (Not Detect); Influenza A Subtype 2009 H1 Not Detected (Not Detect); Influenza B Not Detected (Not Detect); Mycoplasma pneumoniae Not Detected (Not Detect); Parainfluenza Virus 1 Not Detected (Not Detect); Parainfluenza Virus 2 Not Detected (Not Detect); Parainfluenza Virus 3 Not Detected (Not Detect); Parainfluenza Virus 4 Not Detected (Not Detect); Respiratory Syncytial Virus Not Detected (Not Detect); SARS-CoV-2 Not Detected (Not Detect)
[2021-10-12] MEDS: Phenylephrine 20 MG in 0.9 % Sodium Chloride 250 ML IVC SCH (14:42)
[2021-10-12 14:46] LABS: Appearance of Body Fluid Cloudy (Clear); Volume of Body Fluid 16 mL
[2021-10-12] MEDS: DOBUTamine 1,000 MG/250 ML BAG IVC SCH (15:24)
[2021-10-12] MEDS: QUEtiapine Fumarate 25 MG TABLET PO SCH (20:36)
[2021-10-12] MEDS ORDERED: *HR* Midazolam HCl 2 MG/2 ML VIAL IVP PRN (22:14)
[2021-10-12] MEDS ORDERED: Vancomycin 2,000 MG/520 ML IV.SOLN IVPB ONE (22:34)
[2021-10-12] MEDS ORDERED: Dexmedetomidine HCl 400 MCG/100 ML MLS IVC ONE (22:51)
[2021-10-12] MEDS ORDERED: Vancomycin 1,750 MG in 0.9 % Sodium Chloride 250 ML IVPB SCH (23:00)
[2021-10-13] MEDS ORDERED: Dexmedetomidine HCl 400 MCG/100 ML MLS IVC ONE (00:33)
[2021-10-13] MEDS: Dexmedetomidine HCl 400 MCG/100 ML MLS IVC SCH (00:55)
[2021-10-13] MEDS: Norepinephrine 4 MG/254 ML IV.SOLN IVC SCH ×4 (01:32→14:52)
[2021-10-13] MEDS: niCARdipine 20 MG/200 ML MLS IVC SCH ×5 (03:41→16:15)
[2021-10-13 03:43] LABS: ABG Base Excess 9 mEq/L (-2 to 3); ABG HCO3 34 mEq/L (21-27); ABG Oxygen Saturation 92 % (95-98); ABG PCO2 45 mmHg (35-45); ABG PH 7.48 pH Units (7.32-7.45); ABG PO2 59 mmHg (85-104); ABG TCO2 35 mEq/L (20-26); Blood Gas VT 500 cc
[2021-10-13 04:30] LABS: Basophils % 0.3 %; Eosinophils # 0.6 K/mcL (0.0-0.6); Eosinophils % 5.9 %; Hematocrit 28.3 % (37.5-50.1); Hemoglobin 8.7 g/dL (12.9-16.9); Immature Granulocytes % 0.6 % (0-4); Lymphocytes # 1.4 K/mcL (0.6-4.6); Lymphocytes % 13.4 %; Mean Corpuscular HGB Conc 30.7 g/dL (31.6-35.5); Mean Corpuscular Hemoglobin 30.3 pg (28.0-33.3); Mean Corpuscular Volume 98.6 fL (83.0-100.0); Mean Platelet Volume 10.6 fL (9.4-12.4); Monocytes # 1.3 K/mcL (0.0-1.3); Monocytes % 12.7 %; Platelet Count 286 K/mcL (140-400); Red Blood Count 2.87 M/mcL (4.19-5.50); Red Cell Distribution Width 14.6 % (11.5-14.5); Segmented Neutrophils % 67.1 %
[2021-10-13 04:32] LABS: White Blood Count 10.4 K/mcL (4.3-11.1)
[2021-10-13 04:37] LABS: VBG Ionized Calcium 1.22 mmol/L (1.15-1.35)
[2021-10-13 04:49] LABS: Albumin/Globulin Ratio 2.9 (1.1-2.2); Bilirubin,Direct 0.8 mg/dL (0.0-0.2); Bilirubin,Total 1.8 mg/dL (0.3-1.0); Calcium 10.5 mg/dL (8.6-10.3); Globulin 1.7 g/dL (2.4-3.5); Magnesium 2.2 mg/dL (1.6-2.6); Phosphorous 2.3 mg/dL (2.7-4.5); Potassium 3.5 mEq/L (3.5-5.1); Total Protein 6.7 g/dL (6.4-8.9)
[2021-10-13] MEDS: *HR* Heparin 5,000 UNIT/ML VIAL SQ SCH ×3 (05:09→21:42)
[2021-10-13] MEDS: FentaNYL (PF) 1,000 MCG/100 ML IV.SOLN IVC SCH (05:49)
[2021-10-13] MEDS: Docusate Oral Soln 100 MG/10 ML UDC GTUBE SCH ×2 (08:14→21:37)
[2021-10-13] MEDS: Fenofibrate 54 MG TABLET PO SCH (08:14)
[2021-10-13] MEDS: Aspirin 81 MG TAB.CHEW PO SCH (08:14)
[2021-10-13] MEDS: Ertapenem 1,000 MG in 0.9 % Sodium Chloride Mini Bag 100 ML IVPB SCH (08:15)
[2021-10-13] MEDS: Albumin 25% 25gram/100mL 25 GM/100 ML IV.SOLN IVPB SCH ×2 (08:15→16:14)
[2021-10-13] MEDS: Pregabalin 75 MG CAPSULE GTUBE SCH ×2 (08:15→21:37)
[2021-10-13] MEDS: *HR* Amiodarone 200 MG TABLET PO SCH (08:15)
[2021-10-13] MEDS: Finasteride 5 MG TABLET PO SCH (08:15)
[2021-10-13] MEDS: Cholecalciferol (D-3) 1,000 UNIT (25MCG) TABLET PO SCH (08:15)
[2021-10-13] MEDS: Nystatin SUSP 5 ML UD.LIQ PO SCH ×4 (08:16→21:38)
[2021-10-13] MEDS: Artificial Tears SOLN 15 ML BOTTLE BOTH EYES SCH ×4 (08:16→21:00)
[2021-10-13] MEDS: Pantoprazole 40 MG VIAL IVP SCH (08:16)
[2021-10-13] MEDS: Chlorhexidine Rinse 15 ML MOUTHWASH MM SCH ×2 (08:16→21:42)
[2021-10-13] MEDS: *HR* Metoprolol 5 MG/5 ML VIAL IVP PRN ×2 (08:44→20:44)
[2021-10-13] MEDS ORDERED: Potassium Phosphate 44 MEQ in 0.9 % Sodium Chloride 250 ML IVPB ONE (11:14)
[2021-10-13] MEDS: Insulin LISPRO 300 UNITS/3 ML VIAL SUBQ SCH ×3 (11:44→20:00)
[2021-10-13] MEDS: Phenylephrine 20 MG in 0.9 % Sodium Chloride 250 ML IVC SCH (14:52)
[2021-10-13] MEDS: DOBUTamine 1,000 MG/250 ML BAG IVC SCH (14:52)
[2021-10-13] MEDS ORDERED: *HR* Metoprolol 5 MG/5 ML VIAL IVP ONE (15:22)
[2021-10-13] MEDS ORDERED: Amiodarone Premix 360 MG/200 ML BAG IVC SCH (16:10)
[2021-10-13 17:42] LABS: ABG Base Excess 7 mEq/L (-2 to 3); ABG HCO3 31 mEq/L (21-27); ABG Oxygen Saturation 96 % (95-98); ABG PCO2 40 mmHg (35-45); ABG PH 7.49 pH Units (7.32-7.45); ABG PO2 74 mmHg (85-104); ABG TCO2 32 mEq/L (20-26); Blood Gas Modality ASSIST CONTROL; Blood Gas VT 500 cc
[2021-10-13] MEDS ORDERED: *HR* Metoprolol 5 MG/5 ML VIAL IVP SCH (18:00)
[2021-10-13] MEDS ORDERED: *HR* Dextrose 50 % in Water (Syg) 50 ML SYRINGE IVP PRN (20:24)
[2021-10-13] MEDS ORDERED: Dextrose 4 GM Chewable Tablets PO PRN ×2 (20:24)
[2021-10-13] MEDS ORDERED: D5% in Water 1,000 ML IVC PRN (20:24)
[2021-10-13] MEDS ORDERED: Naloxone 0.4 MG/ML INJ IVP PRN (20:26)
[2021-10-13] MEDS: QUEtiapine Fumarate 25 MG TABLET PO SCH (21:40)
[2021-10-13] MEDS ORDERED: Acetaminophen IV 1,000 MG/100 ML BAG IVPB ONE (23:48)
[2021-10-13] MEDS ORDERED: Potassium Chloride 40 MEQ/200 ML BAG IVPB PRN (23:50)
[2021-10-14] MEDS: Albumin 25% 25gram/100mL 25 GM/100 ML IV.SOLN IVPB SCH ×2 (00:13→07:07)
[2021-10-14] MEDS: Amiodarone Premix 360 MG/200 ML BAG IVC SCH ×5 (00:33→19:22)
[2021-10-14] MEDS: Norepinephrine 4 MG/254 ML IV.SOLN IVC SCH ×4 (00:36→09:56)
[2021-10-14] MEDS: niCARdipine 20 MG/200 ML MLS IVC SCH ×6 (00:37→16:23)
[2021-10-14] MEDS ORDERED: *HR* Metoprolol 5 MG/5 ML VIAL IVP ONE (01:07)
[2021-10-14] MEDS: Insulin LISPRO 300 UNITS/3 ML VIAL SUBQ SCH ×6 (01:10→20:24)
[2021-10-14] MEDS: *HR* Metoprolol 5 MG/5 ML VIAL IVP PRN (03:02)
[2021-10-14 03:08] LABS: VBG Ionized Calcium 1.24 mmol/L (1.15-1.35)
[2021-10-14 03:23] LABS: ABG Base Excess 9 mEq/L (-2 to 3); ABG HCO3 34 mEq/L (21-27); ABG Oxygen Saturation 88 % (95-98); ABG PCO2 50 mmHg (35-45); ABG PH 7.44 pH Units (7.32-7.45); ABG PO2 54 mmHg (85-104); ABG TCO2 35 mEq/L (20-26); Blood Gas VT 450 cc
[2021-10-14 03:27] LABS: Basophils # 0.1 K/mcL (0.0-0.2); Basophils % 0.4 %; Eosinophils # 0.1 K/mcL (0.0-0.6); Eosinophils % 0.5 %; Hematocrit 29.7 % (37.5-50.1); Hemoglobin 8.9 g/dL (12.9-16.9); Immature Granulocytes % 0.7 % (0-4); Lymphocytes # 1.1 K/mcL (0.6-4.6); Lymphocytes % 7.9 %; Mean Corpuscular Hemoglobin 30.3 pg (28.0-33.3); Monocytes # 1.9 K/mcL (0.0-1.3); Monocytes % 13.6 %; Neutrophils # 10.7 K/mcL (1.6-8.9); Platelet Count 389 K/mcL (140-400); Red Blood Count 2.94 M/mcL (4.19-5.50); Red Cell Distribution Width 14.8 % (11.5-14.5); Segmented Neutrophils % 76.9 %
[2021-10-14] MEDS ORDERED: FentaNYL (PF) 1,000 MCG/100 ML IV.SOLN IVC SCH ×2 (03:30→04:15)
[2021-10-14 03:45] LABS: Albumin 5.3 g/dL (3.5-5.7); Albumin/Globulin Ratio 2.9 (1.1-2.2); Bilirubin,Direct 0.7 mg/dL (0.0-0.2); Bilirubin,Indirect 0.8 mg/dL (0.0-1.0); Bilirubin,Total 1.5 mg/dL (0.3-1.0); Calcium 10.6 mg/dL (8.6-10.3); Globulin 1.8 g/dL (2.4-3.5); Magnesium 2.6 mg/dL (1.6-2.6); Phosphorous 3.1 mg/dL (2.7-4.5); Potassium 3.9 mEq/L (3.5-5.1); Total Protein 7.1 g/dL (6.4-8.9)
[2021-10-14] MEDS ORDERED: Furosemide 40 MG/4 ML VIAL IVP ONE (03:53)
[2021-10-14] MEDS: Dexmedetomidine HCl 400 MCG/100 ML MLS IVC SCH ×4 (04:05→20:50)
[2021-10-14] MEDS: FentaNYL (PF) 1,000 MCG/100 ML IV.SOLN IVC SCH ×2 (04:13→17:28)
[2021-10-14] MEDS ORDERED: Artificial Tears SOLN 15 ML BOTTLE BOTH EYES PRN (04:20)
[2021-10-14 04:38] LABS: ABG Base Excess 8 mEq/L (-2 to 3); ABG HCO3 34 mEq/L (21-27); ABG Oxygen Saturation 98 % (95-98); ABG PCO2 52 mmHg (35-45); ABG PH 7.42 pH Units (7.32-7.45); ABG PO2 112 mmHg (85-104); ABG TCO2 36 mEq/L (20-26); Blood Gas Modality ASSIST CONTROL; Blood Gas VT 500 cc
[2021-10-14] MEDS: *HR* Heparin 5,000 UNIT/ML VIAL SQ SCH ×3 (05:52→20:28)
[2021-10-14] MEDS ORDERED: *HR* Succinylcholine 200 MG/10 ML VIAL IVP ONE (06:00)
[2021-10-14] MEDS ORDERED: *HR* Etomidate 20 MG/10 ML AMPUL IVP ONE (06:00)
[2021-10-14] MEDS: Chlorhexidine Rinse 15 ML MOUTHWASH MM SCH ×2 (07:05→20:30)
[2021-10-14] MEDS: Docusate Oral Soln 100 MG/10 ML UDC GTUBE SCH ×2 (07:05→20:30)
[2021-10-14] MEDS: Meropenem 1,000 MG in Water for inj. (sterile) 20 ML IVP SCH ×2 (07:05→20:28)
[2021-10-14] MEDS: Pregabalin 75 MG CAPSULE GTUBE SCH ×2 (07:06→20:29)
[2021-10-14] MEDS: Fenofibrate 54 MG TABLET PO SCH (07:06)
[2021-10-14] MEDS: Finasteride 5 MG TABLET PO SCH (07:06)
[2021-10-14] MEDS: Pantoprazole 40 MG VIAL IVP SCH (07:06)
[2021-10-14] MEDS: Cholecalciferol (D-3) 1,000 UNIT (25MCG) TABLET PO SCH (07:06)
[2021-10-14] MEDS: Artificial Tears SOLN 15 ML BOTTLE BOTH EYES SCH ×4 (07:07→20:32)
[2021-10-14] MEDS: Nystatin SUSP 5 ML UD.LIQ PO SCH ×4 (07:10→20:30)
[2021-10-14] MEDS: Aspirin 81 MG TAB.CHEW PO SCH (07:10)
[2021-10-14] MEDS ORDERED: Artificial Tears SOLN 15 ML BOTTLE BOTH EYES SCH (08:00)
[2021-10-14] MEDS ORDERED: Chlorhexidine Rinse 15 ML MOUTHWASH MM SCH (09:00)
[2021-10-14] MEDS ORDERED: Furosemide 40 MG/4 ML VIAL IVP SCH (09:00)
[2021-10-14] MEDS: D5% in Water 1,000 ML IVC SCH ×3 (09:43→22:23)
[2021-10-14] MEDS: Insulin DETEMIR 100 UNIT/ML X5UNITS SUBQ SCH ×2 (12:09→21:00)
[2021-10-14] MEDS: Phenylephrine 20 MG in 0.9 % Sodium Chloride 250 ML IVC SCH (12:20)
[2021-10-14 12:49] LABS: INR 1.4; Prothrombin Time 15.9 Seconds (9.4-12.1)
[2021-10-14 12:50] LABS: Activated Partial Thrombo Time 24.9 Seconds (26.0-36.0)
[2021-10-14 12:56] LABS: Calcium 10.5 mg/dL (8.6-10.3); Potassium 3.6 mEq/L (3.5-5.1)
[2021-10-14] MEDS: DOBUTamine 1,000 MG/250 ML BAG IVC SCH (13:22)
[2021-10-14] MEDS ORDERED: Metoprolol XL (24 HR) Succ 25 MG TAB.ER.24H PO SCH (21:00)
[2021-10-14] MEDS: Vancomycin 1,750 MG/517.5 ML IV.SOLN IVPB SCH ×2 (23:30)
[2021-10-15] MEDS: Insulin LISPRO 300 UNITS/3 ML VIAL SUBQ SCH ×6 (00:10→20:59)
[2021-10-15] MEDS: niCARdipine 20 MG/200 ML MLS IVC SCH ×7 (00:47→23:34)
[2021-10-15] MEDS: Norepinephrine 4 MG/254 ML IV.SOLN IVC SCH ×5 (00:47→19:39)
[2021-10-15] MEDS: Amiodarone Premix 360 MG/200 ML BAG IVC SCH ×3 (01:28→18:16)
[2021-10-15] MEDS: Dexmedetomidine HCl 400 MCG/100 ML MLS IVC SCH ×2 (01:41→06:48)
[2021-10-15 04:01] LABS: ABG Base Excess 12 mEq/L (-2 to 3); ABG HCO3 37 mEq/L (21-27); ABG Oxygen Saturation 87 % (95-98); ABG PCO2 45 mmHg (35-45); ABG PH 7.51 pH Units (7.32-7.45); ABG PO2 48 mmHg (85-104); ABG TCO2 38 mEq/L (20-26); Blood Gas VT 500 cc
[2021-10-15 04:07] LABS: VBG Ionized Calcium 1.28 mmol/L (1.15-1.35)
[2021-10-15 04:11] LABS: Basophils % 0.3 %; Eosinophils # 0.3 K/mcL (0.0-0.6); Eosinophils % 3.4 %; Hematocrit 27.8 % (37.5-50.1); Hemoglobin 8.3 g/dL (12.9-16.9); Immature Granulocytes % 0.6 % (0-4); Lymphocytes # 1.2 K/mcL (0.6-4.6); Lymphocytes % 14.1 %; Mean Corpuscular HGB Conc 29.9 g/dL (31.6-35.5); Mean Corpuscular Volume 100.4 fL (83.0-100.0); Mean Platelet Volume 10.5 fL (9.4-12.4); Monocytes # 0.9 K/mcL (0.0-1.3); Monocytes % 9.8 %; Neutrophils # 6.3 K/mcL (1.6-8.9); Platelet Count 283 K/mcL (140-400); Red Blood Count 2.77 M/mcL (4.19-5.50); Red Cell Distribution Width 14.7 % (11.5-14.5); Segmented Neutrophils % 71.8 %; White Blood Count 8.8 K/mcL (4.3-11.1)
[2021-10-15 04:30] LABS: Albumin 4.4 g/dL (3.5-5.7); Albumin/Globulin Ratio 2.6 (1.1-2.2); Bilirubin,Direct 0.4 mg/dL (0.0-0.2); Bilirubin,Indirect 0.8 mg/dL (0.0-1.0); Bilirubin,Total 1.2 mg/dL (0.3-1.0); Calcium 9.9 mg/dL (8.6-10.3); Globulin 1.7 g/dL (2.4-3.5); Magnesium 2.4 mg/dL (1.6-2.6); Phosphorous 1.7 mg/dL (2.7-4.5); Potassium 3.3 mEq/L (3.5-5.1); Total Protein 6.1 g/dL (6.4-8.9)
[2021-10-15] MEDS ORDERED: Potassium Phosphate 44 MEQ in 0.9 % Sodium Chloride 250 ML IVPB ONE (05:26)
[2021-10-15] MEDS: *HR* Heparin 5,000 UNIT/ML VIAL SQ SCH ×2 (05:45→13:45)
[2021-10-15] MEDS: Nystatin SUSP 5 ML UD.LIQ PO SCH ×4 (07:03→21:01)
[2021-10-15] MEDS: Chlorhexidine Rinse 15 ML MOUTHWASH MM SCH ×2 (07:03→21:01)
[2021-10-15] MEDS: Cholecalciferol (D-3) 1,000 UNIT (25MCG) TABLET PO SCH (07:05)
[2021-10-15] MEDS: Docusate Oral Soln 100 MG/10 ML UDC GTUBE SCH ×2 (07:05→21:11)
[2021-10-15] MEDS: Fenofibrate 54 MG TABLET PO SCH (07:05)
[2021-10-15] MEDS: Finasteride 5 MG TABLET PO SCH (07:05)
[2021-10-15] MEDS: Meropenem 1,000 MG in Water for inj. (sterile) 20 ML IVP SCH ×2 (07:05→17:37)
[2021-10-15] MEDS: Aspirin 81 MG TAB.CHEW PO SCH (07:05)
[2021-10-15] MEDS: Pregabalin 75 MG CAPSULE GTUBE SCH ×2 (07:05→21:13)
[2021-10-15] MEDS: Artificial Tears SOLN 15 ML BOTTLE BOTH EYES SCH ×4 (07:10→21:01)
[2021-10-15] MEDS: D5% in Water 1,000 ML IVC SCH ×2 (07:11→17:37)
[2021-10-15] MEDS: Pantoprazole 40 MG VIAL IVP SCH (07:12)
[2021-10-15] MEDS: Insulin DETEMIR 100 UNIT/ML X5UNITS SUBQ SCH ×2 (09:08→21:11)
[2021-10-15] MEDS: FentaNYL (PF) 1,000 MCG/100 ML IV.SOLN IVC SCH ×2 (09:14→19:30)
[2021-10-15] MEDS ORDERED: Perflutren Lipid Microsphere 1.3 ML in 0.9 % Sodium Chloride 8.7 ML IVP PRN (09:44)
[2021-10-15] MEDS: Phenylephrine 20 MG in 0.9 % Sodium Chloride 250 ML IVC SCH ×3 (09:50→21:16)
[2021-10-15 11:19] LABS: Bilirubin,Urine Negative (Negative); Blood,Urine Moderate (Negative); Clarity,Urine Clear (Clear); Color,Urine Light-Yellow (Yellow); Glucose,Urine (UA) 150 mg/dL (Normal); Hyaline Casts,Urine Moderate per lpf (None Seen); Ketones,Urine Negative (Negative); Leukocyte Esterase,Urine Trace (Negative); Mucus,Urine Few per lpf (None-Few); Nitrite,Urine Negative (Negative); Protein,Urine 30 mg/dL (Neg-Trace); RBC,Urine 15-30 per hpf (0-3); Specific Gravity,Urine 1.024 (1.010-1.025); Squamous Epithelial Cell,Urine Few per hpf (None-Few); Urobilinogen,Urine Normal (Normal); WBC,Urine 15-30 per hpf (0-3)
[2021-10-15] MEDS ORDERED: Lidocaine/EPI 1:100k 1% 20 ML VIAL INFILT ONE (13:04)
[2021-10-15] MEDS ORDERED: *HR* Rocuronium Bromide 50 MG/5 ML VIAL IVP ONE (13:05)
[2021-10-15] MEDS ORDERED: Silver Nitrate Applicator 1 STICK..EA. TP ONE (13:55)
[2021-10-15] MEDS: DOBUTamine 1,000 MG/250 ML BAG IVC SCH (20:57)
[2021-10-15] MEDS: Vancomycin 1,750 MG/517.5 ML IV.SOLN IVPB SCH (23:00)
[2021-10-16] MEDS: Insulin LISPRO 300 UNITS/3 ML VIAL SUBQ SCH ×6 (00:08→20:28)
[2021-10-16] MEDS: Meropenem 1,000 MG in Water for inj. (sterile) 20 ML IVP SCH ×3 (00:25→15:56)
[2021-10-16] MEDS: Norepinephrine 4 MG/254 ML IV.SOLN IVC SCH (00:30)
[2021-10-16] MEDS: Phenylephrine 20 MG in 0.9 % Sodium Chloride 250 ML IVC SCH ×4 (02:06→19:29)
[2021-10-16] MEDS ORDERED: 0.9 % Sodium Chloride 1,000 ML ONE (03:13)
[2021-10-16 03:22] LABS: VBG Ionized Calcium 1.19 mmol/L (1.15-1.35)
[2021-10-16 03:30] LABS: Basophils # 0.1 K/mcL (0.0-0.2); Basophils % 0.6 %; Eosinophils # 1.1 K/mcL (0.0-0.6); Eosinophils % 7.2 %; Hematocrit 27.5 % (37.5-50.1); Hemoglobin 8.2 g/dL (12.9-16.9); Immature Granulocytes % 0.7 % (0-4); Lymphocytes # 1.9 K/mcL (0.6-4.6); Lymphocytes % 12.4 %; Mean Corpuscular HGB Conc 29.8 g/dL (31.6-35.5); Mean Corpuscular Hemoglobin 29.7 pg (28.0-33.3); Mean Corpuscular Volume 99.6 fL (83.0-100.0); Mean Platelet Volume 10.7 fL (9.4-12.4); Monocytes % 8.8 %; Platelet Count 358 K/mcL (140-400); Red Blood Count 2.76 M/mcL (4.19-5.50); Red Cell Distribution Width 15.4 % (11.5-14.5); Segmented Neutrophils % 70.3 %
[2021-10-16 03:32] LABS: Monocytes # 1.4 K/mcL (0.0-1.3); Neutrophils # 10.8 K/mcL (1.6-8.9); White Blood Count 15.3 K/mcL (4.3-11.1)
[2021-10-16] MEDS: niCARdipine 20 MG/200 ML MLS IVC SCH (03:48)
[2021-10-16 03:52] LABS: Albumin 3.9 g/dL (3.5-5.7); Albumin/Globulin Ratio 2.3 (1.1-2.2); Bilirubin,Direct 0.6 mg/dL (0.0-0.2); Bilirubin,Indirect 0.8 mg/dL (0.0-1.0); Bilirubin,Total 1.4 mg/dL (0.3-1.0); Calcium 9.2 mg/dL (8.6-10.3); Globulin 1.7 g/dL (2.4-3.5); Magnesium 2.2 mg/dL (1.6-2.6); Phosphorous 3.6 mg/dL (2.7-4.5); Potassium 3.5 mEq/L (3.5-5.1); Total Protein 5.6 g/dL (6.4-8.9)
[2021-10-16 04:28] LABS: ABG Base Excess 7 mEq/L (-2 to 3); ABG HCO3 33 mEq/L (21-27); ABG Oxygen Saturation 98 % (95-98); ABG PCO2 51 mmHg (35-45); ABG PH 7.41 pH Units (7.32-7.45); ABG PO2 98 mmHg (85-104); ABG TCO2 35 mEq/L (20-26); Blood Gas VT 500 cc
[2021-10-16] MEDS: Amiodarone Premix 360 MG/200 ML BAG IVC SCH (05:46)
[2021-10-16] MEDS: FentaNYL (PF) 1,000 MCG/100 ML IV.SOLN IVC SCH ×2 (06:08→17:23)
[2021-10-16] MEDS ORDERED: Potassium Chloride Elixir 20 MEQ/15 ML UDC GTUBE ONE (08:25)
[2021-10-16] MEDS: Cholecalciferol (D-3) 1,000 UNIT (25MCG) TABLET PO SCH (09:45)
[2021-10-16] MEDS: Pregabalin 75 MG CAPSULE GTUBE SCH ×2 (09:45→20:26)
[2021-10-16] MEDS: Fenofibrate 54 MG TABLET PO SCH (09:45)
[2021-10-16] MEDS: Nystatin SUSP 5 ML UD.LIQ PO SCH ×4 (09:45→17:24)
[2021-10-16] MEDS: Aspirin 81 MG TAB.CHEW PO SCH (09:45)
[2021-10-16] MEDS: Chlorhexidine Rinse 15 ML MOUTHWASH MM SCH ×2 (09:45→20:27)
[2021-10-16] MEDS: Finasteride 5 MG TABLET PO SCH (09:45)
[2021-10-16] MEDS: Docusate Oral Soln 100 MG/10 ML UDC GTUBE SCH ×2 (09:45→20:26)
[2021-10-16] MEDS: Pantoprazole 40 MG VIAL IVP SCH (09:46)
[2021-10-16] MEDS: Artificial Tears SOLN 15 ML BOTTLE BOTH EYES SCH ×4 (09:49→20:26)
[2021-10-16] MEDS ORDERED: Bisacodyl 10 MG RECTAL SUPPOSITORY RC ONE (10:00)
[2021-10-16] MEDS ORDERED: Glycerin RECTAL Suppository RC ONE (10:00)
[2021-10-16] MEDS ORDERED: Lactulose Oral Soln 20 GM/30 ML UDC PO ONE (10:23)
[2021-10-16] MEDS: *HR* Amiodarone 200 MG TABLET PO SCH ×2 (12:15→20:26)
[2021-10-16] MEDS: *HR* Heparin 5,000 UNIT/ML VIAL SQ SCH ×2 (15:56→22:02)
[2021-10-16] MEDS: DOBUTamine 1,000 MG/250 ML BAG IVC SCH (22:02)
[2021-10-17] MEDS: Meropenem 1,000 MG in Water for inj. (sterile) 20 ML IVP SCH ×2 (01:33→08:40)
[2021-10-17] MEDS: Insulin LISPRO 300 UNITS/3 ML VIAL SUBQ SCH ×6 (01:34→19:36)
[2021-10-17] MEDS: FentaNYL (PF) 1,000 MCG/100 ML IV.SOLN IVC SCH (03:29)
[2021-10-17 04:01] LABS: VBG Ionized Calcium 1.19 mmol/L (1.15-1.35)
[2021-10-17 04:08] LABS: Basophils % 0.4 %; Eosinophils # 0.4 K/mcL (0.0-0.6); Eosinophils % 3.7 %; Hematocrit 27.1 % (37.5-50.1); Hemoglobin 8.1 g/dL (12.9-16.9); Immature Granulocytes % 0.8 % (0-4); Lymphocytes # 1.1 K/mcL (0.6-4.6); Lymphocytes % 11.2 %; Mean Corpuscular HGB Conc 29.9 g/dL (31.6-35.5); Mean Corpuscular Hemoglobin 29.8 pg (28.0-33.3); Mean Corpuscular Volume 99.6 fL (83.0-100.0); Mean Platelet Volume 11.2 fL (9.4-12.4); Monocytes # 0.7 K/mcL (0.0-1.3); Neutrophils # 7.5 K/mcL (1.6-8.9); Platelet Count 279 K/mcL (140-400); Red Blood Count 2.72 M/mcL (4.19-5.50); Red Cell Distribution Width 15.1 % (11.5-14.5); Segmented Neutrophils % 76.9 %; White Blood Count 9.8 K/mcL (4.3-11.1)
[2021-10-17 04:31] LABS: Albumin 3.9 g/dL (3.5-5.7); Albumin/Globulin Ratio 2.3 (1.1-2.2); Bilirubin,Total 1.4 mg/dL (0.3-1.0); Calcium 9.5 mg/dL (8.6-10.3); Globulin 1.7 g/dL (2.4-3.5); Magnesium 2.4 mg/dL (1.6-2.6); Phosphorous 3.7 mg/dL (2.7-4.5); Potassium 3.5 mEq/L (3.5-5.1); Total Protein 5.6 g/dL (6.4-8.9)
[2021-10-17 04:48] LABS: ABG Base Excess -5 mEq/L (-2 to 3); ABG HCO3 19 mEq/L (21-27); ABG Oxygen Saturation 95 % (95-98); ABG PCO2 25 mmHg (35-45); ABG PH 7.48 pH Units (7.32-7.45); ABG PO2 66 mmHg (85-104); ABG TCO2 19 mEq/L (20-26); Blood Gas Modality AF; Blood Gas VT 500 cc
[2021-10-17] MEDS: *HR* Heparin 5,000 UNIT/ML VIAL SQ SCH ×2 (06:23→18:58)
[2021-10-17] MEDS: Pregabalin 75 MG CAPSULE GTUBE SCH (08:39)
[2021-10-17] MEDS: Fenofibrate 54 MG TABLET PO SCH (08:39)
[2021-10-17] MEDS: *HR* Amiodarone 200 MG TABLET PO SCH ×2 (08:39→20:07)
[2021-10-17] MEDS: Docusate Oral Soln 100 MG/10 ML UDC GTUBE SCH ×2 (08:40→20:06)
[2021-10-17] MEDS: Cholecalciferol (D-3) 1,000 UNIT (25MCG) TABLET PO SCH (08:40)
[2021-10-17] MEDS: Chlorhexidine Rinse 15 ML MOUTHWASH MM SCH ×2 (08:40→20:06)
[2021-10-17] MEDS: Aspirin 81 MG TAB.CHEW PO SCH (08:40)
[2021-10-17] MEDS: Finasteride 5 MG TABLET PO SCH (08:40)
[2021-10-17] MEDS: Nystatin SUSP 5 ML UD.LIQ PO SCH ×4 (08:41→20:06)
[2021-10-17] MEDS: Pantoprazole 40 MG VIAL IVP SCH (08:42)
[2021-10-17] MEDS ORDERED: Potassium Chloride Elixir 20 MEQ/15 ML UDC PO ONE (08:47)
[2021-10-17] MEDS: Artificial Tears SOLN 15 ML BOTTLE BOTH EYES SCH ×4 (08:53→20:06)
[2021-10-17] MEDS ORDERED: *HR* Digoxin 0.5 MG/2 ML AMPUL IVP ONE (09:00)
[2021-10-17] MEDS: *HR* Metoprolol 5 MG/5 ML VIAL IVP PRN ×3 (11:57→20:06)
[2021-10-17] MEDS: *HR* Enoxaparin 120 MG/0.8 ML SYRINGE SQ SCH (15:46)
[2021-10-17] MEDS: Albumin 25% 25gram/100mL 25 GM/100 ML IV.SOLN IVPB SCH ×2 (18:28→23:08)
[2021-10-17] MEDS: Norepinephrine 4 MG/254 ML IV.SOLN IVC SCH ×2 (18:55→18:56)
[2021-10-17] MEDS: niCARdipine 20 MG/200 ML MLS IVC SCH ×3 (18:56→20:07)
[2021-10-17] MEDS: DOBUTamine 1,000 MG/250 ML BAG IVC SCH (18:58)
[2021-10-17] MEDS: Insulin DETEMIR 100 UNIT/ML X5UNITS SUBQ SCH (18:59)
[2021-10-18] MEDS: Insulin LISPRO 300 UNITS/3 ML VIAL SUBQ SCH ×4 (00:15→11:33)
[2021-10-18 04:05] LABS: Basophils # 0.1 K/mcL (0.0-0.2); Basophils % 0.6 %; Eosinophils # 0.2 K/mcL (0.0-0.6); Eosinophils % 2.2 %; Hemoglobin 8.7 g/dL (12.9-16.9); Immature Granulocytes % 0.8 % (0-4); Lymphocytes # 0.8 K/mcL (0.6-4.6); Lymphocytes % 10.1 %; Mean Corpuscular Hemoglobin 29.6 pg (28.0-33.3); Mean Corpuscular Volume 98.6 fL (83.0-100.0); Mean Platelet Volume 11.2 fL (9.4-12.4); Monocytes # 0.7 K/mcL (0.0-1.3); Monocytes % 8.6 %; Platelet Count 266 K/mcL (140-400); Red Blood Count 2.94 M/mcL (4.19-5.50); Red Cell Distribution Width 15.1 % (11.5-14.5); Segmented Neutrophils % 77.7 %; White Blood Count 7.8 K/mcL (4.3-11.1)
[2021-10-18 04:14] LABS: VBG Ionized Calcium 1.24 mmol/L (1.15-1.35)
[2021-10-18 04:23] LABS: Albumin/Globulin Ratio 1.6 (1.1-2.2); Bilirubin,Total 1.8 mg/dL (0.3-1.0); Calcium 10.4 mg/dL (8.6-10.3); Globulin 2.5 g/dL (2.4-3.5); Magnesium 2.7 mg/dL (1.6-2.6); Phosphorous 1.8 mg/dL (2.7-4.5); Potassium 3.9 mEq/L (3.5-5.1); Total Protein 6.5 g/dL (6.4-8.9)
[2021-10-18] MEDS: Norepinephrine 4 MG/254 ML IV.SOLN IVC SCH (04:26)
[2021-10-18] MEDS: niCARdipine 20 MG/200 ML MLS IVC SCH (04:27)
[2021-10-18 04:40] LABS: ABG Base Excess 9 mEq/L (-2 to 3); ABG HCO3 32 mEq/L (21-27); ABG Oxygen Saturation 95 % (95-98); ABG PCO2 38 mmHg (35-45); ABG PH 7.54 pH Units (7.32-7.45); ABG PO2 66 mmHg (85-104); ABG TCO2 34 mEq/L (20-26); Blood Gas Modality AF; Blood Gas VT 500 cc
[2021-10-18] MEDS: *HR* Enoxaparin 120 MG/0.8 ML SYRINGE SQ SCH ×2 (04:59→18:01)
[2021-10-18] MEDS: *HR* Metoprolol 5 MG/5 ML VIAL IVP PRN ×3 (07:24→21:48)
[2021-10-18] MEDS: Nystatin SUSP 5 ML UD.LIQ PO SCH ×5 (07:34→22:03)
[2021-10-18] MEDS: Albumin 25% 25gram/100mL 25 GM/100 ML IV.SOLN IVPB SCH (07:34)
[2021-10-18] MEDS: Artificial Tears SOLN 15 ML BOTTLE BOTH EYES SCH ×5 (07:36→20:30)
[2021-10-18] MEDS: Docusate Oral Soln 100 MG/10 ML UDC GTUBE SCH ×2 (07:36→22:04)
[2021-10-18] MEDS: Chlorhexidine Rinse 15 ML MOUTHWASH MM SCH ×2 (07:36→20:30)
[2021-10-18] MEDS: Pantoprazole 40 MG VIAL IVP SCH (07:36)
[2021-10-18] MEDS: Finasteride 5 MG TABLET PO SCH (07:37)
[2021-10-18] MEDS: *HR* Amiodarone 200 MG TABLET PO SCH ×2 (07:37→22:03)
[2021-10-18] MEDS: Aspirin 81 MG TAB.CHEW PO SCH (07:37)
[2021-10-18] MEDS: Fenofibrate 54 MG TABLET PO SCH (07:37)
[2021-10-18] MEDS: Cholecalciferol (D-3) 1,000 UNIT (25MCG) TABLET PO SCH (07:37)
[2021-10-18] MEDS ORDERED: Potassium Chloride Elixir 20 MEQ/15 ML UDC GTUBE ONE (07:45)
[2021-10-18] MEDS ORDERED: Pregabalin 75 MG CAPSULE GTUBE SCH (09:00)
[2021-10-18] MEDS ORDERED: carvediloL 6.25 MG TABLET PO SCH ×3 (09:24→21:00)
[2021-10-18] MEDS ORDERED: Calcium Gluconate 1gm/50mL 1 GM/50 ML BAG IVPB PRN (11:35)
[2021-10-18] MEDS ORDERED: D5% in Water 1,000 ML IVC PRN (11:35)
[2021-10-18] MEDS ORDERED: *HR* Dextrose 50 % in Water (Syg) 50 ML SYRINGE IVP PRN (11:35)
[2021-10-18] MEDS ORDERED: Artificial Tears SOLN 15 ML BOTTLE BOTH EYES PRN (11:35)
[2021-10-18] MEDS ORDERED: Potassium Chloride 40 MEQ/200 ML BAG IVPB PRN (11:35)
[2021-10-18] MEDS ORDERED: Dextrose 4 GM Chewable Tablets PO PRN ×2 (11:35)
[2021-10-18] MEDS ORDERED: Naloxone 0.4 MG/ML INJ IVP PRN (11:35)
[2021-10-18] MEDS ORDERED: Ondansetron 4 MG/2 ML VIAL IVP PRN (11:35)
[2021-10-18] MEDS ORDERED: Insulin LISPRO 300 UNITS/3 ML VIAL SUBQ SCH (12:00)
[2021-10-18] MEDS ORDERED: *HR* Metoprolol 5 MG/5 ML VIAL IVP ONE (13:30)
[2021-10-18] MEDS: D5% in Water 1,000 ML IVC SCH (15:08)
[2021-10-18] MEDS: carvediloL 6.25 MG TABLET GTUBE SCH ×2 (15:13→22:02)
[2021-10-18] MEDS ORDERED: QUEtiapine Fumarate 25 MG TABLET PO SCH (21:00)
[2021-10-18] MEDS: QUEtiapine Fumarate 25 MG TABLET PO SCH (22:03)
[2021-10-18] MEDS: Pregabalin 75 MG CAPSULE GTUBE SCH (22:05)
[2021-10-18 22:10] LABS: BUN/Creatinine Ratio 35 (6-26); Blood Urea Nitrogen 49 mg/dL (8-23); Calcium 10.8 mg/dL (8.6-10.3); Carbon Dioxide 34 mEq/L (23-29); Chloride 115 mEq/L (98-107); Glucose 141 mg/dL (70-105); Magnesium 2.7 mg/dL (1.6-2.6); Osmolality,Calculated 337 (280-300); Phosphorous 2.2 mg/dL (2.7-4.5); Potassium 3.9 mEq/L (3.5-5.1); Sodium 156 mEq/L (136-145); eGFR For African Americans > 60 (> 60); eGFR For Non-African Americans 51 (> 60)
[2021-10-18] MEDS ORDERED: Potassium Phosphate 44 MEQ in 0.9 % Sodium Chloride 250 ML IVPB ONE (22:30)
[2021-10-18] MEDS ORDERED: Furosemide 20 MG/2 ML VIAL IVP ONE (22:31)
[2021-10-18] MEDS ORDERED: Saliva Stimulant 44.3ml BOTTLE PO PRN (22:34)
[2021-10-18] MEDS: Ipratropium/Albuterol Neb 3 ML IH SCH ×2 (23:35→23:57)
[2021-10-19] MEDS ORDERED: Furosemide 20 MG/2 ML VIAL IVP ONE (00:09)
[2021-10-19] MEDS ORDERED: carvediloL 6.25 MG TABLET PO ONE (00:11)
[2021-10-19] MEDS: *HR* Metoprolol 5 MG/5 ML VIAL IVP PRN (00:30)
[2021-10-19] MEDS: Ipratropium/Albuterol Neb 3 ML IH SCH (00:30)
[2021-10-19] MEDS: Levalbuterol Neb 1.25 MG/3 ML IH SCH ×7 (00:36→23:49)
[2021-10-19] MEDS: Acetylcysteine 10% 2 ML INHSOL IH SCH ×5 (04:43→19:58)
[2021-10-19] MEDS: D5% in Water 1,000 ML IVC SCH ×2 (04:50→18:35)
[2021-10-19 05:01] LABS: VBG Ionized Calcium 1.33 mmol/L (1.15-1.35)
[2021-10-19 05:14] LABS: Basophils % 0.6 %; Immature Granulocytes % 0.6 % (0-4)
[2021-10-19 05:16] LABS: Basophils # 0.1 K/mcL (0.0-0.2); Eosinophils # 0.2 K/mcL (0.0-0.6); Eosinophils % 2.3 %; Hematocrit 28.3 % (37.5-50.1); Hemoglobin 8.5 g/dL (12.9-16.9); Lymphocytes # 0.9 K/mcL (0.6-4.6); Lymphocytes % 9.5 %; Mean Corpuscular Hemoglobin 30.1 pg (28.0-33.3); Mean Corpuscular Volume 100.4 fL (83.0-100.0); Mean Platelet Volume 11.8 fL (9.4-12.4); Monocytes # 0.9 K/mcL (0.0-1.3); Monocytes % 8.9 %; Neutrophils # 7.6 K/mcL (1.6-8.9); Platelet Count 275 K/mcL (140-400); Red Blood Count 2.82 M/mcL (4.19-5.50); Red Cell Distribution Width 15.6 % (11.5-14.5); Segmented Neutrophils % 78.1 %; White Blood Count 9.7 K/mcL (4.3-11.1)
[2021-10-19 05:17] LABS: Alanine Aminotransferase 12 Units/L (7-52); Albumin 3.9 g/dL (3.5-5.7); Albumin/Globulin Ratio 1.8 (1.1-2.2); Alkaline Phosphatase 21 Units/L (34-104); Aspartate Amino Transferase 23 Units/L (13-39); BUN/Creatinine Ratio 36 (6-26); Bilirubin,Total 1.4 mg/dL (0.3-1.0); Blood Urea Nitrogen 51 mg/dL (8-23); Calcium 10.5 mg/dL (8.6-10.3); Carbon Dioxide 33 mEq/L (23-29); Chloride 115 mEq/L (98-107); Globulin 2.2 g/dL (2.4-3.5); Glucose 160 mg/dL (70-105); Magnesium 2.6 mg/dL (1.6-2.6); Osmolality,Calculated 335 (280-300); Phosphorous 3.2 mg/dL (2.7-4.5); Potassium 4.2 mEq/L (3.5-5.1); Sodium 154 mEq/L (136-145); Total Protein 6.1 g/dL (6.4-8.9); eGFR For African Americans > 60 (> 60); eGFR For Non-African Americans 51 (> 60)
[2021-10-19] MEDS: *HR* Enoxaparin 120 MG/0.8 ML SYRINGE SQ SCH ×2 (05:20→17:02)
[2021-10-19 06:04] LABS: Platelet Estimate Normal (Normal)
[2021-10-19 06:05] LABS: Hypochromasia Present (Not Present)
[2021-10-19] MEDS: Pantoprazole 40 MG VIAL IVP SCH (08:17)
[2021-10-19] MEDS: carvediloL 6.25 MG TABLET PO SCH ×2 (08:17→16:43)
[2021-10-19] MEDS: Docusate Oral Soln 100 MG/10 ML UDC GTUBE SCH ×2 (08:17→21:23)
[2021-10-19] MEDS: Pregabalin 75 MG CAPSULE GTUBE SCH ×2 (08:17→21:31)
[2021-10-19] MEDS: Chlorhexidine Rinse 15 ML MOUTHWASH MM SCH ×2 (08:18→21:30)
[2021-10-19] MEDS: Aspirin 81 MG TAB.CHEW PO SCH (08:18)
[2021-10-19] MEDS: *HR* Amiodarone 200 MG TABLET PO SCH ×2 (08:18→21:31)
[2021-10-19] MEDS: Cholecalciferol (D-3) 1,000 UNIT (25MCG) TABLET PO SCH (08:18)
[2021-10-19] MEDS: Nystatin SUSP 5 ML UD.LIQ PO SCH ×4 (08:18→21:22)
[2021-10-19] MEDS: Finasteride 5 MG TABLET PO SCH (08:18)
[2021-10-19] MEDS: Saline Nasal Spray 44 ML BOTTLE NS SCH ×4 (08:19→21:23)
[2021-10-19] MEDS: Fenofibrate 54 MG TABLET PO SCH (08:19)
[2021-10-19] MEDS: Artificial Tears SOLN 15 ML BOTTLE BOTH EYES SCH ×4 (08:19→21:22)
[2021-10-19] MEDS: Ertapenem 1,000 MG in 0.9 % Sodium Chloride Mini Bag 100 ML IVPB SCH (09:55)
[2021-10-19] MEDS: Vancomycin 1,750 MG/517.5 ML IV.SOLN IVPB SCH (09:56)
[2021-10-19] MEDS ORDERED: *HR* Propofol 200 MG/20 ML VIAL IVP ONE (10:57)
[2021-10-19] MEDS ORDERED: *HR* FentaNYL (PF) 100 MCG/2 ML VIAL ONE (10:57)
[2021-10-19] MEDS ORDERED: Lidocaine -MPF 2% 5 ML VIAL ONE (10:58)
[2021-10-19] MEDS ORDERED: D10% in Water 500 ML IVC PRN (12:11)
[2021-10-19 15:04] LABS: BUN/Creatinine Ratio 34 (6-26); Blood Urea Nitrogen 46 mg/dL (8-23); Calcium 8.9 mg/dL (8.6-10.3); Carbon Dioxide 31 mEq/L (23-29); Chloride 103 mEq/L (98-107); Glucose 537 mg/dL (70-105); Osmolality,Calculated 324 (280-300); Potassium 3.6 mEq/L (3.5-5.1); Sodium 139 mEq/L (136-145); eGFR For African Americans > 60 (> 60); eGFR For Non-African Americans 53 (> 60)
[2021-10-19 15:48] LABS: Glucose 493 mg/dL (70-105); Sodium 141 mEq/L (136-145)
[2021-10-19] MEDS ORDERED: Clinimix E 5%-15% SOLUTION 2,000 ML IVC SCH (17:00)
[2021-10-19] MEDS: Metoclopramide 10 MG/2 ML VIAL IVP SCH (17:02)
[2021-10-19 19:37] LABS: BUN/Creatinine Ratio 36 (6-26); Blood Urea Nitrogen 52 mg/dL (8-23); Carbon Dioxide 32 mEq/L (23-29); Chloride 112 mEq/L (98-107); Glucose 231 mg/dL (70-105); Osmolality,Calculated 331 (280-300); Potassium 3.6 mEq/L (3.5-5.1); Sodium 150 mEq/L (136-145); eGFR For African Americans > 60 (> 60); eGFR For Non-African Americans 50 (> 60)
[2021-10-19] MEDS: QUEtiapine Fumarate 25 MG TABLET PO SCH (21:31)
[2021-10-19 22:46] LABS: BUN/Creatinine Ratio 37 (6-26); Blood Urea Nitrogen 51 mg/dL (8-23); Carbon Dioxide 32 mEq/L (23-29); Chloride 113 mEq/L (98-107); Glucose 180 mg/dL (70-105); Osmolality,Calculated 330 (280-300); Potassium 3.6 mEq/L (3.5-5.1); Sodium 151 mEq/L (136-145); eGFR For African Americans > 60 (> 60); eGFR For Non-African Americans 52 (> 60)
[2021-10-20] MEDS: Metoclopramide 10 MG/2 ML VIAL IVP SCH ×3 (00:18→13:21)
[2021-10-20] MEDS: Levalbuterol Neb 1.25 MG/3 ML IH SCH ×5 (04:03→20:42)
[2021-10-20] MEDS: Acetylcysteine 10% 2 ML INHSOL IH SCH ×4 (04:03→20:42)
[2021-10-20 04:15] LABS: VBG Ionized Calcium 1.32 mmol/L (1.15-1.35)
[2021-10-20 04:59] LABS: Basophils # 0.1 K/mcL (0.0-0.2); Basophils % 0.6 %; Eosinophils # 0.4 K/mcL (0.0-0.6); Hematocrit 27.2 % (37.5-50.1); Immature Granulocytes % 0.6 % (0-4); Lymphocytes # 1.2 K/mcL (0.6-4.6); Lymphocytes % 12.2 %; Mean Corpuscular HGB Conc 29.4 g/dL (31.6-35.5); Mean Corpuscular Hemoglobin 29.7 pg (28.0-33.3); Mean Corpuscular Volume 101.1 fL (83.0-100.0); Mean Platelet Volume 12.2 fL (9.4-12.4); Monocytes # 0.8 K/mcL (0.0-1.3); Monocytes % 7.5 %; Neutrophils # 7.6 K/mcL (1.6-8.9); Platelet Count 235 K/mcL (140-400); Red Blood Count 2.69 M/mcL (4.19-5.50); Red Cell Distribution Width 15.9 % (11.5-14.5); Segmented Neutrophils % 75.1 %
[2021-10-20 05:12] LABS: Alanine Aminotransferase 13 Units/L (7-52); Albumin 3.7 g/dL (3.5-5.7); Albumin/Globulin Ratio 1.7 (1.1-2.2); Alkaline Phosphatase 22 Units/L (34-104); Aspartate Amino Transferase 27 Units/L (13-39); BUN/Creatinine Ratio 37 (6-26); Bilirubin,Total 1.2 mg/dL (0.3-1.0); Blood Urea Nitrogen 53 mg/dL (8-23); Calcium 9.9 mg/dL (8.6-10.3); Carbon Dioxide 32 mEq/L (23-29); Chloride 111 mEq/L (98-107); Globulin 2.2 g/dL (2.4-3.5); Glucose 137 mg/dL (70-105); Magnesium 2.4 mg/dL (1.6-2.6); Osmolality,Calculated 323 (280-300); Potassium 3.5 mEq/L (3.5-5.1); Sodium 148 mEq/L (136-145); Total Protein 5.9 g/dL (6.4-8.9); eGFR For African Americans > 60 (> 60); eGFR For Non-African Americans 50 (> 60)
[2021-10-20] MEDS: *HR* Enoxaparin 120 MG/0.8 ML SYRINGE SQ SCH ×2 (06:04→17:41)
[2021-10-20 07:53] LABS: Triglycerides 82 mg/dL (< 150)
[2021-10-20] MEDS ORDERED: MetroNIDAZOLE 500 MG/100 ML 500 MG/100 ML BAG IVPB SCH (08:00)
[2021-10-20] MEDS: Aspirin 81 MG TAB.CHEW PO SCH (08:05)
[2021-10-20] MEDS: Cholecalciferol (D-3) 1,000 UNIT (25MCG) TABLET PO SCH (08:05)
[2021-10-20] MEDS: Fenofibrate 54 MG TABLET PO SCH (08:05)
[2021-10-20] MEDS: *HR* Amiodarone 200 MG TABLET PO SCH ×2 (08:05→20:47)
[2021-10-20] MEDS: Finasteride 5 MG TABLET PO SCH (08:05)
[2021-10-20] MEDS: Pregabalin 75 MG CAPSULE GTUBE SCH ×2 (08:06→20:46)
[2021-10-20] MEDS: Nystatin SUSP 5 ML UD.LIQ PO SCH ×4 (08:06→20:46)
[2021-10-20] MEDS: Chlorhexidine Rinse 15 ML MOUTHWASH MM SCH ×2 (08:06→20:46)
[2021-10-20] MEDS: Pantoprazole 40 MG VIAL IVP SCH (08:06)
[2021-10-20] MEDS: carvediloL 6.25 MG TABLET PO SCH (08:06)
[2021-10-20] MEDS: Docusate Oral Soln 100 MG/10 ML UDC GTUBE SCH ×2 (08:06→20:47)
[2021-10-20] MEDS: Saline Nasal Spray 44 ML BOTTLE NS SCH ×4 (08:07→20:48)
[2021-10-20] MEDS: Artificial Tears SOLN 15 ML BOTTLE BOTH EYES SCH ×4 (08:07→20:47)
[2021-10-20] MEDS: Ertapenem 1,000 MG in 0.9 % Sodium Chloride Mini Bag 100 ML IVPB SCH (08:32)
[2021-10-20] MEDS: D5% in Water 1,000 ML IVC SCH ×2 (08:38→20:47)
[2021-10-20] MEDS ORDERED: D10% in Water 500 ML IVC PRN (11:14)
[2021-10-20] MEDS: Vancomycin 1,750 MG/517.5 ML IV.SOLN IVPB SCH (13:20)
[2021-10-20 14:20] LABS: BUN/Creatinine Ratio 37 (6-26); Blood Urea Nitrogen 57 mg/dL (8-23); Calcium 9.8 mg/dL (8.6-10.3); Carbon Dioxide 31 mEq/L (23-29); Chloride 109 mEq/L (98-107); Glucose 228 mg/dL (70-105); Lactate Dehydrogenase 235 Units/L (140-271); Osmolality,Calculated 331 (280-300); Potassium 3.5 mEq/L (3.5-5.1); Sodium 149 mEq/L (136-145); Total Protein 5.4 g/dL (6.4-8.9); eGFR For African Americans 56 (> 60); eGFR For Non-African Americans 46 (> 60)
[2021-10-20] MEDS ORDERED: Clinimix E 5%-15% SOLUTION 2,000 ML IVC SCH (17:00)
[2021-10-20] MEDS: Potassium Chloride Elixir 20 MEQ/15 ML UDC PO SCH ×2 (17:44→20:50)
[2021-10-20 19:02] LABS: Calcium 9.7 mg/dL (8.6-10.3); Potassium 3.7 mEq/L (3.5-5.1)
[2021-10-20] MEDS: QUEtiapine Fumarate 25 MG TABLET PO SCH (20:46)
[2021-10-20 23:27] LABS: Calcium 9.6 mg/dL (8.6-10.3); Potassium 3.9 mEq/L (3.5-5.1)
[2021-10-21] MEDS: Levalbuterol Neb 1.25 MG/3 ML IH SCH ×7 (00:16→23:38)
[2021-10-21] MEDS: Acetylcysteine 10% 2 ML INHSOL IH SCH ×4 (04:47→20:17)
[2021-10-21 04:58] LABS: Basophils % 0.5 %; Eosinophils # 0.3 K/mcL (0.0-0.6); Eosinophils % 4.2 %; Hemoglobin 7.1 g/dL (12.9-16.9); Immature Granulocytes % 0.5 % (0-4); Lymphocytes # 1.2 K/mcL (0.6-4.6); Lymphocytes % 14.9 %; Mean Corpuscular HGB Conc 29.6 g/dL (31.6-35.5); Mean Corpuscular Hemoglobin 29.7 pg (28.0-33.3); Mean Corpuscular Volume 100.4 fL (83.0-100.0); Mean Platelet Volume 11.6 fL (9.4-12.4); Monocytes # 0.6 K/mcL (0.0-1.3); Monocytes % 7.7 %; Neutrophils # 5.9 K/mcL (1.6-8.9); Platelet Count 196 K/mcL (140-400); Red Blood Count 2.39 M/mcL (4.19-5.50); Red Cell Distribution Width 16.1 % (11.5-14.5); Segmented Neutrophils % 72.2 %; White Blood Count 8.2 K/mcL (4.3-11.1)
[2021-10-21 05:03] LABS: VBG Ionized Calcium 1.36 mmol/L (1.15-1.35)
[2021-10-21 05:05] LABS: INR 1.4; Prothrombin Time 15.5 Seconds (9.4-12.1)
[2021-10-21 05:20] LABS: Albumin 3.4 g/dL (3.5-5.7); Albumin/Globulin Ratio 1.6 (1.1-2.2); Bilirubin,Total 0.9 mg/dL (0.3-1.0); Calcium 9.6 mg/dL (8.6-10.3); Globulin 2.1 g/dL (2.4-3.5); Magnesium 2.3 mg/dL (1.6-2.6); Phosphorous 3.3 mg/dL (2.7-4.5); Potassium 3.7 mEq/L (3.5-5.1); Total Protein 5.5 g/dL (6.4-8.9)
[2021-10-21] MEDS: *HR* Enoxaparin 120 MG/0.8 ML SYRINGE SQ SCH ×2 (05:31→17:05)
[2021-10-21] MEDS: Aspirin 81 MG TAB.CHEW PO SCH (08:21)
[2021-10-21] MEDS: Artificial Tears SOLN 15 ML BOTTLE BOTH EYES SCH ×4 (08:21→20:02)
[2021-10-21] MEDS: Saline Nasal Spray 44 ML BOTTLE NS SCH ×4 (08:21→20:02)
[2021-10-21] MEDS: Cholecalciferol (D-3) 1,000 UNIT (25MCG) TABLET PO SCH (08:21)
[2021-10-21] MEDS: Fenofibrate 54 MG TABLET PO SCH (08:22)
[2021-10-21] MEDS: Metoprolol XL (24 HR) Succ 25 MG TAB.ER.24H PO SCH (08:22)
[2021-10-21] MEDS: Nystatin SUSP 5 ML UD.LIQ PO SCH ×4 (08:22→20:01)
[2021-10-21] MEDS: Finasteride 5 MG TABLET PO SCH (08:22)
[2021-10-21] MEDS: Potassium Chloride Elixir 20 MEQ/15 ML UDC PO SCH ×2 (08:22→20:01)
[2021-10-21] MEDS: *HR* Amiodarone 200 MG TABLET PO SCH ×2 (08:22→20:02)
[2021-10-21] MEDS: Ertapenem 1,000 MG in 0.9 % Sodium Chloride Mini Bag 100 ML IVPB SCH (08:22)
[2021-10-21] MEDS: Chlorhexidine Rinse 15 ML MOUTHWASH MM SCH ×2 (08:22→20:01)
[2021-10-21] MEDS: Pregabalin 75 MG CAPSULE GTUBE SCH ×2 (08:22→20:02)
[2021-10-21] MEDS: Pantoprazole 40 MG VIAL IVP SCH (08:23)
[2021-10-21] MEDS: Docusate Oral Soln 100 MG/10 ML UDC GTUBE SCH ×2 (08:24→20:01)
[2021-10-21] MEDS: D5% in Water 1,000 ML IVC SCH (10:30)
[2021-10-21 16:32] LABS: Lactate Dehydrogenase 236 Units/L (140-271); Total Protein 5.2 g/dL (6.4-8.9)
[2021-10-21 16:58] LABS: RBC,Pleural Fluid 405000 RBC/mcL
[2021-10-21] MEDS ORDERED: Clinimix E 5%-15% SOLUTION 2,000 ML, Amino Acids 10% 200 ML with MVI, adult with vita... IVC SCH (17:00)
[2021-10-21 18:01] LABS: Appearance of Pleural Fl Bloody (Clear)
[2021-10-21 18:03] LABS: Basophils,Pleural Fluid 0 %
[2021-10-21] MEDS: QUEtiapine Fumarate 25 MG TABLET PO SCH (20:02)
[2021-10-21] MEDS: *HR* Metoprolol 5 MG/5 ML VIAL IVP PRN (21:35)
[2021-10-21] MEDS ORDERED: *HR* Metoprolol 5 MG/5 ML VIAL IVP ONE (23:29)
[2021-10-22] MEDS: Insulin LISPRO 300 UNITS/3 ML VIAL SUBQ SCH ×4 (02:04→18:21)
[2021-10-22] MEDS: Levalbuterol Neb 1.25 MG/3 ML IH SCH ×6 (04:34→23:44)
[2021-10-22] MEDS: Acetylcysteine 10% 2 ML INHSOL IH SCH ×4 (04:34→20:22)
[2021-10-22] MEDS: *HR* Enoxaparin 120 MG/0.8 ML SYRINGE SQ SCH ×2 (05:19→18:12)
[2021-10-22 05:52] LABS: Basophils % 0.6 %; Eosinophils # 0.3 K/mcL (0.0-0.6); Eosinophils % 3.6 %; Hematocrit 23.2 % (37.5-50.1); Hemoglobin 6.8 g/dL (12.9-16.9); Immature Granulocytes % 0.6 % (0-4); Lymphocytes % 14.3 %; Mean Corpuscular HGB Conc 29.3 g/dL (31.6-35.5); Mean Corpuscular Hemoglobin 29.2 pg (28.0-33.3); Mean Corpuscular Volume 99.6 fL (83.0-100.0); Mean Platelet Volume 12.8 fL (9.4-12.4); Monocytes # 0.6 K/mcL (0.0-1.3); Monocytes % 8.1 %; Neutrophils # 5.3 K/mcL (1.6-8.9); Nucleated Red Blood Cells 0.3 /100 WBC (0); Platelet Count 170 K/mcL (140-400); Red Blood Count 2.33 M/mcL (4.19-5.50); Red Cell Distribution Width 15.9 % (11.5-14.5); Segmented Neutrophils % 72.8 %; White Blood Count 7.3 K/mcL (4.3-11.1)
[2021-10-22 06:03] LABS: INR 1.3; Prothrombin Time 14.5 Seconds (9.4-12.1)
[2021-10-22 06:10] LABS: Albumin 3.4 g/dL (3.5-5.7); Bilirubin,Direct 0.3 mg/dL (0.0-0.2); Bilirubin,Indirect 0.5 mg/dL (0.0-1.0); Bilirubin,Total 0.8 mg/dL (0.3-1.0); Calcium 9.6 mg/dL (8.6-10.3); Globulin 1.7 g/dL (2.4-3.5); Magnesium 2.3 mg/dL (1.6-2.6); Phosphorous 2.9 mg/dL (2.7-4.5); Potassium 4.5 mEq/L (3.5-5.1); Total Protein 5.1 g/dL (6.4-8.9)
[2021-10-22] MEDS: Potassium Chloride Elixir 20 MEQ/15 ML UDC PO SCH ×2 (09:27→21:14)
[2021-10-22] MEDS: Artificial Tears SOLN 15 ML BOTTLE BOTH EYES SCH ×4 (09:27→21:14)
[2021-10-22] MEDS: Nystatin SUSP 5 ML UD.LIQ PO SCH ×4 (09:27→21:14)
[2021-10-22] MEDS: Cholecalciferol (D-3) 1,000 UNIT (25MCG) TABLET PO SCH (09:27)
[2021-10-22] MEDS: Metoprolol XL (24 HR) Succ 25 MG TAB.ER.24H PO SCH (09:27)
[2021-10-22] MEDS: Aspirin 81 MG TAB.CHEW PO SCH (09:27)
[2021-10-22] MEDS: Pregabalin 75 MG CAPSULE GTUBE SCH ×2 (09:27→21:16)
[2021-10-22] MEDS: Fenofibrate 54 MG TABLET PO SCH (09:27)
[2021-10-22] MEDS: *HR* Amiodarone 200 MG TABLET PO SCH ×2 (09:27→21:15)
[2021-10-22] MEDS: Finasteride 5 MG TABLET PO SCH (09:27)
[2021-10-22] MEDS: Docusate Oral Soln 100 MG/10 ML UDC GTUBE SCH ×2 (09:27→21:00)
[2021-10-22] MEDS: Chlorhexidine Rinse 15 ML MOUTHWASH MM SCH ×2 (09:28→21:14)
[2021-10-22] MEDS: Saline Nasal Spray 44 ML BOTTLE NS SCH ×4 (09:28→18:11)
[2021-10-22] MEDS: Pantoprazole 40 MG VIAL IVP SCH (09:28)
[2021-10-22] MEDS: Ertapenem 1,000 MG in 0.9 % Sodium Chloride Mini Bag 100 ML IVPB SCH (09:50)
[2021-10-22] MEDS ORDERED: E-Z-PAQUE (BARIUM SULF) SUSP 1 BOTTLE PO ONE (13:00)
[2021-10-22] MEDS ORDERED: E-Z-HD (BARIUM SULF) SUSPENSION PO ONE (13:00)
[2021-10-22] MEDS ORDERED: Lidocaine Viscous Oral Soln 15 ML SOLUTION ONE (16:41)
[2021-10-22] MEDS ORDERED: [UNRECOGNIZED DRUG - NUTRITION] IVC SCH (17:00)
[2021-10-22 20:21] LABS: Hematocrit 25.4 % (37.5-50.1); Hemoglobin 7.7 g/dL (12.9-16.9)
[2021-10-22] MEDS ORDERED: Metoprolol XL (24 HR) Succ 25 MG TAB.ER.24H PO SCH (21:00)
[2021-10-22] MEDS: QUEtiapine Fumarate 25 MG TABLET PO SCH (21:16)
[2021-10-23] MEDS: Insulin LISPRO 300 UNITS/3 ML VIAL SUBQ SCH ×4 (00:58→17:44)
[2021-10-23] MEDS: Levalbuterol Neb 1.25 MG/3 ML IH SCH ×6 (04:00→23:43)
[2021-10-23] MEDS: Acetylcysteine 10% 2 ML INHSOL IH SCH ×4 (04:00→21:05)
[2021-10-23] MEDS: *HR* Enoxaparin 120 MG/0.8 ML SYRINGE SQ SCH ×2 (05:08→16:48)
[2021-10-23 05:11] LABS: Alanine Aminotransferase 17 Units/L (7-52); Albumin 3.1 g/dL (3.5-5.7); Albumin/Globulin Ratio 1.4 (1.1-2.2); Alkaline Phosphatase 26 Units/L (34-104); Aspartate Amino Transferase 27 Units/L (13-39); BUN/Creatinine Ratio 41 (6-26); Bilirubin,Total 0.7 mg/dL (0.3-1.0); Blood Urea Nitrogen 52 mg/dL (8-23); Calcium 9.7 mg/dL (8.6-10.3); Carbon Dioxide 26 mEq/L (23-29); Chloride 109 mEq/L (98-107); Globulin 2.2 g/dL (2.4-3.5); Glucose 293 mg/dL (70-105); Magnesium 2.4 mg/dL (1.6-2.6); Osmolality,Calculated 315 (280-300); Phosphorous 2.7 mg/dL (2.7-4.5); Sodium 140 mEq/L (136-145); Total Protein 5.3 g/dL (6.4-8.9); eGFR For African Americans > 60 (> 60); eGFR For Non-African Americans 58 (> 60)
[2021-10-23] MEDS: Saline Nasal Spray 44 ML BOTTLE NS SCH ×4 (08:35→21:52)
[2021-10-23] MEDS: Artificial Tears SOLN 15 ML BOTTLE BOTH EYES SCH ×4 (08:35→20:49)
[2021-10-23] MEDS: Cholecalciferol (D-3) 1,000 UNIT (25MCG) TABLET PO SCH (08:36)
[2021-10-23] MEDS: Insulin DETEMIR 100 UNIT/ML X5UNITS SUBQ SCH ×2 (08:36→21:00)
[2021-10-23] MEDS: Fenofibrate 54 MG TABLET PO SCH (08:36)
[2021-10-23] MEDS: Potassium Chloride Elixir 20 MEQ/15 ML UDC PO SCH (08:36)
[2021-10-23] MEDS: *HR* Amiodarone 200 MG TABLET PO SCH ×2 (08:36→20:48)
[2021-10-23] MEDS: Aspirin 81 MG TAB.CHEW PO SCH (08:37)
[2021-10-23] MEDS: Finasteride 5 MG TABLET PO SCH (08:37)
[2021-10-23] MEDS: Pregabalin 75 MG CAPSULE GTUBE SCH ×2 (08:37→20:49)
[2021-10-23] MEDS: Ertapenem 1,000 MG in 0.9 % Sodium Chloride Mini Bag 100 ML IVPB SCH (08:37)
[2021-10-23] MEDS: Chlorhexidine Rinse 15 ML MOUTHWASH MM SCH ×2 (08:38→20:47)
[2021-10-23] MEDS: Pantoprazole 40 MG VIAL IVP SCH (08:38)
[2021-10-23] MEDS: Docusate Oral Soln 100 MG/10 ML UDC GTUBE SCH ×2 (08:38→20:47)
[2021-10-23] MEDS: Nystatin SUSP 5 ML UD.LIQ PO SCH ×4 (08:38→20:47)
[2021-10-23 09:23] LABS: Hemoglobin 8.1 g/dL (12.9-16.9)
[2021-10-23] MEDS ORDERED: Amiodarone Premix 150 MG/100 ML BAG IVPB ONE (13:52)
[2021-10-23] MEDS ORDERED: Amiodarone Premix 360 MG/200 ML BAG IVC ONE (15:00)
[2021-10-23] MEDS: *HR* Metoprolol 5 MG/5 ML VIAL IVP SCH (16:35)
[2021-10-23] MEDS: Furosemide 20 MG/2 ML VIAL IVP SCH (16:36)
[2021-10-23] MEDS ORDERED: Clinimix E 5%-15% SOLUTION 2,000 ML, Amino Acids 10% 200 ML with MVI, adult with vita... IVC SCH (17:00)
[2021-10-23] MEDS: QUEtiapine Fumarate 25 MG TABLET PO SCH (20:49)
[2021-10-23] MEDS: Amiodarone Premix 360 MG/200 ML BAG IVC SCH (21:39)
[2021-10-24] MEDS: *HR* Metoprolol 5 MG/5 ML VIAL IVP SCH ×5 (00:07→23:49)
[2021-10-24] MEDS: Insulin LISPRO 300 UNITS/3 ML VIAL SUBQ SCH ×6 (00:14→23:48)
[2021-10-24] MEDS: Levalbuterol Neb 1.25 MG/3 ML IH SCH ×6 (03:25→23:53)
[2021-10-24] MEDS: Acetylcysteine 10% 2 ML INHSOL IH SCH ×4 (03:25→19:52)
[2021-10-24 04:47] LABS: Basophils # 0.1 K/mcL (0.0-0.2); Basophils % 0.6 %; Eosinophils # 0.4 K/mcL (0.0-0.6); Eosinophils % 4.4 %; Hematocrit 26.8 % (37.5-50.1); Hemoglobin 8.3 g/dL (12.9-16.9); Immature Granulocytes % 0.8 % (0-4); Lymphocytes # 0.9 K/mcL (0.6-4.6); Lymphocytes % 9.9 %; Mean Corpuscular Hemoglobin 29.9 pg (28.0-33.3); Mean Corpuscular Volume 96.4 fL (83.0-100.0); Monocytes # 0.6 K/mcL (0.0-1.3); Monocytes % 7.1 %; Platelet Count 175 K/mcL (140-400); Red Blood Count 2.78 M/mcL (4.19-5.50); Red Cell Distribution Width 16.5 % (11.5-14.5); Segmented Neutrophils % 77.2 %; White Blood Count 9.1 K/mcL (4.3-11.1)
[2021-10-24 04:59] LABS: Magnesium 2.2 mg/dL (1.6-2.6); Phosphorous 2.4 mg/dL (2.7-4.5)
[2021-10-24 05:02] LABS: Alanine Aminotransferase 20 Units/L (7-52); Albumin 3.2 g/dL (3.5-5.7); Albumin/Globulin Ratio 1.4 (1.1-2.2); Alkaline Phosphatase 28 Units/L (34-104); Aspartate Amino Transferase 29 Units/L (13-39); BUN/Creatinine Ratio 38 (6-26); Bilirubin,Total 0.7 mg/dL (0.3-1.0); Blood Urea Nitrogen 45 mg/dL (8-23); C-Reactive Protein 45 mg/L (Less than 10); Calcium 10.1 mg/dL (8.6-10.3); Carbon Dioxide 27 mEq/L (23-29); Chloride 108 mEq/L (98-107); Globulin 2.3 g/dL (2.4-3.5); Glucose 320 mg/dL (70-105); Osmolality,Calculated 310 (280-300); Potassium 5.3 mEq/L (3.5-5.1); Sodium 138 mEq/L (136-145); Total Protein 5.5 g/dL (6.4-8.9); eGFR For African Americans > 60 (> 60); eGFR For Non-African Americans > 60 (> 60)
[2021-10-24] MEDS: Nystatin SUSP 5 ML UD.LIQ PO SCH ×4 (08:02→19:53)
[2021-10-24] MEDS: Docusate Oral Soln 100 MG/10 ML UDC GTUBE SCH ×2 (08:02→19:49)
[2021-10-24] MEDS: Chlorhexidine Rinse 15 ML MOUTHWASH MM SCH ×2 (08:03→19:50)
[2021-10-24] MEDS: Cholecalciferol (D-3) 1,000 UNIT (25MCG) TABLET PO SCH (08:03)
[2021-10-24] MEDS: Fenofibrate 54 MG TABLET PO SCH (08:03)
[2021-10-24] MEDS: Finasteride 5 MG TABLET PO SCH (08:03)
[2021-10-24] MEDS: Aspirin 81 MG TAB.CHEW PO SCH (08:04)
[2021-10-24] MEDS: *HR* Amiodarone 200 MG TABLET PO SCH ×2 (08:04→19:53)
[2021-10-24] MEDS: Pregabalin 75 MG CAPSULE GTUBE SCH ×2 (08:04→19:50)
[2021-10-24] MEDS: Saline Nasal Spray 44 ML BOTTLE NS SCH ×4 (08:05→19:51)
[2021-10-24] MEDS: Furosemide 20 MG/2 ML VIAL IVP SCH ×2 (08:05→16:07)
[2021-10-24] MEDS: Artificial Tears SOLN 15 ML BOTTLE BOTH EYES SCH ×4 (08:05→19:51)
[2021-10-24] MEDS: Pantoprazole 40 MG VIAL IVP SCH (08:05)
[2021-10-24] MEDS: Ertapenem 1,000 MG in 0.9 % Sodium Chloride Mini Bag 100 ML IVPB SCH (08:45)
[2021-10-24] MEDS: Insulin DETEMIR 100 UNIT/ML X5UNITS SUBQ SCH ×2 (08:52→20:04)
[2021-10-24] MEDS ORDERED: *HR* Midazolam HCl 5 MG/5 ML VIAL IVP ONE ×2 (09:46→09:53)
[2021-10-24] MEDS ORDERED: Isovue-370 500 ML BOTTLE IVP ONE (09:53)
[2021-10-24 09:56] LABS: Cholesterol,Body Fluid 30 mg/dL; Fluid Source for Cholesterol PLEURAL FLUID
[2021-10-24 10:06] LABS: Fluid Source for Triglycerides PLEURAL FLUID; Triglycerides,Body Fluid 32 mg/dL
[2021-10-24] MEDS ORDERED: Lidocaine Viscous Oral Soln 15 ML SOLUTION ONE (10:06)
[2021-10-24] MEDS: FentaNYL (PF) 1,000 MCG/100 ML IV.SOLN IVC SCH ×2 (10:14→21:02)
[2021-10-24] MEDS: Dexmedetomidine HCl 400 MCG/100 ML MLS IVC SCH ×2 (10:23→23:30)
[2021-10-24 10:33] LABS: Red Cell Distribution Width 17.2 % (11.5-14.5)
[2021-10-24 10:34] LABS: Basophils # 0.1 K/mcL (0.0-0.2); Basophils % 0.9 %; Eosinophils # 0.2 K/mcL (0.0-0.6); Eosinophils % 2.1 %; Hematocrit 28.6 % (37.5-50.1); Hemoglobin 8.2 g/dL (12.9-16.9); Immature Granulocytes % 0.4 % (0-4); Immature Platelets 10.7 % (1.1-6.1); Lymphocytes # 0.8 K/mcL (0.6-4.6); Lymphocytes % 6.9 %; Mean Corpuscular HGB Conc 28.7 g/dL (31.6-35.5); Mean Corpuscular Hemoglobin 30.3 pg (28.0-33.3); Mean Corpuscular Volume 105.5 fL (83.0-100.0); Monocytes # 0.8 K/mcL (0.0-1.3); Neutrophils # 9.4 K/mcL (1.6-8.9); Platelet Count 169 K/mcL (140-400); Red Blood Count 2.71 M/mcL (4.19-5.50); Segmented Neutrophils % 82.7 %; White Blood Count 11.4 K/mcL (4.3-11.1)
[2021-10-24] MEDS: Amiodarone Premix 360 MG/200 ML BAG IVC SCH ×2 (13:01→19:48)
[2021-10-24] MEDS: Vancomycin 2,000 MG/520 ML IV.SOLN IVPB SCH (16:07)
[2021-10-24] MEDS ORDERED: AMINO ACIDS IV SCH (17:00)
[2021-10-24] MEDS ORDERED: [UNRECOGNIZED DRUG - OTHER] IV SCH (17:00)
[2021-10-24] MEDS ORDERED: CLINIMIX IV SCH (17:00)
[2021-10-24] MEDS: QUEtiapine Fumarate 25 MG TABLET PO SCH (19:50)
[2021-10-25] MEDS: Levalbuterol Neb 1.25 MG/3 ML IH SCH ×6 (03:24→23:39)
[2021-10-25] MEDS: Acetylcysteine 10% 2 ML INHSOL IH SCH ×4 (03:25→20:03)
[2021-10-25 03:41] LABS: VBG Ionized Calcium 1.49 mmol/L (1.15-1.35)
[2021-10-25 03:44] LABS: Basophils % 0.2 %; Eosinophils # 0.3 K/mcL (0.0-0.6); Hematocrit 24.9 % (37.5-50.1); Hemoglobin 7.3 g/dL (12.9-16.9); Immature Granulocytes % 0.5 % (0-4); Lymphocytes # 0.6 K/mcL (0.6-4.6); Lymphocytes % 6.7 %; Mean Corpuscular HGB Conc 29.3 g/dL (31.6-35.5); Mean Corpuscular Hemoglobin 29.4 pg (28.0-33.3); Mean Corpuscular Volume 100.4 fL (83.0-100.0); Monocytes # 0.7 K/mcL (0.0-1.3); Monocytes % 7.3 %; Neutrophils # 7.3 K/mcL (1.6-8.9); Platelet Count 153 K/mcL (140-400); Red Blood Count 2.48 M/mcL (4.19-5.50); Red Cell Distribution Width 16.7 % (11.5-14.5); Segmented Neutrophils % 82.3 %; White Blood Count 8.9 K/mcL (4.3-11.1)
[2021-10-25 03:57] LABS: Alanine Aminotransferase 17 Units/L (7-52); Albumin 2.9 g/dL (3.5-5.7); Albumin/Globulin Ratio 1.3 (1.1-2.2); Alkaline Phosphatase 25 Units/L (34-104); Aspartate Amino Transferase 19 Units/L (13-39); BUN/Creatinine Ratio 38 (6-26); Bilirubin,Direct 0.1 mg/dL (0.0-0.2); Bilirubin,Indirect 0.5 mg/dL (0.0-1.0); Bilirubin,Total 0.6 mg/dL (0.3-1.0); Blood Urea Nitrogen 53 mg/dL (8-23); Calcium 9.7 mg/dL (8.6-10.3); Carbon Dioxide 27 mEq/L (23-29); Chloride 106 mEq/L (98-107); Globulin 2.3 g/dL (2.4-3.5); Glucose 404 mg/dL (70-105); Magnesium 2.1 mg/dL (1.6-2.6); Osmolality,Calculated 313 (280-300); Phosphorous 4.6 mg/dL (2.7-4.5); Sodium 136 mEq/L (136-145); Total Protein 5.2 g/dL (6.4-8.9); eGFR For African Americans > 60 (> 60); eGFR For Non-African Americans 52 (> 60)
[2021-10-25] MEDS: Insulin LISPRO 300 UNITS/3 ML VIAL SUBQ SCH ×6 (04:32→23:24)
[2021-10-25 05:10] LABS: ABG Base Excess 2 mEq/L (-2 to 3); ABG HCO3 27 mEq/L (21-27); ABG Oxygen Saturation 96 % (95-98); ABG PCO2 44 mmHg (35-45); ABG PO2 85 mmHg (85-104); ABG TCO2 28 mEq/L (20-26); Blood Gas Modality ASSIST CONTROL; Blood Gas VT 400 cc
[2021-10-25] MEDS: *HR* Metoprolol 5 MG/5 ML VIAL IVP SCH (05:17)
[2021-10-25] MEDS: Amiodarone Premix 360 MG/200 ML BAG IVC SCH ×2 (06:45→18:07)
[2021-10-25] MEDS: FentaNYL (PF) 1,000 MCG/100 ML IV.SOLN IVC SCH (08:06)
[2021-10-25] MEDS: Furosemide 20 MG/2 ML VIAL IVP SCH ×2 (08:08→17:37)
[2021-10-25] MEDS: Saline Nasal Spray 44 ML BOTTLE NS SCH ×4 (08:09→19:35)
[2021-10-25] MEDS: Pantoprazole 40 MG VIAL IVP SCH (08:10)
[2021-10-25] MEDS: Artificial Tears SOLN 15 ML BOTTLE BOTH EYES SCH ×4 (08:10→19:35)
[2021-10-25] MEDS: Chlorhexidine Rinse 15 ML MOUTHWASH MM SCH ×2 (08:11→19:35)
[2021-10-25] MEDS: Fenofibrate 54 MG TABLET PO SCH (08:11)
[2021-10-25] MEDS: Docusate Oral Soln 100 MG/10 ML UDC GTUBE SCH ×2 (08:11→19:35)
[2021-10-25] MEDS: Cholecalciferol (D-3) 1,000 UNIT (25MCG) TABLET PO SCH (08:11)
[2021-10-25] MEDS: Pregabalin 75 MG CAPSULE GTUBE SCH ×2 (08:11→19:34)
[2021-10-25] MEDS: Nystatin SUSP 5 ML UD.LIQ PO SCH ×4 (08:11→19:34)
[2021-10-25] MEDS: Aspirin 81 MG TAB.CHEW PO SCH (08:13)
[2021-10-25] MEDS: *HR* Amiodarone 200 MG TABLET PO SCH ×2 (08:13→19:34)
[2021-10-25] MEDS: Finasteride 5 MG TABLET PO SCH (08:13)
[2021-10-25] MEDS: Insulin DETEMIR 100 UNIT/ML X5UNITS SUBQ SCH ×2 (10:12→19:35)
[2021-10-25] MEDS: Dexmedetomidine HCl 400 MCG/100 ML MLS IVC SCH ×2 (10:29→18:06)
[2021-10-25] MEDS ORDERED: *HR* Midazolam HCl 5 MG/5 ML VIAL IVP ONE (11:25)
[2021-10-25] MEDS ORDERED: D10% in Water 500 ML IVC PRN (13:05)
[2021-10-25] MEDS: Vancomycin 2,000 MG/520 ML IV.SOLN IVPB SCH (17:00)
[2021-10-25] MEDS ORDERED: Clinimix 5%-20% SOLUTION 2,000 ML, Amino Acids 10% 200 ML with MVI, adult with vitami... IV SCH (17:00)
[2021-10-25] MEDS ORDERED: Clinimix 5%-20% SOLUTION 2,000 ML with Amino Acids 10% 0 ML, MVI, adult with vitamin ... IV SCH ×3 (17:00)
[2021-10-25] MEDS: *HR* Enoxaparin 120 MG/0.8 ML SYRINGE SQ SCH (17:37)
[2021-10-25] MEDS: QUEtiapine Fumarate 25 MG TABLET PO SCH (19:34)
[2021-10-26] MEDS: Dexmedetomidine HCl 400 MCG/100 ML MLS IVC SCH ×2 (02:30→20:00)
[2021-10-26] MEDS: Levalbuterol Neb 1.25 MG/3 ML IH SCH ×6 (03:46→23:26)
[2021-10-26] MEDS: Acetylcysteine 10% 2 ML INHSOL IH SCH ×4 (03:46→20:03)
[2021-10-26 04:11] LABS: VBG Ionized Calcium 1.42 mmol/L (1.15-1.35)
[2021-10-26 04:13] LABS: Basophils # 0.1 K/mcL (0.0-0.2); Basophils % 0.7 %; Eosinophils # 0.5 K/mcL (0.0-0.6); Hematocrit 22.1 % (37.5-50.1); Hemoglobin 6.7 g/dL (12.9-16.9); Immature Granulocytes % 0.4 % (0-4); Lymphocytes % 12.6 %; Mean Corpuscular HGB Conc 30.3 g/dL (31.6-35.5); Mean Corpuscular Hemoglobin 29.9 pg (28.0-33.3); Mean Corpuscular Volume 98.7 fL (83.0-100.0); Mean Platelet Volume 12.9 fL (9.4-12.4); Monocytes # 0.7 K/mcL (0.0-1.3); Monocytes % 8.5 %; Neutrophils # 5.5 K/mcL (1.6-8.9); Platelet Count 162 K/mcL (140-400); Red Blood Count 2.24 M/mcL (4.19-5.50); Red Cell Distribution Width 16.8 % (11.5-14.5); Segmented Neutrophils % 71.8 %; White Blood Count 7.7 K/mcL (4.3-11.1)
[2021-10-26 04:28] LABS: Albumin 2.7 g/dL (3.5-5.7); Albumin/Globulin Ratio 1.2 (1.1-2.2); Bilirubin,Direct 0.2 mg/dL (0.0-0.2); Bilirubin,Indirect 0.4 mg/dL (0.0-1.0); Bilirubin,Total 0.6 mg/dL (0.3-1.0); Calcium 9.5 mg/dL (8.6-10.3); Globulin 2.3 g/dL (2.4-3.5); Magnesium 2.1 mg/dL (1.6-2.6); Phosphorous 3.8 mg/dL (2.7-4.5); Potassium 4.6 mEq/L (3.5-5.1)
[2021-10-26 04:36] LABS: ABG Base Excess -1 mEq/L (-2 to 3); ABG HCO3 22 mEq/L (21-27); ABG Oxygen Saturation 95 % (95-98); ABG PCO2 29 mmHg (35-45); ABG PH 7.49 pH Units (7.32-7.45); ABG PO2 68 mmHg (85-104); ABG TCO2 23 mEq/L (20-26); Blood Gas VT 400 cc
[2021-10-26] MEDS: Insulin LISPRO 300 UNITS/3 ML VIAL SUBQ SCH ×6 (04:42→23:53)
[2021-10-26] MEDS: Amiodarone Premix 360 MG/200 ML BAG IVC SCH ×2 (04:42→16:02)
[2021-10-26] MEDS: *HR* Enoxaparin 120 MG/0.8 ML SYRINGE SQ SCH ×2 (06:11→17:05)
[2021-10-26] MEDS: Docusate Oral Soln 100 MG/10 ML UDC GTUBE SCH ×2 (08:21→19:57)
[2021-10-26] MEDS: Chlorhexidine Rinse 15 ML MOUTHWASH MM SCH ×2 (08:21→19:57)
[2021-10-26] MEDS: Pantoprazole 40 MG VIAL IVP SCH (08:21)
[2021-10-26] MEDS: Nystatin SUSP 5 ML UD.LIQ PO SCH ×4 (08:21→20:11)
[2021-10-26] MEDS: Pregabalin 75 MG CAPSULE GTUBE SCH ×2 (08:22→19:57)
[2021-10-26] MEDS: Aspirin 81 MG TAB.CHEW PO SCH (08:22)
[2021-10-26] MEDS: Cholecalciferol (D-3) 1,000 UNIT (25MCG) TABLET PO SCH (08:22)
[2021-10-26] MEDS: Furosemide 20 MG/2 ML VIAL IVP SCH (08:22)
[2021-10-26] MEDS: *HR* Amiodarone 200 MG TABLET PO SCH ×2 (08:22→19:58)
[2021-10-26] MEDS: Finasteride 5 MG TABLET PO SCH (08:22)
[2021-10-26] MEDS: Fenofibrate 54 MG TABLET PO SCH (08:23)
[2021-10-26] MEDS: Artificial Tears SOLN 15 ML BOTTLE BOTH EYES SCH ×4 (08:24→19:59)
[2021-10-26] MEDS: Saline Nasal Spray 44 ML BOTTLE NS SCH ×4 (08:24→20:00)
[2021-10-26] MEDS: Insulin DETEMIR 100 UNIT/ML X5UNITS SUBQ SCH ×2 (08:48→19:58)
[2021-10-26] MEDS ORDERED: Furosemide 20 MG/2 ML VIAL IVP ONE (12:39)
[2021-10-26] MEDS ORDERED: 0.9 % Sodium Chloride 250 ML ONE (15:27)
[2021-10-26] MEDS: Vancomycin 2,000 MG/520 ML IV.SOLN IVPB SCH (16:56)
[2021-10-26] MEDS ORDERED: CLINIMIX IVPB SCH (17:00)
[2021-10-26] MEDS ORDERED: AMINO ACIDS IVPB SCH (17:00)
[2021-10-26] MEDS ORDERED: [UNRECOGNIZED DRUG - OTHER] IVPB SCH (17:00)
[2021-10-26] MEDS: QUEtiapine Fumarate 25 MG TABLET PO SCH (19:57)
[2021-10-26 21:11] LABS: Hematocrit 25.6 % (37.5-50.1); Hemoglobin 7.5 g/dL (12.9-16.9)
[2021-10-26] MEDS: FentaNYL (PF) 1,000 MCG/100 ML IV.SOLN IVC SCH (23:15)
[2021-10-27] MEDS: Dexmedetomidine HCl 400 MCG/100 ML MLS IVC SCH ×6 (00:50→23:00)
[2021-10-27] MEDS: Levalbuterol Neb 1.25 MG/3 ML IH SCH ×6 (03:47→23:29)
[2021-10-27] MEDS: Acetylcysteine 10% 2 ML INHSOL IH SCH ×4 (03:47→19:56)
[2021-10-27] MEDS: Amiodarone Premix 360 MG/200 ML BAG IVC SCH ×2 (03:50→12:45)
[2021-10-27] MEDS: Insulin LISPRO 300 UNITS/3 ML VIAL SUBQ SCH ×5 (04:01→20:51)
[2021-10-27] MEDS: *HR* Enoxaparin 120 MG/0.8 ML SYRINGE SQ SCH ×2 (04:02→17:15)
[2021-10-27 04:32] LABS: ABG Base Excess -2 mEq/L (-2 to 3); ABG HCO3 23 mEq/L (21-27); ABG Oxygen Saturation 95 % (95-98); ABG PCO2 37 mmHg (35-45); ABG PO2 76 mmHg (85-104); ABG TCO2 24 mEq/L (20-26); Blood Gas VT 400 cc
[2021-10-27 04:56] LABS: Basophils # 0.1 K/mcL (0.0-0.2); Basophils % 1.4 %; Eosinophils # 0.5 K/mcL (0.0-0.6); Eosinophils % 9.3 %; Hematocrit 25.5 % (37.5-50.1); Hemoglobin 7.6 g/dL (12.9-16.9); Immature Granulocytes % 0.8 % (0-4); Lymphocytes # 0.5 K/mcL (0.6-4.6); Lymphocytes % 9.3 %; Mean Corpuscular HGB Conc 29.8 g/dL (31.6-35.5); Mean Corpuscular Hemoglobin 30.9 pg (28.0-33.3); Mean Corpuscular Volume 103.7 fL (83.0-100.0); Mean Platelet Volume 12.7 fL (9.4-12.4); Monocytes # 0.3 K/mcL (0.0-1.3); Monocytes % 6.1 %; Neutrophils # 3.6 K/mcL (1.6-8.9); Platelet Count 180 K/mcL (140-400); Red Blood Count 2.46 M/mcL (4.19-5.50); Red Cell Distribution Width 17.2 % (11.5-14.5); Segmented Neutrophils % 73.1 %; White Blood Count 4.9 K/mcL (4.3-11.1)
[2021-10-27 04:59] LABS: VBG Ionized Calcium 1.42 mmol/L (1.15-1.35)
[2021-10-27 06:38] LABS: Albumin 2.7 g/dL (3.5-5.7); Albumin/Globulin Ratio 1.3 (1.1-2.2); Bilirubin,Direct 0.2 mg/dL (0.0-0.2); Bilirubin,Indirect 0.4 mg/dL (0.0-1.0); Bilirubin,Total 0.6 mg/dL (0.3-1.0); Calcium 9.6 mg/dL (8.6-10.3); Globulin 2.1 g/dL (2.4-3.5); Magnesium 2.2 mg/dL (1.6-2.6); Phosphorous 3.1 mg/dL (2.7-4.5); Potassium 4.3 mEq/L (3.5-5.1); Total Protein 4.8 g/dL (6.4-8.9)
[2021-10-27 08:32] LABS: Hematocrit 24.2 % (37.5-50.1); Hemoglobin 6.8 g/dL (12.9-16.9)
[2021-10-27] MEDS: Artificial Tears SOLN 15 ML BOTTLE BOTH EYES SCH ×4 (09:35→20:53)
[2021-10-27] MEDS: Saline Nasal Spray 44 ML BOTTLE NS SCH ×4 (09:35→20:52)
[2021-10-27] MEDS: Nystatin SUSP 5 ML UD.LIQ PO SCH ×4 (09:36→20:49)
[2021-10-27] MEDS: *HR* Amiodarone 200 MG TABLET PO SCH ×2 (09:36→20:50)
[2021-10-27] MEDS: Pantoprazole 40 MG VIAL IVP SCH (09:36)
[2021-10-27] MEDS: Fenofibrate 54 MG TABLET PO SCH (09:36)
[2021-10-27] MEDS: Docusate Oral Soln 100 MG/10 ML UDC GTUBE SCH ×2 (09:36→20:49)
[2021-10-27] MEDS: Chlorhexidine Rinse 15 ML MOUTHWASH MM SCH ×2 (09:36→20:56)
[2021-10-27] MEDS: Finasteride 5 MG TABLET PO SCH (09:37)
[2021-10-27] MEDS: Cholecalciferol (D-3) 1,000 UNIT (25MCG) TABLET PO SCH (09:37)
[2021-10-27] MEDS: Aspirin 81 MG TAB.CHEW PO SCH (09:37)
[2021-10-27] MEDS: Insulin DETEMIR 100 UNIT/ML X5UNITS SUBQ SCH ×2 (09:38→20:51)
[2021-10-27] MEDS: Pregabalin 75 MG CAPSULE GTUBE SCH ×2 (09:38→20:50)
[2021-10-27 13:00] LABS: Hematocrit 24.3 % (37.5-50.1); Hemoglobin 6.9 g/dL (12.9-16.9)
[2021-10-27] MEDS ORDERED: AMINO ACIDS IVPB SCH (17:00)
[2021-10-27] MEDS ORDERED: [UNRECOGNIZED DRUG - OTHER] IVPB SCH (17:00)
[2021-10-27] MEDS ORDERED: CLINIMIX IVPB SCH (17:00)
[2021-10-27] MEDS: Vancomycin 2,000 MG/520 ML IV.SOLN IVPB SCH (17:17)
[2021-10-27] MEDS ORDERED: 0.9 % Sodium Chloride 250 ML ONE (18:12)
[2021-10-27] MEDS: QUEtiapine Fumarate 25 MG TABLET PO SCH (20:50)
[2021-10-28] MEDS: Amiodarone Premix 360 MG/200 ML BAG IVC SCH (00:24)
[2021-10-28] MEDS: Insulin LISPRO 300 UNITS/3 ML VIAL SUBQ SCH ×6 (00:25→21:14)
[2021-10-28 01:20] LABS: Hematocrit 27.4 % (37.5-50.1)
[2021-10-28 01:25] LABS: Hemoglobin 8.7 g/dL (12.9-16.9)
[2021-10-28] MEDS: Levalbuterol Neb 1.25 MG/3 ML IH SCH ×5 (03:39→20:30)
[2021-10-28] MEDS: Acetylcysteine 10% 2 ML INHSOL IH SCH ×4 (03:39→20:30)
[2021-10-28] MEDS: Dexmedetomidine HCl 400 MCG/100 ML MLS IVC SCH (04:03)
[2021-10-28 04:35] LABS: Basophils # 0.1 K/mcL (0.0-0.2); Basophils % 1.2 %; Eosinophils # 0.4 K/mcL (0.0-0.6); Eosinophils % 10.5 %; Hematocrit 27.9 % (37.5-50.1); Hemoglobin 8.9 g/dL (12.9-16.9); Immature Granulocytes % 0.7 % (0-4); Lymphocytes # 0.6 K/mcL (0.6-4.6); Lymphocytes % 14.7 %; Mean Corpuscular HGB Conc 31.9 g/dL (31.6-35.5); Mean Corpuscular Hemoglobin 29.9 pg (28.0-33.3); Mean Platelet Volume 12.3 fL (9.4-12.4); Monocytes # 0.3 K/mcL (0.0-1.3); Monocytes % 8.3 %; Neutrophils # 2.6 K/mcL (1.6-8.9); Platelet Count 199 K/mcL (140-400); Red Blood Count 2.98 M/mcL (4.19-5.50); Red Cell Distribution Width 15.8 % (11.5-14.5); Segmented Neutrophils % 64.6 %; White Blood Count 4.1 K/mcL (4.3-11.1)
[2021-10-28 04:38] LABS: Mean Corpuscular Volume 93.6 fL (83.0-100.0)
[2021-10-28 04:54] LABS: Alanine Aminotransferase 19 Units/L (7-52); Albumin 2.6 g/dL (3.5-5.7); Albumin/Globulin Ratio 1.1 (1.1-2.2); Alkaline Phosphatase 33 Units/L (34-104); Aspartate Amino Transferase 20 Units/L (13-39); BUN/Creatinine Ratio 50 (6-26); Bilirubin,Total 0.7 mg/dL (0.3-1.0); Blood Urea Nitrogen 66 mg/dL (8-23); Calcium 9.5 mg/dL (8.6-10.3); Carbon Dioxide 24 mEq/L (23-29); Chloride 103 mEq/L (98-107); Globulin 2.4 g/dL (2.4-3.5); Glucose 314 mg/dL (70-105); Osmolality,Calculated 305 (280-300); Potassium 4.2 mEq/L (3.5-5.1); Sodium 132 mEq/L (136-145); eGFR For African Americans > 60 (> 60); eGFR For Non-African Americans 55 (> 60)
[2021-10-28 04:55] LABS: Albumin 2.6 g/dL (3.5-5.7); Albumin/Globulin Ratio 1.1 (1.1-2.2); Bilirubin,Direct 0.2 mg/dL (0.0-0.2); Bilirubin,Indirect 0.5 mg/dL (0.0-1.0); Bilirubin,Total 0.7 mg/dL (0.3-1.0); Globulin 2.4 g/dL (2.4-3.5); Magnesium 2.1 mg/dL (1.6-2.6); Phosphorous 2.5 mg/dL (2.7-4.5)
[2021-10-28] MEDS: *HR* Enoxaparin 120 MG/0.8 ML SYRINGE SQ SCH ×2 (05:14→18:14)
[2021-10-28] MEDS: FentaNYL (PF) 1,000 MCG/100 ML IV.SOLN IVC SCH ×2 (05:55→14:02)
[2021-10-28] MEDS ORDERED: Insulin DETEMIR 100 UNIT/ML X5UNITS SUBQ ONE (09:30)
[2021-10-28] MEDS: Finasteride 5 MG TABLET PO SCH (09:30)
[2021-10-28] MEDS: *HR* Amiodarone 200 MG TABLET PO SCH ×2 (09:30→21:21)
[2021-10-28] MEDS: Cholecalciferol (D-3) 1,000 UNIT (25MCG) TABLET PO SCH (09:30)
[2021-10-28] MEDS: Fenofibrate 54 MG TABLET PO SCH (09:31)
[2021-10-28] MEDS: Pregabalin 75 MG CAPSULE GTUBE SCH ×2 (09:31→21:20)
[2021-10-28] MEDS: Docusate Oral Soln 100 MG/10 ML UDC GTUBE SCH ×2 (09:32→21:15)
[2021-10-28] MEDS: Nystatin SUSP 5 ML UD.LIQ PO SCH ×4 (09:32→21:20)
[2021-10-28] MEDS: Chlorhexidine Rinse 15 ML MOUTHWASH MM SCH ×2 (09:32→21:15)
[2021-10-28] MEDS: Pantoprazole 40 MG VIAL IVP SCH (09:33)
[2021-10-28] MEDS: Artificial Tears SOLN 15 ML BOTTLE BOTH EYES SCH ×4 (09:34→21:13)
[2021-10-28] MEDS: Saline Nasal Spray 44 ML BOTTLE NS SCH ×4 (09:34→21:12)
[2021-10-28] MEDS: Insulin DETEMIR 100 UNIT/ML X5UNITS SUBQ SCH ×2 (09:35→21:22)
[2021-10-28] MEDS: Aspirin 81 MG TAB.CHEW PO SCH (09:36)
[2021-10-28 13:34] LABS: Hematocrit 28.9 % (37.5-50.1); Hemoglobin 9.2 g/dL (12.9-16.9)
[2021-10-28 13:39] LABS: VBG HCO3 22 mEq/L (21-27); VBG Ionized Calcium 1.39 mmol/L (1.15-1.35); VBG PCO2 37 mmHg (41-51); VBG PH 7.38 pH Units (7.32-7.42); VBG PO2 81 mmHg (25-50)
[2021-10-28] MEDS ORDERED: Metoclopramide 10 MG/2 ML VIAL IVP ONE (15:10)
[2021-10-28] MEDS ORDERED: Clinimix E 5%-15% SOLUTION 2,000 ML, Amino Acids 10% 200 ML with MVI, adult with vita... IVC SCH (17:00)
[2021-10-28] MEDS: QUEtiapine Fumarate 25 MG TABLET PO SCH (21:21)
[2021-10-29] MEDS: Levalbuterol Neb 1.25 MG/3 ML IH SCH ×6 (00:07→20:04)
[2021-10-29] MEDS: Insulin LISPRO 300 UNITS/3 ML VIAL SUBQ SCH ×7 (00:45→21:30)
[2021-10-29 04:01] LABS: VBG Ionized Calcium 1.48 mmol/L (1.15-1.35)
[2021-10-29 04:15] LABS: Basophils % 0.6 %; Eosinophils # 0.5 K/mcL (0.0-0.6); Eosinophils % 11.4 %; Hematocrit 30.9 % (37.5-50.1); Hemoglobin 9.6 g/dL (12.9-16.9); Immature Granulocytes % 1.1 % (0-4); Lymphocytes # 0.6 K/mcL (0.6-4.6); Lymphocytes % 12.9 %; Mean Corpuscular HGB Conc 31.1 g/dL (31.6-35.5); Mean Corpuscular Hemoglobin 29.2 pg (28.0-33.3); Mean Corpuscular Volume 93.9 fL (83.0-100.0); Mean Platelet Volume 11.9 fL (9.4-12.4); Monocytes # 0.5 K/mcL (0.0-1.3); Monocytes % 10.6 %; Neutrophils # 2.9 K/mcL (1.6-8.9); Platelet Count 216 K/mcL (140-400); Red Blood Count 3.29 M/mcL (4.19-5.50); Segmented Neutrophils % 63.4 %; White Blood Count 4.6 K/mcL (4.3-11.1)
[2021-10-29 04:26] LABS: BUN/Creatinine Ratio 48 (6-26); Blood Urea Nitrogen 49 mg/dL (8-23); Calcium 9.9 mg/dL (8.6-10.3); Carbon Dioxide 26 mEq/L (23-29); Chloride 104 mEq/L (98-107); Glucose 211 mg/dL (70-105); Magnesium 2.1 mg/dL (1.6-2.6); Osmolality,Calculated 299 (280-300); Phosphorous 1.9 mg/dL (2.7-4.5); Potassium 3.6 mEq/L (3.5-5.1); Sodium 135 mEq/L (136-145); eGFR For African Americans > 60 (> 60); eGFR For Non-African Americans > 60 (> 60)
[2021-10-29] MEDS: Acetylcysteine 10% 2 ML INHSOL IH SCH ×4 (04:55→20:05)
[2021-10-29] MEDS: *HR* Enoxaparin 120 MG/0.8 ML SYRINGE SQ SCH ×2 (06:39→17:10)
[2021-10-29 07:22] LABS: INR 1.3; Prothrombin Time 14.2 Seconds (9.4-12.1)
[2021-10-29] MEDS: Nystatin SUSP 5 ML UD.LIQ PO SCH ×4 (08:12→21:26)
[2021-10-29] MEDS: Pantoprazole 40 MG VIAL IVP SCH (08:12)
[2021-10-29] MEDS: Chlorhexidine Rinse 15 ML MOUTHWASH MM SCH ×2 (08:12→21:26)
[2021-10-29] MEDS: Fenofibrate 54 MG TABLET PO SCH (08:13)
[2021-10-29] MEDS: *HR* Amiodarone 200 MG TABLET PO SCH ×2 (08:13→21:27)
[2021-10-29] MEDS: Cholecalciferol (D-3) 1,000 UNIT (25MCG) TABLET PO SCH (08:13)
[2021-10-29] MEDS: Pregabalin 75 MG CAPSULE GTUBE SCH ×2 (08:13→21:27)
[2021-10-29] MEDS: Insulin DETEMIR 100 UNIT/ML X5UNITS SUBQ SCH ×2 (08:13→21:27)
[2021-10-29] MEDS: Aspirin 81 MG TAB.CHEW PO SCH (08:14)
[2021-10-29] MEDS: Finasteride 5 MG TABLET PO SCH (08:15)
[2021-10-29] MEDS: FentaNYL (PF) 1,000 MCG/100 ML IV.SOLN IVC SCH (08:16)
[2021-10-29] MEDS: Docusate Oral Soln 100 MG/10 ML UDC GTUBE SCH ×2 (08:16→21:26)
[2021-10-29] MEDS: Artificial Tears SOLN 15 ML BOTTLE BOTH EYES SCH ×4 (08:16→20:46)
[2021-10-29] MEDS: Saline Nasal Spray 44 ML BOTTLE NS SCH ×4 (08:16→20:46)
[2021-10-29] MEDS ORDERED: Potassium Chloride Elixir 20 MEQ/15 ML UDC GTUBE ONE (08:25)
[2021-10-29] MEDS ORDERED: Furosemide 40 MG/4 ML VIAL IVP ONE (10:43)
[2021-10-29 13:48] LABS: Phosphorous 2.3 mg/dL (2.7-4.5); Potassium 4.1 mEq/L (3.5-5.1)
[2021-10-29] MEDS ORDERED: *HR* Midazolam HCl 5 MG/5 ML VIAL IVP ONE (14:22)
[2021-10-29] MEDS ORDERED: Lidocaine -MPF 1% 5 ML AMPUL ONE (14:27)
[2021-10-29] MEDS ORDERED: [UNRECOGNIZED DRUG - NUTRITION] IVC SCH (17:00)
[2021-10-29] MEDS: QUEtiapine Fumarate 25 MG TABLET PO SCH (21:27)
[2021-10-30] MEDS: Levalbuterol Neb 1.25 MG/3 ML IH SCH ×7 (00:21→23:39)
[2021-10-30] MEDS: Insulin LISPRO 300 UNITS/3 ML VIAL SUBQ SCH ×7 (00:37→23:51)
[2021-10-30] MEDS: Acetylcysteine 10% 2 ML INHSOL IH SCH ×2 (04:06→08:10)
[2021-10-30 05:00] LABS: Basophils % 0.9 %; Eosinophils # 0.4 K/mcL (0.0-0.6); Eosinophils % 9.8 %; Hematocrit 31.4 % (37.5-50.1); Hemoglobin 9.8 g/dL (12.9-16.9); Immature Granulocytes % 1.1 % (0-4); Lymphocytes # 0.8 K/mcL (0.6-4.6); Lymphocytes % 17.1 %; Mean Corpuscular HGB Conc 31.2 g/dL (31.6-35.5); Mean Corpuscular Hemoglobin 29.8 pg (28.0-33.3); Mean Corpuscular Volume 95.4 fL (83.0-100.0); Mean Platelet Volume 11.8 fL (9.4-12.4); Monocytes # 0.5 K/mcL (0.0-1.3); Monocytes % 11.8 %; Neutrophils # 2.6 K/mcL (1.6-8.9); Platelet Count 211 K/mcL (140-400); Red Blood Count 3.29 M/mcL (4.19-5.50); Red Cell Distribution Width 16.2 % (11.5-14.5); Segmented Neutrophils % 59.3 %; White Blood Count 4.4 K/mcL (4.3-11.1)
[2021-10-30 05:01] LABS: VBG Ionized Calcium 1.47 mmol/L (1.15-1.35)
[2021-10-30 05:16] LABS: BUN/Creatinine Ratio 46 (6-26); Blood Urea Nitrogen 42 mg/dL (8-23); Calcium 10.1 mg/dL (8.6-10.3); Carbon Dioxide 29 mEq/L (23-29); Chloride 106 mEq/L (98-107); Glucose 223 mg/dL (70-105); Magnesium 2.1 mg/dL (1.6-2.6); Osmolality,Calculated 305 (280-300); Phosphorous 2.3 mg/dL (2.7-4.5); Potassium 3.8 mEq/L (3.5-5.1); Sodium 139 mEq/L (136-145); eGFR For African Americans > 60 (> 60); eGFR For Non-African Americans > 60 (> 60)
[2021-10-30] MEDS: *HR* Enoxaparin 120 MG/0.8 ML SYRINGE SQ SCH ×2 (05:58→17:08)
[2021-10-30] MEDS ORDERED: Potassium Chloride Elixir 20 MEQ/15 ML UDC GTUBE ONE (07:38)
[2021-10-30] MEDS: Cholecalciferol (D-3) 1,000 UNIT (25MCG) TABLET PO SCH (07:43)
[2021-10-30] MEDS: Aspirin 81 MG TAB.CHEW PO SCH (07:43)
[2021-10-30] MEDS: Chlorhexidine Rinse 15 ML MOUTHWASH MM SCH ×2 (07:43→20:21)
[2021-10-30] MEDS: Pregabalin 75 MG CAPSULE GTUBE SCH ×2 (07:43→20:21)
[2021-10-30] MEDS: *HR* Amiodarone 200 MG TABLET PO SCH ×2 (07:43→20:21)
[2021-10-30] MEDS: Pantoprazole 40 MG VIAL IVP SCH (07:43)
[2021-10-30] MEDS: Finasteride 5 MG TABLET PO SCH (07:43)
[2021-10-30] MEDS: Fenofibrate 54 MG TABLET PO SCH (07:44)
[2021-10-30] MEDS: Insulin DETEMIR 100 UNIT/ML X5UNITS SUBQ SCH ×2 (07:45→20:30)
[2021-10-30] MEDS: Saline Nasal Spray 44 ML BOTTLE NS SCH ×4 (07:48→20:18)
[2021-10-30] MEDS: Artificial Tears SOLN 15 ML BOTTLE BOTH EYES SCH ×2 (07:48→11:01)
[2021-10-30] MEDS: Docusate Oral Soln 100 MG/10 ML UDC GTUBE SCH ×2 (07:48→20:21)
[2021-10-30] MEDS: Nystatin SUSP 5 ML UD.LIQ PO SCH ×2 (07:48→11:02)
[2021-10-30] MEDS ORDERED: Furosemide 40 MG/4 ML VIAL IVP ONE (10:14)
[2021-10-30] MEDS: QUEtiapine Fumarate 25 MG TABLET PO SCH (20:21)
[2021-10-31] MEDS: Insulin LISPRO 300 UNITS/3 ML VIAL SUBQ SCH ×5 (04:06→23:40)
[2021-10-31 04:18] LABS: VBG Ionized Calcium 1.53 mmol/L (1.15-1.35)
[2021-10-31 04:22] LABS: Basophils # 0.1 K/mcL (0.0-0.2); Basophils % 1.4 %; Eosinophils # 0.5 K/mcL (0.0-0.6); Eosinophils % 10.4 %; Hematocrit 30.3 % (37.5-50.1); Hemoglobin 9.2 g/dL (12.9-16.9); Immature Granulocytes % 1.4 % (0-4); Lymphocytes # 0.9 K/mcL (0.6-4.6); Lymphocytes % 19.4 %; Mean Corpuscular HGB Conc 30.4 g/dL (31.6-35.5); Mean Corpuscular Hemoglobin 29.1 pg (28.0-33.3); Mean Corpuscular Volume 95.9 fL (83.0-100.0); Mean Platelet Volume 11.7 fL (9.4-12.4); Monocytes # 0.6 K/mcL (0.0-1.3); Monocytes % 12.4 %; Neutrophils # 2.5 K/mcL (1.6-8.9); Platelet Count 216 K/mcL (140-400); Red Blood Count 3.16 M/mcL (4.19-5.50); Red Cell Distribution Width 16.7 % (11.5-14.5); White Blood Count 4.4 K/mcL (4.3-11.1)
[2021-10-31] MEDS: Levalbuterol Neb 1.25 MG/3 ML IH SCH ×5 (04:27→19:52)
[2021-10-31 04:37] LABS: BUN/Creatinine Ratio 44 (6-26); Blood Urea Nitrogen 40 mg/dL (8-23); Calcium 9.9 mg/dL (8.6-10.3); Carbon Dioxide 31 mEq/L (23-29); Chloride 106 mEq/L (98-107); Glucose 137 mg/dL (70-105); Osmolality,Calculated 302 (280-300); Phosphorous 2.2 mg/dL (2.7-4.5); Potassium 4.5 mEq/L (3.5-5.1); Sodium 140 mEq/L (136-145); eGFR For African Americans > 60 (> 60); eGFR For Non-African Americans > 60 (> 60)
[2021-10-31] MEDS: *HR* Enoxaparin 120 MG/0.8 ML SYRINGE SQ SCH ×2 (05:28→18:28)
[2021-10-31] MEDS: Docusate Oral Soln 100 MG/10 ML UDC GTUBE SCH ×2 (08:22→20:12)
[2021-10-31] MEDS: Saline Nasal Spray 44 ML BOTTLE NS SCH ×4 (08:30→19:42)
[2021-10-31] MEDS: Finasteride 5 MG TABLET PO SCH (08:30)
[2021-10-31] MEDS: Aspirin 81 MG TAB.CHEW PO SCH (08:31)
[2021-10-31] MEDS: Cholecalciferol (D-3) 1,000 UNIT (25MCG) TABLET PO SCH (08:31)
[2021-10-31] MEDS: Fenofibrate 54 MG TABLET PO SCH (08:31)
[2021-10-31] MEDS: Pregabalin 75 MG CAPSULE GTUBE SCH ×2 (08:31→20:12)
[2021-10-31] MEDS: *HR* Amiodarone 200 MG TABLET PO SCH ×2 (08:31→20:12)
[2021-10-31] MEDS: Chlorhexidine Rinse 15 ML MOUTHWASH MM SCH ×2 (08:31→20:12)
[2021-10-31] MEDS: Insulin DETEMIR 100 UNIT/ML X5UNITS SUBQ SCH ×2 (08:33→20:12)
[2021-10-31] MEDS: Furosemide 40 MG/4 ML VIAL IVP SCH (12:14)
[2021-10-31] MEDS: QUEtiapine Fumarate 25 MG TABLET PO SCH (20:12)
[2021-11-01] MEDS: Levalbuterol Neb 1.25 MG/3 ML IH SCH ×7 (00:13→23:42)
[2021-11-01 03:08] LABS: VBG Ionized Calcium 1.39 mmol/L (1.15-1.35)
[2021-11-01 03:23] LABS: Basophils # 0.1 K/mcL (0.0-0.2); Basophils % 1.1 %; Eosinophils # 0.5 K/mcL (0.0-0.6); Eosinophils % 9.8 %; Hematocrit 29.9 % (37.5-50.1); Immature Granulocytes % 1.1 % (0-4); Lymphocytes # 1.1 K/mcL (0.6-4.6); Lymphocytes % 22.5 %; Mean Corpuscular HGB Conc 30.1 g/dL (31.6-35.5); Mean Corpuscular Hemoglobin 29.2 pg (28.0-33.3); Mean Corpuscular Volume 97.1 fL (83.0-100.0); Mean Platelet Volume 11.4 fL (9.4-12.4); Monocytes # 0.6 K/mcL (0.0-1.3); Monocytes % 11.7 %; Neutrophils # 2.5 K/mcL (1.6-8.9); Nucleated Red Blood Cells 0.4 /100 WBC (0); Platelet Count 225 K/mcL (140-400); Red Blood Count 3.08 M/mcL (4.19-5.50); Red Cell Distribution Width 16.8 % (11.5-14.5); Segmented Neutrophils % 53.8 %; White Blood Count 4.7 K/mcL (4.3-11.1)
[2021-11-01 03:53] LABS: BUN/Creatinine Ratio 43 (6-26); Blood Urea Nitrogen 37 mg/dL (8-23); Calcium 9.9 mg/dL (8.6-10.3); Carbon Dioxide 33 mEq/L (23-29); Chloride 105 mEq/L (98-107); Glucose 152 mg/dL (70-105); Osmolality,Calculated 306 (280-300); Phosphorous 2.6 mg/dL (2.7-4.5); Potassium 4.7 mEq/L (3.5-5.1); Sodium 142 mEq/L (136-145); eGFR For African Americans > 60 (> 60); eGFR For Non-African Americans > 60 (> 60)
[2021-11-01] MEDS: Insulin LISPRO 300 UNITS/3 ML VIAL SUBQ SCH ×5 (04:23→20:32)
[2021-11-01] MEDS: *HR* Enoxaparin 120 MG/0.8 ML SYRINGE SQ SCH ×2 (05:05→19:20)
[2021-11-01] MEDS: Docusate Oral Soln 100 MG/10 ML UDC GTUBE SCH ×2 (09:02→20:32)
[2021-11-01] MEDS: Cholecalciferol (D-3) 1,000 UNIT (25MCG) TABLET PO SCH (09:15)
[2021-11-01] MEDS: *HR* Amiodarone 200 MG TABLET PO SCH ×2 (09:15→20:33)
[2021-11-01] MEDS: Pregabalin 75 MG CAPSULE GTUBE SCH ×2 (09:15→20:33)
[2021-11-01] MEDS: Fenofibrate 54 MG TABLET PO SCH (09:16)
[2021-11-01] MEDS: Aspirin 81 MG TAB.CHEW PO SCH (09:17)
[2021-11-01] MEDS: Saline Nasal Spray 44 ML BOTTLE NS SCH ×4 (09:18→20:44)
[2021-11-01] MEDS: Chlorhexidine Rinse 15 ML MOUTHWASH MM SCH ×2 (09:18→20:32)
[2021-11-01] MEDS: Finasteride 5 MG TABLET PO SCH (09:18)
[2021-11-01] MEDS: Furosemide 40 MG/4 ML VIAL IVP SCH (09:19)
[2021-11-01] MEDS: Insulin DETEMIR 100 UNIT/ML X5UNITS SUBQ SCH ×2 (10:00→20:34)
[2021-11-01] MEDS ORDERED: Silver Nitrate Applicator 1 STICK..EA. TP ONE (19:07)
[2021-11-01] MEDS: QUEtiapine Fumarate 25 MG TABLET PO SCH (20:34)
[2021-11-02] MEDS: Insulin LISPRO 300 UNITS/3 ML VIAL SUBQ SCH ×6 (00:23→21:28)
[2021-11-02 03:39] LABS: Basophils # 0.1 K/mcL (0.0-0.2); Basophils % 1.4 %; Eosinophils # 0.3 K/mcL (0.0-0.6); Eosinophils % 8.1 %; Hematocrit 27.7 % (37.5-50.1); Hemoglobin 8.4 g/dL (12.9-16.9); Immature Granulocytes % 0.7 % (0-4); Lymphocytes # 0.9 K/mcL (0.6-4.6); Lymphocytes % 20.6 %; Mean Corpuscular HGB Conc 30.3 g/dL (31.6-35.5); Mean Corpuscular Hemoglobin 29.9 pg (28.0-33.3); Mean Corpuscular Volume 98.6 fL (83.0-100.0); Mean Platelet Volume 11.4 fL (9.4-12.4); Monocytes # 0.5 K/mcL (0.0-1.3); Monocytes % 11.2 %; Neutrophils # 2.4 K/mcL (1.6-8.9); Platelet Count 209 K/mcL (140-400); Red Blood Count 2.81 M/mcL (4.19-5.50); Red Cell Distribution Width 16.9 % (11.5-14.5); White Blood Count 4.2 K/mcL (4.3-11.1)
[2021-11-02 04:00] LABS: BUN/Creatinine Ratio 38 (6-26); Blood Urea Nitrogen 35 mg/dL (8-23); Carbon Dioxide 36 mEq/L (23-29); Chloride 104 mEq/L (98-107); Glucose 165 mg/dL (70-105); Magnesium 2.3 mg/dL (1.6-2.6); Osmolality,Calculated 306 (280-300); Phosphorous 3.1 mg/dL (2.7-4.5); Potassium 4.7 mEq/L (3.5-5.1); Sodium 142 mEq/L (136-145); eGFR For African Americans > 60 (> 60); eGFR For Non-African Americans > 60 (> 60)
[2021-11-02] MEDS: Levalbuterol Neb 1.25 MG/3 ML IH SCH ×6 (04:03→23:30)
[2021-11-02] MEDS: *HR* Enoxaparin 120 MG/0.8 ML SYRINGE SQ SCH ×2 (04:56→17:17)
[2021-11-02] MEDS: Chlorhexidine Rinse 15 ML MOUTHWASH MM SCH ×2 (07:52→21:29)
[2021-11-02] MEDS: Finasteride 5 MG TABLET PO SCH (07:52)
[2021-11-02] MEDS: Docusate Oral Soln 100 MG/10 ML UDC GTUBE SCH ×2 (07:52→21:29)
[2021-11-02] MEDS: Furosemide 40 MG/4 ML VIAL IVP SCH (07:53)
[2021-11-02] MEDS: Cholecalciferol (D-3) 1,000 UNIT (25MCG) TABLET PO SCH (07:53)
[2021-11-02] MEDS: Fenofibrate 54 MG TABLET PO SCH (07:53)
[2021-11-02] MEDS: Aspirin 81 MG TAB.CHEW PO SCH (07:53)
[2021-11-02] MEDS: *HR* Amiodarone 200 MG TABLET PO SCH ×2 (07:53→21:30)
[2021-11-02] MEDS: Saline Nasal Spray 44 ML BOTTLE NS SCH ×4 (07:54→21:28)
[2021-11-02] MEDS: Insulin DETEMIR 100 UNIT/ML X5UNITS SUBQ SCH ×2 (08:36→21:54)
[2021-11-02] MEDS ORDERED: D5% in Water 1,000 ML IVC PRN (12:49)
[2021-11-02] MEDS ORDERED: Ondansetron 4 MG/2 ML VIAL IVP PRN (12:49)
[2021-11-02] MEDS ORDERED: Naloxone 0.4 MG/ML INJ IVP PRN (12:49)
[2021-11-02] MEDS ORDERED: Saliva Stimulant 44.3ml BOTTLE PO PRN (12:49)
[2021-11-02] MEDS ORDERED: Dextrose 4 GM Chewable Tablets PO PRN ×2 (12:49)
[2021-11-02] MEDS ORDERED: *HR* Dextrose 50 % in Water (Syg) 50 ML SYRINGE IVP PRN (12:49)
[2021-11-02] MEDS: QUEtiapine Fumarate 25 MG TABLET PO SCH (21:29)
[2021-11-03] MEDS: Insulin LISPRO 300 UNITS/3 ML VIAL SUBQ SCH ×7 (00:25→23:29)
[2021-11-03] MEDS: Levalbuterol Neb 1.25 MG/3 ML IH SCH ×6 (03:33→23:40)
[2021-11-03 04:39] LABS: Eosinophils # 0.2 K/mcL (0.0-0.6); Eosinophils % 6.1 %; Hematocrit 27.5 % (37.5-50.1); Hemoglobin 8.5 g/dL (12.9-16.9); Lymphocytes % 25.5 %; Mean Corpuscular HGB Conc 30.9 g/dL (31.6-35.5); Mean Corpuscular Hemoglobin 29.9 pg (28.0-33.3); Mean Corpuscular Volume 96.8 fL (83.0-100.0); Mean Platelet Volume 10.8 fL (9.4-12.4); Monocytes # 0.4 K/mcL (0.0-1.3); Monocytes % 9.4 %; Neutrophils # 2.2 K/mcL (1.6-8.9); Platelet Count 196 K/mcL (140-400); Red Blood Count 2.84 M/mcL (4.19-5.50); Red Cell Distribution Width 17.5 % (11.5-14.5); White Blood Count 3.9 K/mcL (4.3-11.1)
[2021-11-03 04:58] LABS: BUN/Creatinine Ratio 35 (6-26); Blood Urea Nitrogen 33 mg/dL (8-23); Calcium 10.1 mg/dL (8.6-10.3); Carbon Dioxide 37 mEq/L (23-29); Chloride 102 mEq/L (98-107); Glucose 190 mg/dL (70-105); Osmolality,Calculated 306 (280-300); Potassium 4.5 mEq/L (3.5-5.1); Sodium 142 mEq/L (136-145); eGFR For African Americans > 60 (> 60); eGFR For Non-African Americans > 60 (> 60)
[2021-11-03] MEDS: *HR* Enoxaparin 120 MG/0.8 ML SYRINGE SQ SCH ×2 (06:12→18:33)
[2021-11-03] MEDS: Chlorhexidine Rinse 15 ML MOUTHWASH MM SCH ×2 (10:34→21:16)
[2021-11-03] MEDS: Docusate Oral Soln 100 MG/10 ML UDC GTUBE SCH ×2 (10:34→21:14)
[2021-11-03] MEDS: Furosemide 40 MG/4 ML VIAL IVP SCH (10:35)
[2021-11-03] MEDS: Cholecalciferol (D-3) 1,000 UNIT (25MCG) TABLET PO SCH (10:44)
[2021-11-03] MEDS: Aspirin 81 MG TAB.CHEW PO SCH (10:46)
[2021-11-03] MEDS: Fenofibrate 54 MG TABLET PO SCH (10:46)
[2021-11-03] MEDS: Finasteride 5 MG TABLET PO SCH (10:49)
[2021-11-03] MEDS: Saline Nasal Spray 44 ML BOTTLE NS SCH ×4 (10:49→21:30)
[2021-11-03] MEDS: *HR* Amiodarone 200 MG TABLET PO SCH ×2 (10:49→21:16)
[2021-11-03] MEDS: Insulin DETEMIR 100 UNIT/ML X5UNITS SUBQ SCH ×2 (10:51→21:16)
[2021-11-03] MEDS: QUEtiapine Fumarate 25 MG TABLET PO SCH (21:16)
[2021-11-04] MEDS: Levalbuterol Neb 1.25 MG/3 ML IH SCH ×5 (03:51→20:09)
[2021-11-04] MEDS: *HR* Enoxaparin 120 MG/0.8 ML SYRINGE SQ SCH (04:56)
[2021-11-04] MEDS: Insulin LISPRO 300 UNITS/3 ML VIAL SUBQ SCH ×6 (04:56→23:47)
[2021-11-04] MEDS: Chlorhexidine Rinse 15 ML MOUTHWASH MM SCH ×2 (07:47→20:39)
[2021-11-04] MEDS: Docusate Oral Soln 100 MG/10 ML UDC GTUBE SCH ×2 (07:47→20:38)
[2021-11-04] MEDS: Furosemide 40 MG/4 ML VIAL IVP SCH (07:48)
[2021-11-04] MEDS: Fenofibrate 54 MG TABLET PO SCH (07:49)
[2021-11-04] MEDS: Cholecalciferol (D-3) 1,000 UNIT (25MCG) TABLET PO SCH (07:50)
[2021-11-04] MEDS: Aspirin 81 MG TAB.CHEW PO SCH (07:50)
[2021-11-04] MEDS: *HR* Amiodarone 200 MG TABLET PO SCH (07:50)
[2021-11-04] MEDS: Finasteride 5 MG TABLET PO SCH (07:51)
[2021-11-04] MEDS: Saline Nasal Spray 44 ML BOTTLE NS SCH ×4 (07:53→20:38)
[2021-11-04] MEDS: Insulin DETEMIR 100 UNIT/ML X5UNITS SUBQ SCH ×2 (08:27→20:41)
[2021-11-04 09:17] LABS: Basophils % 0.9 %; Eosinophils # 0.2 K/mcL (0.0-0.6); Eosinophils % 4.8 %; Hematocrit 28.9 % (37.5-50.1); Hemoglobin 8.7 g/dL (12.9-16.9); Immature Granulocytes % 0.5 % (0-4); Lymphocytes # 1.1 K/mcL (0.6-4.6); Lymphocytes % 24.5 %; Mean Corpuscular HGB Conc 30.1 g/dL (31.6-35.5); Mean Corpuscular Hemoglobin 29.9 pg (28.0-33.3); Mean Corpuscular Volume 99.3 fL (83.0-100.0); Mean Platelet Volume 11.7 fL (9.4-12.4); Monocytes # 0.4 K/mcL (0.0-1.3); Monocytes % 10.1 %; Neutrophils # 2.6 K/mcL (1.6-8.9); Platelet Count 192 K/mcL (140-400); Red Blood Count 2.91 M/mcL (4.19-5.50); Red Cell Distribution Width 18.1 % (11.5-14.5); Segmented Neutrophils % 59.2 %; White Blood Count 4.4 K/mcL (4.3-11.1)
[2021-11-04] MEDS: Aspirin 81 MG TAB.CHEW GTUBE SCH (09:53)
[2021-11-04] MEDS: *HR* Amiodarone 200 MG TABLET GTUBE SCH ×2 (09:53→20:38)
[2021-11-04] MEDS: Cholecalciferol (D-3) 1,000 UNIT (25MCG) TABLET GTUBE SCH (09:53)
[2021-11-04 10:28] LABS: BUN/Creatinine Ratio 34 (6-26); Blood Urea Nitrogen 31 mg/dL (8-23); Calcium 10.3 mg/dL (8.6-10.3); Carbon Dioxide 38 mEq/L (23-29); Chloride 102 mEq/L (98-107); Glucose 137 mg/dL (70-105); Osmolality,Calculated 303 (280-300); Potassium 4.3 mEq/L (3.5-5.1); Sodium 142 mEq/L (136-145); eGFR For African Americans > 60 (> 60); eGFR For Non-African Americans > 60 (> 60)
[2021-11-04] MEDS: *HR* Rivaroxaban 15 MG TABLET PO SCH (20:38)
[2021-11-04] MEDS: QUEtiapine Fumarate 25 MG TABLET GTUBE SCH (20:38)
[2021-11-05] MEDS: Levalbuterol Neb 1.25 MG/3 ML IH SCH ×7 (00:03→23:24)
[2021-11-05 00:53] LABS: Hematocrit 28.9 % (37.5-50.1); Hemoglobin 8.7 g/dL (12.9-16.9)
[2021-11-05 01:05] LABS: Activated Partial Thrombo Time 48.8 Seconds (26.0-36.0)
[2021-11-05 01:11] LABS: INR 1.9; Prothrombin Time 21.4 Seconds (9.4-12.1)
[2021-11-05] MEDS: Insulin LISPRO 300 UNITS/3 ML VIAL SUBQ SCH ×5 (04:56→21:18)
[2021-11-05 05:41] LABS: Basophils # 0.1 K/mcL (0.0-0.2); Basophils % 1.3 %; Eosinophils # 0.2 K/mcL (0.0-0.6); Eosinophils % 5.8 %; Hematocrit 28.3 % (37.5-50.1); Hemoglobin 8.6 g/dL (12.9-16.9); Immature Granulocytes % 0.8 % (0-4); Lymphocytes % 25.2 %; Mean Corpuscular HGB Conc 30.4 g/dL (31.6-35.5); Mean Corpuscular Hemoglobin 30.1 pg (28.0-33.3); Monocytes # 0.5 K/mcL (0.0-1.3); Monocytes % 11.8 %; Neutrophils # 2.1 K/mcL (1.6-8.9); Platelet Count 182 K/mcL (140-400); Red Blood Count 2.86 M/mcL (4.19-5.50); Red Cell Distribution Width 18.5 % (11.5-14.5); Segmented Neutrophils % 55.1 %; White Blood Count 3.8 K/mcL (4.3-11.1)
[2021-11-05 05:57] LABS: BUN/Creatinine Ratio 32 (6-26); Blood Urea Nitrogen 32 mg/dL (8-23); Calcium 10.3 mg/dL (8.6-10.3); Carbon Dioxide 38 mEq/L (23-29); Chloride 103 mEq/L (98-107); Glucose 99 mg/dL (70-105); Osmolality,Calculated 303 (280-300); Potassium 4.2 mEq/L (3.5-5.1); Sodium 143 mEq/L (136-145); eGFR For African Americans > 60 (> 60); eGFR For Non-African Americans > 60 (> 60)
[2021-11-05] MEDS: Fenofibrate 54 MG TABLET PO SCH (08:45)
[2021-11-05] MEDS: Finasteride 5 MG TABLET PO SCH (08:45)
[2021-11-05] MEDS: *HR* Amiodarone 200 MG TABLET GTUBE SCH ×2 (08:47→21:17)
[2021-11-05] MEDS: Aspirin 81 MG TAB.CHEW GTUBE SCH (08:47)
[2021-11-05] MEDS: Cholecalciferol (D-3) 1,000 UNIT (25MCG) TABLET GTUBE SCH (08:47)
[2021-11-05] MEDS: *HR* Rivaroxaban 15 MG TABLET PO SCH ×2 (08:47→21:17)
[2021-11-05] MEDS: Furosemide 40 MG/4 ML VIAL IVP SCH (08:48)
[2021-11-05] MEDS: Chlorhexidine Rinse 15 ML MOUTHWASH MM SCH ×2 (08:48→21:19)
[2021-11-05] MEDS: Docusate Oral Soln 100 MG/10 ML UDC GTUBE SCH ×2 (08:48→21:19)
[2021-11-05] MEDS: Saline Nasal Spray 44 ML BOTTLE NS SCH ×4 (08:49→21:18)
[2021-11-05] MEDS: Insulin DETEMIR 100 UNIT/ML X5UNITS SUBQ SCH ×2 (08:52→21:34)
[2021-11-05 17:27] LABS: Hematocrit 29.2 % (37.5-50.1); Hemoglobin 8.7 g/dL (12.9-16.9)
[2021-11-05] MEDS: QUEtiapine Fumarate 25 MG TABLET GTUBE SCH (21:16)
[2021-11-06] MEDS: Insulin LISPRO 300 UNITS/3 ML VIAL SUBQ SCH ×6 (01:11→21:08)
[2021-11-06] MEDS: Levalbuterol Neb 1.25 MG/3 ML IH SCH ×6 (03:26→23:17)
[2021-11-06 06:10] LABS: Basophils # 0.1 K/mcL (0.0-0.2); Basophils % 1.3 %; Eosinophils # 0.2 K/mcL (0.0-0.6); Eosinophils % 5.4 %; Hematocrit 28.9 % (37.5-50.1); Hemoglobin 8.6 g/dL (12.9-16.9); Immature Granulocytes % 0.3 % (0-4); Lymphocytes # 0.9 K/mcL (0.6-4.6); Lymphocytes % 23.9 %; Mean Corpuscular HGB Conc 29.8 g/dL (31.6-35.5); Mean Corpuscular Hemoglobin 29.7 pg (28.0-33.3); Mean Corpuscular Volume 99.7 fL (83.0-100.0); Mean Platelet Volume 10.4 fL (9.4-12.4); Monocytes # 0.4 K/mcL (0.0-1.3); Monocytes % 9.9 %; Neutrophils # 2.2 K/mcL (1.6-8.9); Platelet Count 153 K/mcL (140-400); Red Cell Distribution Width 19.3 % (11.5-14.5); Segmented Neutrophils % 59.2 %; White Blood Count 3.7 K/mcL (4.3-11.1)
[2021-11-06 06:32] LABS: BUN/Creatinine Ratio 35 (6-26); Blood Urea Nitrogen 36 mg/dL (8-23); Calcium 10.2 mg/dL (8.6-10.3); Carbon Dioxide 37 mEq/L (23-29); Chloride 103 mEq/L (98-107); Glucose 179 mg/dL (70-105); Osmolality,Calculated 309 (280-300); Potassium 4.3 mEq/L (3.5-5.1); Sodium 143 mEq/L (136-145); eGFR For African Americans > 60 (> 60); eGFR For Non-African Americans > 60 (> 60)
[2021-11-06] MEDS: Furosemide 40 MG/4 ML VIAL IVP SCH (08:02)
[2021-11-06] MEDS: Fenofibrate 54 MG TABLET PO SCH (08:02)
[2021-11-06] MEDS: Cholecalciferol (D-3) 1,000 UNIT (25MCG) TABLET GTUBE SCH (08:03)
[2021-11-06] MEDS: Finasteride 5 MG TABLET PO SCH (08:03)
[2021-11-06] MEDS: Aspirin 81 MG TAB.CHEW GTUBE SCH (08:03)
[2021-11-06] MEDS: *HR* Amiodarone 200 MG TABLET GTUBE SCH ×2 (08:03→21:04)
[2021-11-06] MEDS: Chlorhexidine Rinse 15 ML MOUTHWASH MM SCH ×2 (08:07→21:03)
[2021-11-06] MEDS: *HR* Rivaroxaban 15 MG TABLET PO SCH ×2 (08:07→22:40)
[2021-11-06] MEDS: Saline Nasal Spray 44 ML BOTTLE NS SCH ×4 (08:07→21:04)
[2021-11-06] MEDS: Docusate Oral Soln 100 MG/10 ML UDC GTUBE SCH ×2 (08:08→21:04)
[2021-11-06] MEDS: Insulin DETEMIR 100 UNIT/ML X5UNITS SUBQ SCH ×2 (08:08→21:08)
[2021-11-06] MEDS: QUEtiapine Fumarate 25 MG TABLET GTUBE SCH (21:05)
[2021-11-07] MEDS: Insulin LISPRO 300 UNITS/3 ML VIAL SUBQ SCH ×6 (00:27→21:11)
[2021-11-07 03:46] LABS: Hematocrit 29.2 % (37.5-50.1); Hemoglobin 8.7 g/dL (12.9-16.9); Mean Corpuscular HGB Conc 29.8 g/dL (31.6-35.5); Mean Corpuscular Hemoglobin 30.2 pg (28.0-33.3); Mean Corpuscular Volume 101.4 fL (83.0-100.0); Mean Platelet Volume 10.8 fL (9.4-12.4); Platelet Count 153 K/mcL (140-400); Red Blood Count 2.88 M/mcL (4.19-5.50); Red Cell Distribution Width 19.7 % (11.5-14.5); White Blood Count 3.8 K/mcL (4.3-11.1)
[2021-11-07] MEDS: Levalbuterol Neb 1.25 MG/3 ML IH SCH ×6 (03:55→23:55)
[2021-11-07 04:06] LABS: BUN/Creatinine Ratio 33 (6-26); Blood Urea Nitrogen 32 mg/dL (8-23); Calcium 10.1 mg/dL (8.6-10.3); Carbon Dioxide 36 mEq/L (23-29); Chloride 104 mEq/L (98-107); Glucose 160 mg/dL (70-105); Osmolality,Calculated 308 (280-300); Potassium 4.1 mEq/L (3.5-5.1); Sodium 144 mEq/L (136-145); eGFR For African Americans > 60 (> 60); eGFR For Non-African Americans > 60 (> 60)
[2021-11-07] MEDS: Saline Nasal Spray 44 ML BOTTLE NS SCH ×4 (08:49→21:11)
[2021-11-07] MEDS: Fenofibrate 54 MG TABLET PO SCH (08:50)
[2021-11-07] MEDS: Finasteride 5 MG TABLET PO SCH (08:50)
[2021-11-07] MEDS: Furosemide 40 MG/4 ML VIAL IVP SCH (08:50)
[2021-11-07] MEDS: Cholecalciferol (D-3) 1,000 UNIT (25MCG) TABLET GTUBE SCH (08:51)
[2021-11-07] MEDS: Aspirin 81 MG TAB.CHEW GTUBE SCH (08:51)
[2021-11-07] MEDS: *HR* Rivaroxaban 15 MG TABLET PO SCH ×2 (08:51→20:58)
[2021-11-07] MEDS: Docusate Oral Soln 100 MG/10 ML UDC GTUBE SCH ×2 (08:52→20:58)
[2021-11-07] MEDS: *HR* Amiodarone 200 MG TABLET GTUBE SCH ×2 (08:52→20:58)
[2021-11-07] MEDS: Chlorhexidine Rinse 15 ML MOUTHWASH MM SCH ×2 (08:52→20:58)
[2021-11-07] MEDS: Insulin DETEMIR 100 UNIT/ML X5UNITS SUBQ SCH ×2 (08:54→20:59)
[2021-11-07] MEDS: QUEtiapine Fumarate 25 MG TABLET GTUBE SCH (20:59)
[2021-11-08] MEDS: Levalbuterol Neb 1.25 MG/3 ML IH SCH ×6 (03:41→23:38)
[2021-11-08 03:51] LABS: Mean Corpuscular Hemoglobin 29.8 pg (28.0-33.3); Mean Corpuscular Volume 99.3 fL (83.0-100.0); Platelet Count 149 K/mcL (140-400); Red Blood Count 3.02 M/mcL (4.19-5.50); Red Cell Distribution Width 19.9 % (11.5-14.5); White Blood Count 4.1 K/mcL (4.3-11.1)
[2021-11-08 04:05] LABS: BUN/Creatinine Ratio 33 (6-26); Blood Urea Nitrogen 31 mg/dL (8-23); Carbon Dioxide 36 mEq/L (23-29); Chloride 104 mEq/L (98-107); Glucose 181 mg/dL (70-105); Osmolality,Calculated 309 (280-300); Potassium 4.3 mEq/L (3.5-5.1); Sodium 144 mEq/L (136-145); eGFR For African Americans > 60 (> 60); eGFR For Non-African Americans > 60 (> 60)
[2021-11-08 05:06] LABS: Magnesium 2.2 mg/dL (1.6-2.6); Phosphorous 2.3 mg/dL (2.7-4.5)
[2021-11-08] MEDS: Insulin LISPRO 300 UNITS/3 ML VIAL SUBQ SCH ×6 (05:26→21:33)
[2021-11-08] MEDS: Furosemide 40 MG/4 ML VIAL IVP SCH (07:52)
[2021-11-08] MEDS: Saline Nasal Spray 44 ML BOTTLE NS SCH ×4 (07:52→21:05)
[2021-11-08] MEDS: Aspirin 81 MG TAB.CHEW GTUBE SCH (07:52)
[2021-11-08] MEDS: *HR* Rivaroxaban 15 MG TABLET PO SCH ×2 (07:53→21:05)
[2021-11-08] MEDS: Finasteride 5 MG TABLET PO SCH (07:53)
[2021-11-08] MEDS: Fenofibrate 54 MG TABLET PO SCH (07:53)
[2021-11-08] MEDS: *HR* Amiodarone 200 MG TABLET GTUBE SCH ×2 (07:53→21:03)
[2021-11-08] MEDS: Cholecalciferol (D-3) 1,000 UNIT (25MCG) TABLET GTUBE SCH (07:53)
[2021-11-08] MEDS: Docusate Oral Soln 100 MG/10 ML UDC GTUBE SCH ×2 (07:54→21:03)
[2021-11-08] MEDS: Chlorhexidine Rinse 15 ML MOUTHWASH MM SCH ×2 (07:54→21:02)
[2021-11-08] MEDS: Insulin DETEMIR 100 UNIT/ML X5UNITS SUBQ SCH ×2 (07:55→21:34)
[2021-11-08 20:44] LABS: Bilirubin,Urine Negative (Negative); Blood,Urine Large (Negative); Clarity,Urine Turbid (Clear); Color,Urine Light-Red (Yellow); Glucose,Urine (UA) Normal (Normal); Ketones,Urine Negative (Negative); Leukocyte Esterase,Urine Small (Negative); Nitrite,Urine Negative (Negative); PH,Urine 6.5 pH Units (5.0-8.0); Protein,Urine 100 mg/dL (Neg-Trace); Specific Gravity,Urine 1.023 (1.010-1.025)
[2021-11-08] MEDS: QUEtiapine Fumarate 25 MG TABLET GTUBE SCH (21:03)
[2021-11-09] MEDS: Levalbuterol Neb 1.25 MG/3 ML IH SCH ×6 (03:40→23:30)
[2021-11-09] MEDS: Insulin LISPRO 300 UNITS/3 ML VIAL SUBQ SCH ×6 (04:27→20:56)
[2021-11-09 06:17] LABS: Hematocrit 32.4 % (37.5-50.1); Mean Corpuscular HGB Conc 30.9 g/dL (31.6-35.5); Mean Corpuscular Hemoglobin 30.4 pg (28.0-33.3); Mean Corpuscular Volume 98.5 fL (83.0-100.0); Mean Platelet Volume 11.4 fL (9.4-12.4); Platelet Count 144 K/mcL (140-400); Red Blood Count 3.29 M/mcL (4.19-5.50); Red Cell Distribution Width 20.3 % (11.5-14.5); White Blood Count 4.9 K/mcL (4.3-11.1)
[2021-11-09 07:51] LABS: BUN/Creatinine Ratio 38 (6-26); Blood Urea Nitrogen 36 mg/dL (8-23); Calcium 10.1 mg/dL (8.6-10.3); Carbon Dioxide 37 mEq/L (23-29); Chloride 106 mEq/L (98-107); Glucose 168 mg/dL (70-105); Osmolality,Calculated 312 (280-300); Potassium 4.4 mEq/L (3.5-5.1); Sodium 145 mEq/L (136-145); eGFR For African Americans > 60 (> 60); eGFR For Non-African Americans > 60 (> 60)
[2021-11-09] MEDS: Chlorhexidine Rinse 15 ML MOUTHWASH MM SCH ×2 (10:59→20:50)
[2021-11-09] MEDS: Furosemide 40 MG/4 ML VIAL IVP SCH (10:59)
[2021-11-09] MEDS: Aspirin 81 MG TAB.CHEW GTUBE SCH (10:59)
[2021-11-09] MEDS: *HR* Amiodarone 200 MG TABLET GTUBE SCH ×2 (10:59→20:51)
[2021-11-09] MEDS: Saline Nasal Spray 44 ML BOTTLE NS SCH ×4 (10:59→20:50)
[2021-11-09] MEDS: Docusate Oral Soln 100 MG/10 ML UDC GTUBE SCH ×2 (10:59→20:49)
[2021-11-09] MEDS: Finasteride 5 MG TABLET PO SCH (11:00)
[2021-11-09] MEDS: Insulin DETEMIR 100 UNIT/ML X5UNITS SUBQ SCH ×2 (11:00→20:51)
[2021-11-09] MEDS: Cholecalciferol (D-3) 1,000 UNIT (25MCG) TABLET GTUBE SCH (11:00)
[2021-11-09] MEDS: Fenofibrate 54 MG TABLET PO SCH (11:00)
[2021-11-09] MEDS: *HR* Rivaroxaban 15 MG TABLET PO SCH ×2 (11:00→20:51)
[2021-11-09] MEDS: *HR* Metoprolol 5 MG/5 ML VIAL IVP PRN (16:39)
[2021-11-09] MEDS: QUEtiapine Fumarate 25 MG TABLET GTUBE SCH (20:51)
[2021-11-10] MEDS: Insulin LISPRO 300 UNITS/3 ML VIAL SUBQ SCH ×6 (03:12→20:45)
[2021-11-10] MEDS: Levalbuterol Neb 1.25 MG/3 ML IH SCH ×6 (03:48→23:07)
[2021-11-10 05:25] LABS: Hematocrit 30.4 % (37.5-50.1); Hemoglobin 9.2 g/dL (12.9-16.9); Immature Platelets 2.6 % (1.1-6.1); Mean Corpuscular HGB Conc 30.3 g/dL (31.6-35.5); Mean Corpuscular Hemoglobin 30.5 pg (28.0-33.3); Mean Corpuscular Volume 100.7 fL (83.0-100.0); Mean Platelet Volume 11.6 fL (9.4-12.4); Red Blood Count 3.02 M/mcL (4.19-5.50); Red Cell Distribution Width 20.2 % (11.5-14.5); White Blood Count 4.4 K/mcL (4.3-11.1)
[2021-11-10 05:31] LABS: BUN/Creatinine Ratio 43 (6-26); Blood Urea Nitrogen 39 mg/dL (8-23); Calcium 10.1 mg/dL (8.6-10.3); Carbon Dioxide 35 mEq/L (23-29); Chloride 107 mEq/L (98-107); Glucose 200 mg/dL (70-105); Osmolality,Calculated 317 (280-300); Potassium 4.3 mEq/L (3.5-5.1); Sodium 146 mEq/L (136-145); eGFR For African Americans > 60 (> 60); eGFR For Non-African Americans > 60 (> 60)
[2021-11-10] MEDS: Finasteride 5 MG TABLET PO SCH (07:32)
[2021-11-10] MEDS: Fenofibrate 54 MG TABLET PO SCH (09:17)
[2021-11-10] MEDS: *HR* Rivaroxaban 15 MG TABLET PO SCH ×2 (09:18→20:45)
[2021-11-10] MEDS: Cholecalciferol (D-3) 1,000 UNIT (25MCG) TABLET GTUBE SCH (09:18)
[2021-11-10] MEDS: *HR* Amiodarone 200 MG TABLET GTUBE SCH ×2 (09:18→20:45)
[2021-11-10] MEDS: Aspirin 81 MG TAB.CHEW GTUBE SCH (09:18)
[2021-11-10] MEDS: Furosemide 40 MG/4 ML VIAL IVP SCH (09:18)
[2021-11-10] MEDS: Docusate Oral Soln 100 MG/10 ML UDC GTUBE SCH ×2 (09:18→20:45)
[2021-11-10] MEDS: Saline Nasal Spray 44 ML BOTTLE NS SCH ×4 (09:19→20:45)
[2021-11-10] MEDS: Chlorhexidine Rinse 15 ML MOUTHWASH MM SCH ×2 (09:20→20:45)
[2021-11-10] MEDS: Insulin DETEMIR 100 UNIT/ML X5UNITS SUBQ SCH ×2 (09:21→20:46)
[2021-11-10] MEDS: QUEtiapine Fumarate 25 MG TABLET GTUBE SCH (20:45)
[2021-11-11] MEDS: Insulin LISPRO 300 UNITS/3 ML VIAL SUBQ SCH ×6 (00:19→21:28)
[2021-11-11] MEDS: Levalbuterol Neb 1.25 MG/3 ML IH SCH ×6 (03:25→23:35)
[2021-11-11 06:28] LABS: Hematocrit 31.7 % (37.5-50.1); Hemoglobin 9.3 g/dL (12.9-16.9); Mean Corpuscular HGB Conc 29.3 g/dL (31.6-35.5); Mean Corpuscular Hemoglobin 29.9 pg (28.0-33.3); Mean Corpuscular Volume 101.9 fL (83.0-100.0); Mean Platelet Volume 10.9 fL (9.4-12.4); Platelet Count 137 K/mcL (140-400); Red Blood Count 3.11 M/mcL (4.19-5.50); White Blood Count 4.7 K/mcL (4.3-11.1)
[2021-11-11 07:10] LABS: BUN/Creatinine Ratio 52 (6-26); Blood Urea Nitrogen 46 mg/dL (8-23); Calcium 10.3 mg/dL (8.6-10.3); Carbon Dioxide 36 mEq/L (23-29); Chloride 106 mEq/L (98-107); Glucose 156 mg/dL (70-105); Osmolality,Calculated 317 (280-300); Potassium 4.3 mEq/L (3.5-5.1); Sodium 146 mEq/L (136-145); eGFR For African Americans > 60 (> 60); eGFR For Non-African Americans > 60 (> 60)
[2021-11-11] MEDS: Saline Nasal Spray 44 ML BOTTLE NS SCH ×4 (07:50→21:28)
[2021-11-11] MEDS: Furosemide 40 MG/4 ML VIAL IVP SCH (08:35)
[2021-11-11] MEDS: Docusate Oral Soln 100 MG/10 ML UDC GTUBE SCH ×2 (08:36→21:28)
[2021-11-11] MEDS: *HR* Amiodarone 200 MG TABLET GTUBE SCH ×2 (08:36→21:29)
[2021-11-11] MEDS: *HR* Rivaroxaban 15 MG TABLET PO SCH ×2 (08:36→21:28)
[2021-11-11] MEDS: Fenofibrate 54 MG TABLET PO SCH (08:36)
[2021-11-11] MEDS: Chlorhexidine Rinse 15 ML MOUTHWASH MM SCH ×2 (08:36→21:28)
[2021-11-11] MEDS: Finasteride 5 MG TABLET PO SCH (08:36)
[2021-11-11] MEDS: Cholecalciferol (D-3) 1,000 UNIT (25MCG) TABLET GTUBE SCH (08:36)
[2021-11-11] MEDS: Aspirin 81 MG TAB.CHEW GTUBE SCH (08:37)
[2021-11-11] MEDS: Insulin DETEMIR 100 UNIT/ML X5UNITS SUBQ SCH ×2 (08:42→21:30)
[2021-11-11] MEDS: QUEtiapine Fumarate 25 MG TABLET GTUBE SCH (21:29)
[2021-11-12] MEDS: Insulin LISPRO 300 UNITS/3 ML VIAL SUBQ SCH ×6 (01:06→20:28)
[2021-11-12] MEDS: Levalbuterol Neb 1.25 MG/3 ML IH SCH ×6 (04:07→23:33)
[2021-11-12 05:58] LABS: Hematocrit 30.6 % (37.5-50.1); Hemoglobin 9.2 g/dL (12.9-16.9); Mean Corpuscular HGB Conc 30.1 g/dL (31.6-35.5); Mean Corpuscular Hemoglobin 30.4 pg (28.0-33.3); Platelet Count 141 K/mcL (140-400); Red Blood Count 3.03 M/mcL (4.19-5.50); Red Cell Distribution Width 20.3 % (11.5-14.5); White Blood Count 4.7 K/mcL (4.3-11.1)
[2021-11-12 06:47] LABS: BUN/Creatinine Ratio 45 (6-26); Blood Urea Nitrogen 47 mg/dL (8-23); Calcium 10.3 mg/dL (8.6-10.3); Carbon Dioxide 36 mEq/L (23-29); Chloride 105 mEq/L (98-107); Glucose 194 mg/dL (70-105); Osmolality,Calculated 320 (280-300); Potassium 4.1 mEq/L (3.5-5.1); Sodium 146 mEq/L (136-145); eGFR For African Americans > 60 (> 60); eGFR For Non-African Americans > 60 (> 60)
[2021-11-12] MEDS: *HR* Metoprolol 5 MG/5 ML VIAL IVP PRN (10:19)
[2021-11-12] MEDS: Furosemide 40 MG/4 ML VIAL IVP SCH (10:19)
[2021-11-12] MEDS: Saline Nasal Spray 44 ML BOTTLE NS SCH ×4 (10:19→20:37)
[2021-11-12] MEDS: Docusate Oral Soln 100 MG/10 ML UDC GTUBE SCH ×2 (10:21→20:39)
[2021-11-12] MEDS: Chlorhexidine Rinse 15 ML MOUTHWASH MM SCH ×2 (10:22→20:39)
[2021-11-12] MEDS: *HR* Amiodarone 200 MG TABLET GTUBE SCH ×2 (10:22→20:38)
[2021-11-12] MEDS: Cholecalciferol (D-3) 1,000 UNIT (25MCG) TABLET GTUBE SCH (10:22)
[2021-11-12] MEDS: Fenofibrate 54 MG TABLET PO SCH (10:22)
[2021-11-12] MEDS: *HR* Rivaroxaban 15 MG TABLET PO SCH ×2 (10:23→20:38)
[2021-11-12] MEDS: Finasteride 5 MG TABLET PO SCH (10:23)
[2021-11-12] MEDS: Aspirin 81 MG TAB.CHEW GTUBE SCH (10:23)
[2021-11-12] MEDS: Insulin DETEMIR 100 UNIT/ML X5UNITS SUBQ SCH ×2 (10:25→20:39)
[2021-11-12] MEDS: QUEtiapine Fumarate 25 MG TABLET GTUBE SCH (20:38)
[2021-11-13] MEDS: Insulin LISPRO 300 UNITS/3 ML VIAL SUBQ SCH ×6 (01:20→20:23)
[2021-11-13 03:20] LABS: Hematocrit 30.2 % (37.5-50.1); Mean Corpuscular HGB Conc 29.8 g/dL (31.6-35.5); Mean Corpuscular Hemoglobin 30.3 pg (28.0-33.3); Mean Corpuscular Volume 101.7 fL (83.0-100.0); Mean Platelet Volume 10.8 fL (9.4-12.4); Platelet Count 134 K/mcL (140-400); Red Blood Count 2.97 M/mcL (4.19-5.50); Red Cell Distribution Width 20.4 % (11.5-14.5); White Blood Count 5.1 K/mcL (4.3-11.1)
[2021-11-13] MEDS: Levalbuterol Neb 1.25 MG/3 ML IH SCH ×5 (03:28→20:25)
[2021-11-13 03:43] LABS: BUN/Creatinine Ratio 41 (6-26); Blood Urea Nitrogen 44 mg/dL (8-23); Calcium 10.1 mg/dL (8.6-10.3); Carbon Dioxide 34 mEq/L (23-29); Chloride 104 mEq/L (98-107); Glucose 149 mg/dL (70-105); Osmolality,Calculated 312 (280-300); Potassium 3.9 mEq/L (3.5-5.1); Sodium 144 mEq/L (136-145); eGFR For African Americans > 60 (> 60); eGFR For Non-African Americans > 60 (> 60)
[2021-11-13] MEDS: Insulin DETEMIR 100 UNIT/ML X5UNITS SUBQ SCH ×2 (11:05→20:25)
[2021-11-13] MEDS: Furosemide 40 MG/4 ML VIAL IVP SCH (11:06)
[2021-11-13] MEDS: Saline Nasal Spray 44 ML BOTTLE NS SCH ×4 (11:06→20:49)
[2021-11-13] MEDS: Chlorhexidine Rinse 15 ML MOUTHWASH MM SCH ×2 (11:06→20:23)
[2021-11-13] MEDS: Docusate Oral Soln 100 MG/10 ML UDC GTUBE SCH ×2 (11:06→20:23)
[2021-11-13] MEDS: Fenofibrate 54 MG TABLET PO SCH (11:07)
[2021-11-13] MEDS: Cholecalciferol (D-3) 1,000 UNIT (25MCG) TABLET GTUBE SCH (11:08)
[2021-11-13] MEDS: *HR* Amiodarone 200 MG TABLET GTUBE SCH ×2 (11:08→20:23)
[2021-11-13] MEDS: Aspirin 81 MG TAB.CHEW GTUBE SCH (11:08)
[2021-11-13] MEDS: *HR* Rivaroxaban 15 MG TABLET PO SCH ×2 (11:08→20:23)
[2021-11-13] MEDS: Finasteride 5 MG TABLET PO SCH (11:08)
[2021-11-13] MEDS: *HR* Metoprolol 5 MG/5 ML VIAL IVP PRN (11:28)
[2021-11-13] MEDS: QUEtiapine Fumarate 25 MG TABLET GTUBE SCH (20:23)
[2021-11-14] MEDS: Levalbuterol Neb 1.25 MG/3 ML IH SCH ×7 (00:07→23:54)
[2021-11-14] MEDS: Insulin LISPRO 300 UNITS/3 ML VIAL SUBQ SCH ×6 (00:37→20:32)
[2021-11-14] MEDS: *HR* Metoprolol 5 MG/5 ML VIAL IVP PRN ×4 (05:35→12:50)
[2021-11-14] MEDS: Insulin DETEMIR 100 UNIT/ML X5UNITS SUBQ SCH ×2 (08:13→20:36)
[2021-11-14] MEDS: Furosemide 40 MG/4 ML VIAL IVP SCH (08:14)
[2021-11-14] MEDS: *HR* Amiodarone 200 MG TABLET GTUBE SCH (08:30)
[2021-11-14] MEDS: Finasteride 5 MG TABLET PO SCH (08:30)
[2021-11-14] MEDS: Fenofibrate 54 MG TABLET PO SCH (08:30)
[2021-11-14] MEDS: *HR* Rivaroxaban 15 MG TABLET PO SCH ×2 (08:31→20:32)
[2021-11-14] MEDS: Cholecalciferol (D-3) 1,000 UNIT (25MCG) TABLET GTUBE SCH (08:31)
[2021-11-14] MEDS: Aspirin 81 MG TAB.CHEW GTUBE SCH (08:32)
[2021-11-14] MEDS: Saline Nasal Spray 44 ML BOTTLE NS SCH ×4 (08:32→20:32)
[2021-11-14] MEDS: Docusate Oral Soln 100 MG/10 ML UDC GTUBE SCH ×2 (08:33→20:31)
[2021-11-14] MEDS: Chlorhexidine Rinse 15 ML MOUTHWASH MM SCH ×2 (08:33→20:31)
[2021-11-14 09:05] LABS: Basophils % 0.4 %; Eosinophils % 0.3 %; Hematocrit 30.4 % (37.5-50.1); Hemoglobin 9.1 g/dL (12.9-16.9); Immature Granulocytes % 0.4 % (0-4); Lymphocytes # 1.4 K/mcL (0.6-4.6); Lymphocytes % 18.5 %; Mean Corpuscular HGB Conc 29.9 g/dL (31.6-35.5); Mean Corpuscular Hemoglobin 30.4 pg (28.0-33.3); Mean Corpuscular Volume 101.7 fL (83.0-100.0); Mean Platelet Volume 11.5 fL (9.4-12.4); Monocytes # 1.1 K/mcL (0.0-1.3); Monocytes % 14.4 %; Platelet Count 141 K/mcL (140-400); Red Blood Count 2.99 M/mcL (4.19-5.50); Red Cell Distribution Width 20.1 % (11.5-14.5); White Blood Count 7.6 K/mcL (4.3-11.1)
[2021-11-14 09:51] LABS: BUN/Creatinine Ratio 35 (6-26); Blood Urea Nitrogen 42 mg/dL (8-23); Carbon Dioxide 33 mEq/L (23-29); Chloride 104 mEq/L (98-107); Glucose 240 mg/dL (70-105); Osmolality,Calculated 314 (280-300); Sodium 143 mEq/L (136-145); eGFR For African Americans > 60 (> 60); eGFR For Non-African Americans > 60 (> 60)
[2021-11-14] MEDS ORDERED: *HR* Digoxin 0.5 MG/2 ML AMPUL IVP ONE ×2 (14:30→20:00)
[2021-11-14 14:37] LABS: Albumin 3.1 g/dL (3.5-5.7); Bilirubin,Direct 0.3 mg/dL (0.0-0.2); Bilirubin,Indirect 0.7 mg/dL (0.0-1.0); Total Protein 6.1 g/dL (6.4-8.9)
[2021-11-14 14:45] LABS: Thyroid Stimulating Hormone 2.966 mcIU/mL (0.340-5.600)
[2021-11-14] MEDS ORDERED: Vancomycin 1,750 MG in 0.9 % Sodium Chloride 250 ML IVPB SCH (17:00)
[2021-11-14] MEDS ORDERED: Vancomycin 1,750 MG/517.5 ML IV.SOLN IVPB ONE (17:19)
[2021-11-14 17:21] LABS: Hematocrit 30.7 % (37.5-50.1); Hemoglobin 9.2 g/dL (12.9-16.9); Mean Corpuscular Hemoglobin 30.2 pg (28.0-33.3); Mean Corpuscular Volume 100.7 fL (83.0-100.0); Platelet Count 148 K/mcL (140-400); Red Blood Count 3.05 M/mcL (4.19-5.50); Red Cell Distribution Width 19.5 % (11.5-14.5); White Blood Count 8.9 K/mcL (4.3-11.1)
[2021-11-14] MEDS ORDERED: Vancomycin 2,000 MG/520 ML IV.SOLN IVPB SCH (18:00)
[2021-11-14] MEDS: Cefepime HCl 2,000 MG in 0.9 % Sodium Chloride 10 ML IVP SCH (18:34)
[2021-11-14] MEDS: QUEtiapine Fumarate 25 MG TABLET GTUBE SCH (20:31)
[2021-11-14] MEDS: Amiodarone Premix 360 MG/200 ML BAG IVC SCH (20:32)
[2021-11-15] MEDS: Insulin LISPRO 300 UNITS/3 ML VIAL SUBQ SCH ×6 (00:41→20:22)
[2021-11-15] MEDS: Cefepime HCl 2,000 MG in 0.9 % Sodium Chloride 10 ML IVP SCH ×2 (03:20→08:28)
[2021-11-15] MEDS: Levalbuterol Neb 1.25 MG/3 ML IH SCH ×6 (04:14→23:34)
[2021-11-15] MEDS: Amiodarone Premix 360 MG/200 ML BAG IVC SCH ×2 (05:27→16:41)
[2021-11-15] MEDS ORDERED: Vancomycin 1,500 MG/265 ML IV.SOLN IVPB SCH (06:00)
[2021-11-15 07:31] LABS: Basophils # 0.1 K/mcL (0.0-0.2); Basophils % 0.8 %; Eosinophils % 0.1 %; Hematocrit 29.2 % (37.5-50.1); Hemoglobin 8.7 g/dL (12.9-16.9); Immature Granulocytes % 0.3 % (0-4); Lymphocytes # 1.2 K/mcL (0.6-4.6); Lymphocytes % 16.9 %; Mean Corpuscular HGB Conc 29.8 g/dL (31.6-35.5); Mean Corpuscular Volume 100.7 fL (83.0-100.0); Mean Platelet Volume 11.7 fL (9.4-12.4); Monocytes % 13.5 %; Neutrophils # 4.9 K/mcL (1.6-8.9); Platelet Count 140 K/mcL (140-400); Red Cell Distribution Width 19.1 % (11.5-14.5); Segmented Neutrophils % 68.4 %; White Blood Count 7.2 K/mcL (4.3-11.1)
[2021-11-15] MEDS: Insulin DETEMIR 100 UNIT/ML X5UNITS SUBQ SCH ×2 (08:27→20:20)
[2021-11-15] MEDS: Furosemide 40 MG/4 ML VIAL IVP SCH (08:28)
[2021-11-15] MEDS: *HR* Rivaroxaban 15 MG TABLET PO SCH ×2 (08:30→20:21)
[2021-11-15] MEDS: Aspirin 81 MG TAB.CHEW GTUBE SCH (08:30)
[2021-11-15] MEDS: Fenofibrate 54 MG TABLET PO SCH (08:30)
[2021-11-15] MEDS: Finasteride 5 MG TABLET PO SCH (08:31)
[2021-11-15] MEDS: Cholecalciferol (D-3) 1,000 UNIT (25MCG) TABLET GTUBE SCH (08:31)
[2021-11-15] MEDS: Chlorhexidine Rinse 15 ML MOUTHWASH MM SCH ×2 (08:36→20:20)
[2021-11-15] MEDS: Docusate Oral Soln 100 MG/10 ML UDC GTUBE SCH ×2 (08:36→20:20)
[2021-11-15] MEDS: Saline Nasal Spray 44 ML BOTTLE NS SCH ×4 (08:47→20:21)
[2021-11-15 09:37] LABS: Alanine Aminotransferase 26 Units/L (7-52); Albumin 3.1 g/dL (3.5-5.7); Alkaline Phosphatase 44 Units/L (34-104); Aspartate Amino Transferase 32 Units/L (13-39); BUN/Creatinine Ratio 34 (6-26); Bilirubin,Total 0.9 mg/dL (0.3-1.0); Blood Urea Nitrogen 48 mg/dL (8-23); Calcium 9.9 mg/dL (8.6-10.3); Carbon Dioxide 30 mEq/L (23-29); Chloride 105 mEq/L (98-107); Glucose 181 mg/dL (70-105); Magnesium 2.2 mg/dL (1.6-2.6); Osmolality,Calculated 311 (280-300); Potassium 4.4 mEq/L (3.5-5.1); Sodium 142 mEq/L (136-145); Total Protein 6.1 g/dL (6.4-8.9); eGFR For African Americans > 60 (> 60); eGFR For Non-African Americans 51 (> 60)
[2021-11-15] MEDS ORDERED: *HR* Digoxin 0.5 MG/2 ML AMPUL IVP SCH (14:00)
[2021-11-15] MEDS ORDERED: Isovue-370 500 ML BOTTLE IVP ONE (14:05)
[2021-11-15] MEDS: Vancomycin 2,000 MG/520 ML IV.SOLN IVPB SCH (20:16)
[2021-11-15] MEDS: QUEtiapine Fumarate 25 MG TABLET GTUBE SCH (20:21)
[2021-11-16] MEDS: Insulin LISPRO 300 UNITS/3 ML VIAL SUBQ SCH ×6 (00:56→20:29)
[2021-11-16] MEDS: Levalbuterol Neb 1.25 MG/3 ML IH SCH ×6 (03:54→23:26)
[2021-11-16 03:57] LABS: Basophils % 0.7 %; Eosinophils # 0.1 K/mcL (0.0-0.6); Eosinophils % 1.7 %; Hematocrit 26.6 % (37.5-50.1); Hemoglobin 7.9 g/dL (12.9-16.9); Immature Granulocytes % 0.3 % (0-4); Lymphocytes # 0.9 K/mcL (0.6-4.6); Lymphocytes % 14.4 %; Mean Corpuscular HGB Conc 29.7 g/dL (31.6-35.5); Mean Corpuscular Hemoglobin 30.4 pg (28.0-33.3); Mean Corpuscular Volume 102.3 fL (83.0-100.0); Mean Platelet Volume 11.3 fL (9.4-12.4); Monocytes # 0.7 K/mcL (0.0-1.3); Monocytes % 12.4 %; Neutrophils # 4.2 K/mcL (1.6-8.9); Platelet Count 133 K/mcL (140-400); Segmented Neutrophils % 70.5 %
[2021-11-16 04:11] LABS: Alanine Aminotransferase 24 Units/L (7-52); Albumin 2.7 g/dL (3.5-5.7); Albumin/Globulin Ratio 0.9 (1.1-2.2); Alkaline Phosphatase 41 Units/L (34-104); Aspartate Amino Transferase 22 Units/L (13-39); BUN/Creatinine Ratio 37 (6-26); Bilirubin,Total 0.6 mg/dL (0.3-1.0); Blood Urea Nitrogen 47 mg/dL (8-23); Calcium 9.4 mg/dL (8.6-10.3); Carbon Dioxide 30 mEq/L (23-29); Chloride 102 mEq/L (98-107); Globulin 3.1 g/dL (2.4-3.5); Glucose 140 mg/dL (70-105); Magnesium 2.2 mg/dL (1.6-2.6); Osmolality,Calculated 307 (280-300); Phosphorous 3.7 mg/dL (2.7-4.5); Potassium 3.8 mEq/L (3.5-5.1); Sodium 141 mEq/L (136-145); Total Protein 5.8 g/dL (6.4-8.9); eGFR For African Americans > 60 (> 60); eGFR For Non-African Americans 57 (> 60)
[2021-11-16 04:12] LABS: BUN/Creatinine Ratio 35 (6-26); Blood Urea Nitrogen 46 mg/dL (8-23); Calcium 9.3 mg/dL (8.6-10.3); Carbon Dioxide 30 mEq/L (23-29); Chloride 102 mEq/L (98-107); Glucose 134 mg/dL (70-105); Osmolality,Calculated 304 (280-300); Potassium 3.8 mEq/L (3.5-5.1); Sodium 140 mEq/L (136-145); eGFR For African Americans > 60 (> 60); eGFR For Non-African Americans 56 (> 60)
[2021-11-16] MEDS: Amiodarone Premix 360 MG/200 ML BAG IVC SCH (04:58)
[2021-11-16] MEDS: *HR* Digoxin 0.125 MG TABLET PO SCH (08:49)
[2021-11-16] MEDS: Insulin DETEMIR 100 UNIT/ML X5UNITS SUBQ SCH ×2 (08:49→20:29)
[2021-11-16] MEDS: Chlorhexidine Rinse 15 ML MOUTHWASH MM SCH ×2 (08:50→20:30)
[2021-11-16] MEDS: *HR* Amiodarone 200 MG TABLET PO SCH ×2 (08:50→20:31)
[2021-11-16] MEDS: Saline Nasal Spray 44 ML BOTTLE NS SCH ×4 (08:50→20:30)
[2021-11-16] MEDS: Finasteride 5 MG TABLET PO SCH (08:50)
[2021-11-16] MEDS: Docusate Oral Soln 100 MG/10 ML UDC GTUBE SCH ×2 (08:50→20:30)
[2021-11-16] MEDS: Aspirin 81 MG TAB.CHEW GTUBE SCH (08:50)
[2021-11-16] MEDS: Fenofibrate 54 MG TABLET PO SCH (08:51)
[2021-11-16] MEDS: *HR* Rivaroxaban 15 MG TABLET PO SCH ×2 (08:54→20:30)
[2021-11-16] MEDS: Cholecalciferol (D-3) 1,000 UNIT (25MCG) TABLET GTUBE SCH (08:54)
[2021-11-16] MEDS ORDERED: 0.9 % Sodium Chloride 1,000 ML ONE (08:59)
[2021-11-16] MEDS ORDERED: 0.9 % Sodium Chloride 500 ML IVC ONE (09:05)
[2021-11-16] MEDS ORDERED: Albumin Human 5% 12.5 GM/250 ML IV.SOLN IVPB ONE (09:51)
[2021-11-16 10:13] LABS: Basophils % 0.7 %; Eosinophils # 0.2 K/mcL (0.0-0.6); Eosinophils % 2.7 %; Hematocrit 26.5 % (37.5-50.1); Hemoglobin 7.8 g/dL (12.9-16.9); Immature Granulocytes % 0.3 % (0-4); Lymphocytes # 0.6 K/mcL (0.6-4.6); Lymphocytes % 9.8 %; Mean Corpuscular HGB Conc 29.4 g/dL (31.6-35.5); Mean Corpuscular Hemoglobin 29.9 pg (28.0-33.3); Mean Corpuscular Volume 101.5 fL (83.0-100.0); Monocytes # 0.7 K/mcL (0.0-1.3); Monocytes % 11.3 %; Neutrophils # 4.5 K/mcL (1.6-8.9); Platelet Count 137 K/mcL (140-400); Red Blood Count 2.61 M/mcL (4.19-5.50); Red Cell Distribution Width 18.9 % (11.5-14.5); Segmented Neutrophils % 75.2 %; White Blood Count 5.9 K/mcL (4.3-11.1)
[2021-11-16 10:42] LABS: Troponin I 0.05 ng/mL (< 0.04)
[2021-11-16 13:07] LABS: Lactate Dehydrogenase 170 Units/L (140-271); Total Protein 5.7 g/dL (6.4-8.9)
[2021-11-16] MEDS: Vancomycin 2,000 MG/520 ML IV.SOLN IVPB SCH (20:29)
[2021-11-16] MEDS: QUEtiapine Fumarate 25 MG TABLET GTUBE SCH (20:31)
[2021-11-17] MEDS: Insulin LISPRO 300 UNITS/3 ML VIAL SUBQ SCH ×6 (00:12→19:51)
[2021-11-17 01:26] LABS: Basophils % 0.9 %; Eosinophils # 0.2 K/mcL (0.0-0.6); Eosinophils % 4.7 %; Hematocrit 24.6 % (37.5-50.1); Hemoglobin 7.5 g/dL (12.9-16.9); Immature Granulocytes % 0.7 % (0-4); Lymphocytes # 0.6 K/mcL (0.6-4.6); Mean Corpuscular HGB Conc 30.5 g/dL (31.6-35.5); Mean Corpuscular Hemoglobin 29.8 pg (28.0-33.3); Mean Corpuscular Volume 97.6 fL (83.0-100.0); Mean Platelet Volume 10.5 fL (9.4-12.4); Monocytes # 0.5 K/mcL (0.0-1.3); Monocytes % 11.9 %; Neutrophils # 3.1 K/mcL (1.6-8.9); Platelet Count 142 K/mcL (140-400); Red Blood Count 2.52 M/mcL (4.19-5.50); Red Cell Distribution Width 18.7 % (11.5-14.5); Segmented Neutrophils % 68.8 %; White Blood Count 4.5 K/mcL (4.3-11.1)
[2021-11-17 01:46] LABS: Alanine Aminotransferase 29 Units/L (7-52); Albumin 2.7 g/dL (3.5-5.7); Albumin/Globulin Ratio 0.9 (1.1-2.2); Alkaline Phosphatase 41 Units/L (34-104); Aspartate Amino Transferase 28 Units/L (13-39); BUN/Creatinine Ratio 40 (6-26); Bilirubin,Total 0.6 mg/dL (0.3-1.0); Blood Urea Nitrogen 42 mg/dL (8-23); Carbon Dioxide 32 mEq/L (23-29); Chloride 106 mEq/L (98-107); Globulin 3.1 g/dL (2.4-3.5); Glucose 158 mg/dL (70-105); Osmolality,Calculated 308 (280-300); Potassium 4.1 mEq/L (3.5-5.1); Sodium 142 mEq/L (136-145); Total Protein 5.8 g/dL (6.4-8.9); eGFR For African Americans > 60 (> 60); eGFR For Non-African Americans > 60 (> 60)
[2021-11-17] MEDS: Levalbuterol Neb 1.25 MG/3 ML IH SCH ×6 (03:44→23:29)
[2021-11-17] MEDS: *HR* Rivaroxaban 15 MG TABLET PO SCH ×2 (09:18→19:53)
[2021-11-17] MEDS: Aspirin 81 MG TAB.CHEW GTUBE SCH (09:18)
[2021-11-17] MEDS: *HR* Digoxin 0.125 MG TABLET PO SCH (09:18)
[2021-11-17] MEDS: Finasteride 5 MG TABLET PO SCH (09:18)
[2021-11-17] MEDS: *HR* Amiodarone 200 MG TABLET PO SCH ×2 (09:18→19:53)
[2021-11-17] MEDS: Cholecalciferol (D-3) 1,000 UNIT (25MCG) TABLET GTUBE SCH (09:18)
[2021-11-17] MEDS: Fenofibrate 54 MG TABLET PO SCH (09:19)
[2021-11-17] MEDS: Saline Nasal Spray 44 ML BOTTLE NS SCH ×4 (09:20→19:52)
[2021-11-17] MEDS: Insulin DETEMIR 100 UNIT/ML X5UNITS SUBQ SCH ×2 (09:20→19:51)
[2021-11-17] MEDS: Docusate Oral Soln 100 MG/10 ML UDC GTUBE SCH ×2 (09:20→19:52)
[2021-11-17] MEDS ORDERED: Furosemide 40 MG/4 ML VIAL IVP ONE (09:38)
[2021-11-17] MEDS: Chlorhexidine Rinse 15 ML MOUTHWASH MM SCH ×2 (10:54→19:52)
[2021-11-17] MEDS: Vancomycin 2,000 MG/520 ML IV.SOLN IVPB SCH (18:00)
[2021-11-17] MEDS: QUEtiapine Fumarate 25 MG TABLET GTUBE SCH (19:53)
[2021-11-18] MEDS: Insulin LISPRO 300 UNITS/3 ML VIAL SUBQ SCH ×7 (00:07→23:41)
[2021-11-18 03:18] LABS: Basophils # 0.1 K/mcL (0.0-0.2); Eosinophils # 0.3 K/mcL (0.0-0.6); Hematocrit 25.7 % (37.5-50.1); Hemoglobin 7.6 g/dL (12.9-16.9); Immature Granulocytes % 0.2 % (0-4); Mean Corpuscular HGB Conc 29.6 g/dL (31.6-35.5); Mean Corpuscular Hemoglobin 29.7 pg (28.0-33.3); Mean Corpuscular Volume 100.4 fL (83.0-100.0); Mean Platelet Volume 10.9 fL (9.4-12.4); Monocytes # 0.7 K/mcL (0.0-1.3); Monocytes % 13.7 %; Neutrophils # 3.1 K/mcL (1.6-8.9); Platelet Count 168 K/mcL (140-400); Red Blood Count 2.56 M/mcL (4.19-5.50); Red Cell Distribution Width 18.8 % (11.5-14.5); Segmented Neutrophils % 60.1 %; White Blood Count 5.2 K/mcL (4.3-11.1)
[2021-11-18] MEDS: Levalbuterol Neb 1.25 MG/3 ML IH SCH ×6 (03:21→23:51)
[2021-11-18 03:40] LABS: BUN/Creatinine Ratio 39 (6-26); Blood Urea Nitrogen 42 mg/dL (8-23); Calcium 9.2 mg/dL (8.6-10.3); Carbon Dioxide 33 mEq/L (23-29); Chloride 105 mEq/L (98-107); Glucose 161 mg/dL (70-105); Osmolality,Calculated 310 (280-300); Potassium 4.4 mEq/L (3.5-5.1); Sodium 143 mEq/L (136-145); eGFR For African Americans > 60 (> 60); eGFR For Non-African Americans > 60 (> 60)
[2021-11-18] MEDS: Insulin DETEMIR 100 UNIT/ML X5UNITS SUBQ SCH ×2 (08:11→20:59)
[2021-11-18] MEDS: Docusate Oral Soln 100 MG/10 ML UDC GTUBE SCH ×2 (08:12→20:57)
[2021-11-18] MEDS: Cholecalciferol (D-3) 1,000 UNIT (25MCG) TABLET GTUBE SCH (08:12)
[2021-11-18] MEDS: Fenofibrate 54 MG TABLET PO SCH (08:12)
[2021-11-18] MEDS: *HR* Rivaroxaban 15 MG TABLET PO SCH ×2 (08:12→20:57)
[2021-11-18] MEDS: *HR* Amiodarone 200 MG TABLET PO SCH ×2 (08:12→20:57)
[2021-11-18] MEDS: Chlorhexidine Rinse 15 ML MOUTHWASH MM SCH ×2 (08:12→20:57)
[2021-11-18] MEDS: Finasteride 5 MG TABLET PO SCH (08:12)
[2021-11-18] MEDS: *HR* Digoxin 0.125 MG TABLET PO SCH (08:12)
[2021-11-18] MEDS: Aspirin 81 MG TAB.CHEW GTUBE SCH (08:13)
[2021-11-18] MEDS: Saline Nasal Spray 44 ML BOTTLE NS SCH ×4 (08:13→20:56)
[2021-11-18 15:33] LABS: Appearance of Pleural Fl Hazy (Clear)
[2021-11-18 15:37] LABS: RBC,Pleural Fluid 13000 RBC/mcL
[2021-11-18] MEDS: QUEtiapine Fumarate 25 MG TABLET GTUBE SCH (20:57)
[2021-11-18] MEDS ORDERED: Acetaminophen 325 MG TABLET PO PRN (21:30)
[2021-11-19] MEDS: Insulin LISPRO 300 UNITS/3 ML VIAL SUBQ SCH ×5 (04:09→19:56)
[2021-11-19] MEDS: Levalbuterol Neb 1.25 MG/3 ML IH SCH ×6 (04:18→23:19)
[2021-11-19] MEDS: Aspirin Enteric Coated 81 MG Tablet PO SCH (08:16)
[2021-11-19] MEDS: *HR* Digoxin 0.125 MG TABLET PO SCH (08:16)
[2021-11-19] MEDS: *HR* Amiodarone 200 MG TABLET PO SCH ×2 (08:16→19:57)
[2021-11-19] MEDS: Finasteride 5 MG TABLET PO SCH (08:16)
[2021-11-19] MEDS: Cholecalciferol (D-3) 1,000 UNIT (25MCG) TABLET GTUBE SCH (08:16)
[2021-11-19] MEDS: Fenofibrate 54 MG TABLET PO SCH (08:17)
[2021-11-19] MEDS: *HR* Rivaroxaban 15 MG TABLET PO SCH ×2 (08:17→19:59)
[2021-11-19] MEDS: Chlorhexidine Rinse 15 ML MOUTHWASH MM SCH ×2 (08:17→19:57)
[2021-11-19] MEDS: Saline Nasal Spray 44 ML BOTTLE NS SCH ×4 (08:18→19:57)
[2021-11-19] MEDS: Insulin DETEMIR 100 UNIT/ML X5UNITS SUBQ SCH ×2 (08:18→19:58)
[2021-11-19] MEDS ORDERED: Furosemide 40 MG/4 ML VIAL IVP ONE (11:46)
[2021-11-19 16:39] LABS: BUN/Creatinine Ratio 46 (6-26); Blood Urea Nitrogen 46 mg/dL (8-23); Calcium 9.8 mg/dL (8.6-10.3); Carbon Dioxide 32 mEq/L (23-29); Chloride 102 mEq/L (98-107); Glucose 109 mg/dL (70-105); Osmolality,Calculated 302 (280-300); Potassium 5.3 mEq/L (3.5-5.1); Sodium 140 mEq/L (136-145); eGFR For African Americans > 60 (> 60); eGFR For Non-African Americans > 60 (> 60)
[2021-11-19 16:59] LABS: Hematocrit 26.1 % (37.5-50.1); Hemoglobin 7.9 g/dL (12.9-16.9); Mean Corpuscular HGB Conc 30.3 g/dL (31.6-35.5); Mean Corpuscular Hemoglobin 29.7 pg (28.0-33.3); Mean Corpuscular Volume 98.1 fL (83.0-100.0); Mean Platelet Volume 11.4 fL (9.4-12.4); Platelet Count 218 K/mcL (140-400); Red Blood Count 2.66 M/mcL (4.19-5.50); Red Cell Distribution Width 18.8 % (11.5-14.5); White Blood Count 5.9 K/mcL (4.3-11.1)
[2021-11-19] MEDS ORDERED: QUEtiapine Fumarate 25 MG TABLET PO SCH (21:00)
[2021-11-20] MEDS: Insulin LISPRO 300 UNITS/3 ML VIAL SUBQ SCH ×4 (00:16→11:24)
[2021-11-20 02:53] LABS: Fluid Source for Cholesterol PLEURAL FLUID; Fluid Source for Triglycerides PLEURAL FLUID
[2021-11-20] MEDS: Levalbuterol Neb 1.25 MG/3 ML IH SCH ×4 (03:40→16:02)
[2021-11-20 03:43] VITALS: O2SAT 96
[2021-11-20 06:01] LABS: Hematocrit 24.5 % (37.5-50.1); Hemoglobin 7.4 g/dL (12.9-16.9); Mean Corpuscular HGB Conc 30.2 g/dL (31.6-35.5); Mean Corpuscular Hemoglobin 29.7 pg (28.0-33.3); Mean Corpuscular Volume 98.4 fL (83.0-100.0); Mean Platelet Volume 10.8 fL (9.4-12.4); Platelet Count 239 K/mcL (140-400); Red Blood Count 2.49 M/mcL (4.19-5.50); Red Cell Distribution Width 18.4 % (11.5-14.5); White Blood Count 4.1 K/mcL (4.3-11.1)
[2021-11-20 06:19] LABS: BUN/Creatinine Ratio 43 (6-26); Blood Urea Nitrogen 40 mg/dL (8-23); Calcium 9.2 mg/dL (8.6-10.3); Carbon Dioxide 36 mEq/L (23-29); Chloride 101 mEq/L (98-107); Glucose 145 mg/dL (70-105); Osmolality,Calculated 300 (280-300); Potassium 4.5 mEq/L (3.5-5.1); Sodium 139 mEq/L (136-145); eGFR For African Americans > 60 (> 60); eGFR For Non-African Americans > 60 (> 60)
[2021-11-20] MEDS: Finasteride 5 MG TABLET PO SCH (07:26)
[2021-11-20] MEDS: Aspirin Enteric Coated 81 MG Tablet PO SCH (07:26)
[2021-11-20] MEDS: Fenofibrate 54 MG TABLET PO SCH (07:26)
[2021-11-20] MEDS: *HR* Digoxin 0.125 MG TABLET PO SCH (07:26)
[2021-11-20] MEDS: Chlorhexidine Rinse 15 ML MOUTHWASH MM SCH (07:27)
[2021-11-20] MEDS: *HR* Rivaroxaban 15 MG TABLET PO SCH (07:27)
[2021-11-20] MEDS: Cholecalciferol (D-3) 1,000 UNIT (25MCG) TABLET GTUBE SCH (07:27)
[2021-11-20] MEDS: *HR* Amiodarone 200 MG TABLET PO SCH (07:27)
[2021-11-20] MEDS: Saline Nasal Spray 44 ML BOTTLE NS SCH ×3 (07:28→16:19)
[2021-11-20] MEDS: Insulin DETEMIR 100 UNIT/ML X5UNITS SUBQ SCH (07:45)
[2021-11-20 07:52] LABS: Cholesterol,Body Fluid 31 mg/dL; Triglycerides,Body Fluid 16 mg/dL
[2021-11-20 11:05] VITALS: PULSE 83; TEMP 97.5
[2021-11-20 12:34] VITALS: BP 125/71
[2021-11-20 15:42] LABS: Adenovirus Not Detected (Not Detect); Bordetella Pertussis Not Detected (Not Detect); Chlamydophila pneumoniae Not Detected (Not Detect); Coronavirus 229E Not Detected (Not Detect); Coronavirus HKU1 Not Detected (Not Detect); Coronavirus NL63 Not Detected (Not Detect); Coronavirus OC43 Not Detected (Not Detect); Human Metapneumovirus Not Detected (Not Detect); Human Rhinovirus/Enterovirus Not Detected (Not Detect); Influenza A Subtype 2009 H1 Not Detected (Not Detect); Influenza B Not Detected (Not Detect); Mycoplasma pneumoniae Not Detected (Not Detect); Parainfluenza Virus 1 Not Detected (Not Detect); Parainfluenza Virus 2 Not Detected (Not Detect); Parainfluenza Virus 3 Not Detected (Not Detect); Parainfluenza Virus 4 Not Detected (Not Detect); Respiratory Syncytial Virus Not Detected (Not Detect); SARS-CoV-2 Not Detected (Not Detect)
[2021-11-26] MEDS ORDERED: *HR* Rivaroxaban 10 MG TABLET PO SCH (17:00)
== END 2021-11-20 16:40 | disposition critical access hospital (66) | DRG 3 ==
LOC: INVDIALAB 07:34 → 3BNU 07:34 → SUATTDRO 10-01 10:44 → ICNU 10-02 18:02 → 2NNU 10-18 14:38 → ICNU 10-24 13:38 → 2NNU 11-02 20:44
PROVIDERS: ADMIT Thoracic Surgery (Cardiothoracic Vascular Surgery); ATTEND Family Medicine
PROC: ENDOBRF (2021-10-22 17:00)